=== PATIENT | male | born 1950 | race Two or more races ===

== ENCOUNTER 2019-09-18 22:00 | Inpatient (IN) | payer MEDICAID, OTHER ==
[~2019-09-18] VITALS: Ht 170.2 cm; Wt 117.8 kg
[2019-09-18 22:45] LABS: Basophils # (auto) 0 10 ^3/uL (0-0.2); Eosinophils # (auto) 0.2 10 ^3/uL (0-0.8); Eosinophils % (auto) 1.1 % (0.0-7.0); Lymphocytes # (auto) 0.6 10 ^3/uL (0.4-5.4); Mean Corpuscular Hgb Conc. 32.6 g/dL (32.0-36.0); Monocytes # (auto) 0.3 10 ^3/uL (0-1.3); Red Cell Distribution Width 14.3 % (11.8-14.3)
[2019-09-18] MEDS ORDERED: ACETAMINOPHEN 325 MG TAB PO ONE (22:45)
[2019-09-18 22:46] LABS: Basophils % (auto) 0.1 % (0.0-2.0); Hematocrit 43.1 % (41.0-53.0); Lymphocytes % (auto) 3.3 % (10.0-50.0); Mean Corpuscular Hemoglobin 26.8 pg (28.0-32.0); Mean Corpuscular Volume 82.3 fL (80.0-100.0); Monocytes % (auto) 1.6 % (0.0-12.0); Neutrophils # (auto) 16.5 10 ^3/uL (1.6-8.6); Neutrophils % (auto) 93.9 % (37.0-80.0); Platelet Count (auto) 195 10^3/uL (140-450); Red Blood Cells 5.23 10^6/uL (4.5-5.90); White Blood Cell 17.6 10^3/uL (4.4-10.8)
[2019-09-18 23:02] LABS: Albumin 2.8 g/dL (3.4-5.0); Anion Gap 13 (5-15); BUN/Creatinine Ratio 19.8; Blood Urea Nitrogen 55 mg/dL (7-18); Calcium 8.2 mg/dL (8.5-10.1); Carbon Dioxide 17 mmol/L (21-32); Chloride 105 mmol/L (98-107); GFR African American 29 mL/min; GFR Non-African American 24 mL/min; Glucose 151 mg/dL (74-106); Magnesium 2.1 mg/dL (1.6-2.6); Potassium 5.3 mmol/L (3.5-5.1); Sodium 135 mmol/L (136-145)
[2019-09-18 23:07] LABS: Alanine Aminotransferase 30 U/L (16-61); Alkaline Phosphatase 177 U/L (45-117); Aspartate Aminotransferase 42 U/L (15-37); Bilirubin, Total 1.1 mg/dL (0.2-1.0); INR 1.04 (0.9-1.15); Partial Thromboplastin Time 26.5 sec (23.64-32.05); Total Protein 7.1 g/dL (6.4-8.2)
[2019-09-18 23:13] LABS: Urine Bacteria MANY /hpf (None Seen); Urine Blood 2+ /uL (Negative); Urine Mucus FEW (None Seen); Urine Specific Gravity 1.013 (1.001-1.035); Urine WBC 6196 /hpf (0 - 3); Urine WBC Clumps PRESENT /hpf (None Seen)
[2019-09-18] MEDS ORDERED: SUCCINYLCHOLINE CHLORIDE 20 MG/ML 10ML VIAL IV ONE ×2 (23:14→23:15)
[2019-09-18] MEDS ORDERED: ETOMIDATE (2MG/ML) 20ML VIAL IV ONE ×2 (23:14→23:15)
[2019-09-18] MEDS ORDERED: SODIUM CHLORIDE 0.9% 2,000 ML IV ONE (23:15)
[2019-09-18] MEDS ORDERED: NOREPINEPHRINE 8 MG/250ML KIT 250 ML IV ONE (23:21)
[2019-09-18] MEDS: MIDAZOLAM DRIP 50 mg/50mL 50 ML IV SCH (23:28)
[2019-09-18] MEDS ORDERED: MIDAZOLAM HCL 5 MG/ML-1ML VIAL ONE (23:39)
[2019-09-18] MEDS: NOREPINEPHRINE 8 MG/250ML KIT 250 ML IV SCH (23:45)
[2019-09-18] MEDS ORDERED: MIDAZOLAM HCL 5 MG/ML-1ML VIAL IV ONE (23:45)
[2019-09-18 23:46] LABS: Lactic Acid w/Reflex 4.7 mmol/L (0.4-2.0)
[2019-09-19] VITALS (70 sets, daily range): BP systolic 91–129; BP diastolic 48–75
[2019-09-19] MEDS ORDERED: cefTRIAXone 1GM/50ML D5W 50 ML IV ONE (00:15)
[2019-09-19] MEDS ORDERED: AZITHROMYCIN 500MG/ 250ML 250 ML IV ONE (00:15)
[2019-09-19] MEDS ORDERED: SODIUM CHLORIDE 0.9% 3,000 ML IV ONE (00:15)
[2019-09-19] MEDS ORDERED: SODIUM CHLORIDE 0.9% 1,000 ML IV ONE (02:15)
[2019-09-19] MEDS ORDERED: SODIUM CHLORIDE 0.9% 1,000 ML IV SCH (02:45)
[2019-09-19 03:28] LABS: CRP High Sensitivity 9.32 mg/dL (< 0.3)
[2019-09-19] MEDS ORDERED: NITROGLYCERIN 0.4 MG SL TAB SL PRN (03:45)
[2019-09-19] MEDS ORDERED: MORPHINE SULF INJ 2 MG/ML SYRINGE 1ML IV PRN (03:45)
[2019-09-19 05:25] LABS: BUN/Creatinine Ratio 23.7; Calcium 7.2 mg/dL (8.5-10.1)
[2019-09-19] MEDS ORDERED: ALBUTEROL SULF 2.5 MG/0.5ML(0.5%) NEB SOLN NEB SCH (06:00)
[2019-09-19] MEDS ORDERED: IPRATROPIUM BROM 0.5 MG/2.5ML INH SOL NEB SCH (06:00)
[2019-09-19] MEDS: PIPERACILLIN-TAZOB 2.25GM 50 ML IV SCH ×4 (06:25→23:37)
[2019-09-19] MEDS: IPRATROPIUM BROM 0.5 MG/2.5ML INH SOL NEB SCH ×3 (07:00→22:21)
[2019-09-19] MEDS: ALBUTEROL SULF 2.5 MG/0.5ML(0.5%) NEB SOLN NEB SCH ×3 (07:00→22:21)
--- NOTE | 2019-09-19 08:45 | NUR ---
Admit to ICU from ER on vent CAROL ISBELLadmitted to ICU via gurhemal on lap machine tender, intubated and being bagged by Respiratory Therapist. Patient transfered to bed, connected to mechanical ventilator by therapist, BVM at bedside. Patient connected to ICU monitoring, weighed by bedscale, oriented to Miguel allred RN, unit, ventilator and sedation. NOTE: ON ISOLATION FOR COVID 19 -TESTED IN ER RESULTS NOT BACK YET. ATTEMPTED TO CALL NUMBER ON FACESHEET AND IS WRONG NUMBER FOR NOK.
[2019-09-19] MEDS ORDERED: METF-370 PO (09:44)
[2019-09-19] MEDS ORDERED: LISI-706 PO (09:44)
[2019-09-19] MEDS ORDERED: ASCORBIC ACID 1,000 MG TAB PO SCH (10:00)
[2019-09-19] MEDS ORDERED: CHOLECALCIFEROL (VITD3) 1,000IU=25mCg TAB PO SCH (10:00)
[2019-09-19] MEDS ORDERED: ZINC SULFATE 220mg CAP or TAB PO SCH (10:00)
[2019-09-19] MEDS: SODIUM CHLORIDE 0.9% 1,000 ML IV SCH (11:00)
--- NOTE | 2019-09-19 11:03 | NUR ---
DR TORRES AT BEDSIDE, EXAMINED PATIENT AND ASSISTED IN TURNING, NEW ORDER TO TURN IVF DOWN TO 60 ML/HR. DR ALSTON URINE OUTPUT. DR ALSTON URINE CULTURE SENT. DR ALSTON PATIENT HOME MEDS.
[2019-09-19] MEDS ORDERED: DEXTROSE (50%) 50ML SYRG IV PRN (11:15)
--- NOTE | 2019-09-19 11:45 | NUR ---
WOUND CARE NOTE: IN TO SEE PATIENT AT THIS TIME FOR SKIN INTEGRITY MONITORING. PATIENT RECENTLY ADMITTED TO [facility] WITH DIAGNOSIS OF SEPTIC SHOCK, ACUTE RESPIRATORY FAILURE. CURRENT ROD SCORE IS 10. PATIENT IS INTUBATED, SEDATED, APPEARS TO BE IN NO PAIN, USING SHUKLA/DIAZ PAIN SCALE. PATIENT TURNED TO LEFT SIDE, HE IS NOTED TO HAVE MILD HYPERPIGMENTED SKIN TO INTRAGLUTEAL AREA, BUT NO WOUNDS, NO AREAS THAT ARE NON BLANCHABLE TO ANY BONY PROMINENCE. PATIENT REPOSITIONED ONTO LEFT SIDE, REDISTRIBUTING PRESSURE POINTS USING PILLOWS/WEDGES. RECOMMEND: FREQUENT TURN SCHEDULE Q 2 HOURS, PRN CONDITION PERMITS, WITH PRESSURE REDISTRIBUTION USING PILLOWS/WEDGES, BID/PRN APPLICATION MOISTURE BARRIER CREAM, OPTIFOAM GENTLE SACRAL DRESSING PREVENTATIVE, DIETARY CONSULT FOR LOW ROD, SKIN/WOUND CARE PLAN, CONTINUED MONITORING BY WOUND CARE TEAM.
--- NOTE | 2019-09-19 13:17 | NUR ---
SPOKE WITH DTR ADMISSION COMPLETED, NUMBER PLACED IN CHART
[2019-09-19] MEDS: ACCU-CHEK COMFORT CURVE STRIP VI SCH ×3 (13:20→23:38)
[2019-09-19] MEDS: InsuLIN REG 1unit/0.01ml Soln (100units/ml) SC SCH ×3 (13:20→23:38)
--- NOTE | 2019-09-19 13:25 | NUR ---
DR HAMILTON AT BEDSIDE, EXAMINED PATIENT AND GAVE ORDER FOR BMP AT 1600
--- NOTE | 2019-09-19 16:14 | NUR ---
CHANGE HOUSE ATTENDANT AT BEDSIDE
[2019-09-19] MEDS: LINEZOLID 600MG/300ML 300 ML IV SCH (16:15)
[2019-09-19] MEDS: MIDAZOLAM DRIP 50 mg/50mL 50 ML IV SCH ×2 (16:17→19:54)
[2019-09-19 16:42] LABS: BUN/Creatinine Ratio 25.4; Potassium 4.2 mmol/L (3.5-5.1)
--- NOTE | 2019-09-19 18:05 | NUR ---
Respiratory note: RECEIVED PT ON VENT V14 VENT CONNECTED TO RED OUTLET AND O2 SOURCE. ALARMS ARE SET AND AUDIBLE AMBU BAG AND MASK AT BEDSIDE. BS ARE FINE COURSE T/O, SXD SCANT BLOODY BYRNES. RT NAME AND PAGER ASSIGNMENT WRITTEN ON PTS ROOM BOARD.WILL CONTINUE TO MONITOR Q2H AND NEEDED.
--- NOTE | 2019-09-19 18:30 | NUR ---
DR MULLEN AT BEDSIDE, EXAMINED PATIENT. NEW ORDER TO DC VERSED AND PUT ON FENT/VERSED. Addendum: 09/19/19 at 1920 by Miguel Buck RN STATED HE WILL PLACE CONSULT FOR PULMONOLOGY
--- NOTE | 2019-09-19 19:30 | NUR ---
OPENING SHIFT RECEIVED REPORT FROM DAY SHIFT RN. ASSUMED CARE OF PATIENT. PATIENT INTUBATED AND SEDATED WITH NO SIGNS OR SYMPTOMS OF SOB, PAIN OR DISTRESS. 02 SAT - 97%, PATIENT TOLERATING CURRENT VENT SETTINGS. POSITIVE COUGH AND GAG. RIGHT SUBCLAVIAN TLC AND LEFT WRIST IV - CLEAN/DRY/INTACT. GONZALEZ HUNG TO GRAVITY. SEDATION: VERSED - 15MG/HR VASOPRESSOR: LEVOPHED - 17MCG/MIN REPOSITIONED FOR COMFORT. BED IN LOWEST POSITION, SIDE RAILS UP X2. WILL CONTINUE TO MONITOR.
[2019-09-19] MEDS: fentaNYL Drip 2500mCg/250mlNS 250 ML IV SCH (19:56)
--- NOTE | 2019-09-19 20:18 | NUR ---
Respiratory note: AT BEDSIDE FOR ROUTINE VENT CHECK NO CHANGES MADE. WILL CONTINUE TO MONITOR.
--- NOTE | 2019-09-19 20:21 | NUR ---
SPOKE WITH DAUGHTER (KARLA) - BIRTHDAY AND LAST NAME VERIFIED. PASSWORD CREATED - ADRIANE. UPDATED DAUGHTER ON PATIENT STATUS.
[2019-09-19] MEDS ORDERED: AZITHROMYCIN 500MG/D5WorNS 250ml IV SCH (22:00)
--- NOTE | 2019-09-19 22:21 | NUR ---
Respiratory note: AT BEDSIDE FOR ROUTINE VENT CHECK NO CHANGES MADE. MED NEB TX GIVEN INLINE VIA AEROGEN. NO ADVERSE REACTION NOTED, PTS CURRENT TEMP IS 98.2F. WILL CONTINUE TO MONITOR
[2019-09-19] MEDS: NOREPINEPHRINE 8 MG/250ML KIT 250 ML IV SCH (23:00)
[2019-09-20] VITALS (100 sets, daily range): BP systolic 89–144; BP diastolic 54–85
--- NOTE | 2019-09-20 01:48 | NUR ---
MORNING CARE PERFORMED MORNING CARE WITH CHG WIPES AND WASH CLOTHS TO THE FACE. PARTIAL LINEN CHANGE AND GOWN CHANGED. REPOSITIONED FOR COMFORT. SKIN REASSESSED AT THIS TIME. ORAL AND GONZALEZ CARE PERFORMED. BED IN LOWEST POSITION. SIDE RAILS UP X2. WILL CONTINUE TO MONITOR.
[2019-09-20] MEDS: SODIUM CHLORIDE 0.9% 1,000 ML IV SCH ×2 (03:40→20:22)
[2019-09-20] MEDS: LINEZOLID 600MG/300ML 300 ML IV SCH ×2 (03:53→16:56)
[2019-09-20 04:17] LABS: Hematocrit 40.2 % (41.0-53.0); Hemoglobin 13.1 g/dL (13.5-17.5); Mean Corpuscular Hgb Conc. 32.5 g/dL (32.0-36.0); Mean Corpuscular Volume 83.1 fL (80.0-100.0); Platelet Count (auto) 215 10^3/uL (140-450); Red Blood Cells 4.84 10^6/uL (4.5-5.90); Red Cell Distribution Width 14.5 % (11.8-14.3); White Blood Cell 16.3 10^3/uL (4.4-10.8)
[2019-09-20 04:36] LABS: Albumin 2.4 g/dL (3.4-5.0); Calcium 7.9 mg/dL (8.5-10.1); Potassium 4.2 mmol/L (3.5-5.1)
[2019-09-20 04:40] LABS: BUN/Creatinine Ratio 21.6; Bilirubin, Total 0.7 mg/dL (0.2-1.0); Total Protein 6.3 g/dL (6.4-8.2)
[2019-09-20 04:55] LABS: Basophils % (manual) 0 (0.0-2.0); Blast Cells 0; Myelocytes % 0; Promyelocytes % 0
[2019-09-20 05:48] LABS: Band Neutrophils % (manual) 2; Eosinophils % (manual) 3 (0-7); Lymphocytes % (manual) 12 (10.0-50.0); Metamyelocytes % 1; Monocytes % (manual) 9 (0-12); Reactive Lymphocytes 1
[2019-09-20] MEDS: PIPERACILLIN-TAZOB 2.25GM 50 ML IV SCH (05:55)
[2019-09-20] MEDS: InsuLIN REG 1unit/0.01ml Soln (100units/ml) SC SCH ×4 (05:56→23:58)
[2019-09-20] MEDS: ACCU-CHEK COMFORT CURVE STRIP VI SCH ×4 (05:56→23:58)
[2019-09-20] MEDS: NOREPINEPHRINE 8 MG/250ML KIT 250 ML IV SCH (07:09)
--- NOTE | 2019-09-20 07:11 | NUR ---
END OF SHIFT REPORT GIVEN TO DAY SHIFT RN. CARE ENDORSED.
--- NOTE | 2019-09-20 09:00 | NUR ---
UPDATED DAUGHTERS X 2 ON PLAN OF CARE
--- NOTE | 2019-09-20 12:30 | NUR ---
DR MULLEN GAVE OK FOR CPAP TRIAL
[2019-09-20] MEDS ORDERED: ENOXAPARIN SOD 40 MG/0.4 ML SYRINGE SC ONE (12:45)
[2019-09-20] MEDS ORDERED: FAMOTIDINE (10MG/ML) 2ML VL IV ONE (13:00)
--- NOTE | 2019-09-20 13:45 | NUR ---
DR MULLEN PAGED REGARDING ABG RESULTS ON CPAP TRIAL
[2019-09-20] MEDS: PIPERACILLIN-TAZOB 3.375GM 100 ML IV SCH ×3 (13:53→23:58)
[2019-09-20] MEDS: ALBUTEROL SULF 2.5 MG/0.5ML(0.5%) NEB SOLN NEB SCH ×2 (14:16→22:24)
[2019-09-20] MEDS: IPRATROPIUM BROM 0.5 MG/2.5ML INH SOL NEB SCH ×2 (14:16→22:24)
--- NOTE | 2019-09-20 14:16 | NUR ---
Nutrition Assessment Notes Please refer to link for full assessment notes. Est Energy needs: 0697-6110 kcals (23-25 kcal/kgBW) d/t acute respiratory failure Est Protein needs: 52-83 gms/day (0.5-0.8 gm/kgBW) d/t acute respiratory failure Will continue to monitor and reassess prn. Addendum: 09/20/19 at [address] Amended: Links added.
--- NOTE | 2019-09-20 14:45 | NUR ---
PAGED DR MULLEN FOR SECOND TIME REGARDING ABG RESULTS ON CPAP TRIAL. PATIENT TOLERATING WELL.
--- NOTE | 2019-09-20 15:31 | NUR ---
EXTUBATED AT [address] MULLEN GAVE ORDER, TOLERATED WELL SPO2 97%
[2019-09-20] MEDS: PROPOFOL 100 ML IV SCH ×2 (16:56→19:31)
--- NOTE | 2019-09-20 18:31 | NUR ---
KEVIN HURST WOOD GOUGER FOR TYLENOL/PAIN MEDS. 101.7 RECTAL TEMP RN WILL PLACE ICE PACKS AND C/O PAIN IN LEFT LEG CRAMP
[2019-09-20] MEDS ORDERED: ACETAMINOPHEN 325 MG TAB PO PRN (18:45)
--- NOTE | 2019-09-20 19:20 | NUR ---
REPORT GIVEN TO FISH AGENT RN
--- NOTE | 2019-09-20 19:30 | NUR ---
OPENING SHIFT RECEIVED REPORT FROM DAY SHIFT RN. ASSUMED CARE OF PATIENT. PATIENT IN BED WITH NO SIGNS OR SYMPTOMS OF SOB OR DISTRESS. CURRENTLY ON SIMPLE MASK AT 12L 02, 02 SAT - 98%. PATIENT COMPLAINING OF LEFT LEG PAIN - 08/07. RIGHT SUBCLAVIAN TLC AND LEFT WRIST IV - CLEAN/DRY/INTACT. GONZALEZ HUNG TO GRAVITY. VASOPRESSORS: LEVOPHED - 10MCG/MIN REPOSITIONED FOR COMFORT. BED IN LOWEST POSITION, SIDE RAILS UP X2, CALL LIGHT WITHIN REACH. WILL CONTINUE TO MONITOR. Addendum: 09/20/19 at 2100 by KM HARVEY RN RN * PATIENT ON COOL AIR MIST MASK 40% 02, TOLERATING WELL.
[2019-09-20] MEDS: fentaNYL Drip 2500mCg/250mlNS 250 ML IV SCH (19:31)
[2019-09-20] MEDS ORDERED: ACETAMINOPHEN 650 MG RECT SUPP PR ONE (20:24)
[2019-09-20] MEDS ORDERED: ACETAMINOPHEN 650 MG RECT SUPP PR PRN (20:30)
--- NOTE | 2019-09-20 20:43 | NUR ---
ELEVATED TEMPERATURE - 102.4 DEGREES FAHRENHEIT PER RECTAL TEMPERATURE COVERED WITH TYLENOL SUPPOSITORY. COOLING MEASURES IN PLACE. WILL CONTINUE TO MONITOR.
[2019-09-20] MEDS: MIDAZOLAM DRIP 50 mg/50mL 50 ML IV SCH (23:18)
[2019-09-21] VITALS (75 sets, daily range): BP systolic 76–133; BP diastolic 39–87
--- NOTE | 2019-09-21 02:35 | NUR ---
PAIN PT C/O PAIN 12/07 TO L. KNEE. KNEE OBSERVED TO BE WARM/SWOLLEN. OFFERED PT ICE GEENA. PT REFUSED. MEDICATED PT WITH MORPHINE SIVP PER ORDER (SEE EMAR)
[2019-09-21] MEDS: MORPHINE SULF INJ 2 MG/ML SYRINGE 1ML IV PRN ×2 (02:40→20:42)
[2019-09-21] MEDS: LINEZOLID 600MG/300ML 300 ML IV SCH (03:30)
[2019-09-21] MEDS: InsuLIN REG 1unit/0.01ml Soln (100units/ml) SC SCH ×3 (05:07→18:00)
[2019-09-21] MEDS: ACCU-CHEK COMFORT CURVE STRIP VI SCH ×3 (05:08→18:15)
[2019-09-21 05:11] LABS: Hematocrit 37.8 % (41.0-53.0); Hemoglobin 12.7 g/dL (13.5-17.5); Mean Corpuscular Hemoglobin 27.5 pg (28.0-32.0); Mean Corpuscular Hgb Conc. 33.6 g/dL (32.0-36.0); Mean Corpuscular Volume 81.9 fL (80.0-100.0); Platelet Count (auto) 203 10^3/uL (140-450); Red Blood Cells 4.62 10^6/uL (4.5-5.90); Red Cell Distribution Width 14.3 % (11.8-14.3); White Blood Cell 11.9 10^3/uL (4.4-10.8)
[2019-09-21 05:21] LABS: Basophils % (manual) 0 (0.0-2.0); Blast Cells 0; Metamyelocytes % 0; Myelocytes % 0; Promyelocytes % 0; Reactive Lymphocytes 0
--- NOTE | 2019-09-21 05:45 | NUR ---
MORNING CARE PATIENT PERFORMED MORNING CARE ON SELF WITH WASH CLOTHS TO THE FACE. PARTIAL LINEN CHANGE. SKIN REASSESSED AT THIS TIME. REPOSITIONED FOR COMFORT. BED IN LOWEST POSITION, SIDE RAILS UP X2, CALL LIGHT WITHIN REACH. WILL CONTINUE TO MONITOR.
[2019-09-21 05:48] LABS: BUN/Creatinine Ratio 13.8; Calcium 8.2 mg/dL (8.5-10.1); Potassium 4.6 mmol/L (3.5-5.1)
[2019-09-21] MEDS: NOREPINEPHRINE 8 MG/250ML KIT 250 ML IV SCH (05:50)
[2019-09-21] MEDS: PIPERACILLIN-TAZOB 3.375GM 100 ML IV SCH ×2 (05:50→12:45)
--- NOTE | 2019-09-21 06:20 | NUR ---
SWALLOW TEST TESTED PATIENT'S ABILITY TO SWALLOW WITH ICE CHIPS. PATIENT TOLERATED WELL, NO SIGNS OR SYMPTOMS OF COUGHING OR CHOCKING. WILL CONTINUE TO MONITOR.
[2019-09-21 06:25] LABS: Band Neutrophils % (manual) 2; Eosinophils % (manual) 4 (0-7); Lymphocytes % (manual) 20 (10.0-50.0); Monocytes % (manual) 8 (0-12)
[2019-09-21] MEDS ORDERED: NALBUPHINE HCL 10 MG/1ml INJECTION IV ONE (06:45)
--- NOTE | 2019-09-21 06:45 | NUR ---
HOSPITALIST SPOKE WITH HOSPITALIST, MADE AWARE THAT PATIENT IS COMPLAINING OF PAIN THE LEFT KNEE. RECEIVED ORDERS FOR NUBAIN 10MG IV ONCE. NOTED AND CARRIED OUT, WILL CONTINUE TO MONITOR.
[2019-09-21] MEDS: ALBUTEROL SULF 2.5 MG/0.5ML(0.5%) NEB SOLN NEB SCH ×3 (07:00→22:30)
[2019-09-21] MEDS: IPRATROPIUM BROM 0.5 MG/2.5ML INH SOL NEB SCH ×3 (07:00→22:30)
--- NOTE | 2019-09-21 07:34 | NUR ---
SPOKE WITH NADEEN (DAUGHTER) PASSWORD VERIFIED, UPDATED DAUGHTER ON PATIENT STATUS.
--- NOTE | 2019-09-21 07:38 | NUR ---
END OF SHIFT REPORT GIVEN TO DAY SHIFT RN. CARE ENDORSED.
--- NOTE | 2019-09-21 07:38 | NUR ---
REPORT RECEIVED FROM REGENERATOR OPERATOR NURSE. PATIENT IN BED RESTLESS AND COMPLAINING OF PAIN IN LEFT LEG. RESPIRATIONS EVEN AND UNLABORED. WILL CALL MD FOR PAIN MEDICATIONS. CALL LIGHT IN REACH, BED IN LOW POSITION. WILL CONTINUE TO MONITOR.
[2019-09-21] MEDS ORDERED: ACETAMINOPHEN 325 MG TAB PO PRN (08:15)
--- NOTE | 2019-09-21 08:45 | NUR ---
SWALLOW EVALUATION ADMINISTER WATER, APPLE SAUCE AND JELLO TO PATIENT WITH NO NOTED DIFFICULTY SWALLOWING. ADVANCED DIET PER PROTOCOL.
--- NOTE | 2019-09-21 09:38 | NUR ---
SPOKE TO DR MAJOR ABOUT PATIENTS COMPLAINT OF PAIN TO LEFT LEG. PER MD ORDER VILMA Q6HR PRN. ALL ORDERS NOTED IN CHART.
[2019-09-21] MEDS ORDERED: HYDROcodone-ACET 5/325MG TAB PO PRN (09:45)
[2019-09-21] MEDS: FAMOTIDINE (10MG/ML) 2ML VL IV SCH (10:33)
[2019-09-21] MEDS: HYDROcodone-ACET 5/325MG TAB PO PRN ×2 (10:33→16:22)
[2019-09-21] MEDS: ENOXAPARIN SOD 40 MG/0.4 ML SYRINGE SC SCH (10:33)
--- NOTE | 2019-09-21 12:35 | NUR ---
DR MAJOR AT BEDSIDE TO ASSESS PATIENT AND DISCUSS PLAN OF CARE. ALL ORDERS NOTED IN CHART.
[2019-09-21] MEDS ORDERED: KETOROLAC TROMETH 30 MG/ML 1ML VIAL IV ONE (12:45)
--- NOTE | 2019-09-21 14:05 | NUR ---
DR HAMILTON AT BEDSIDE TO ASSESS PATIENT AND DISCUS PLAN OF CARE. Addendum: 09/21/19 at 1527 by Hiwot Granados RN PER MD WILL SIGN OFF PATIENTS CASE AT THIS TIME.
--- NOTE | 2019-09-21 14:36 | NUR ---
PHYSICAL THERAPIST AT BEDSIDE TO EVALUATE PATIENT. PERFORMED RANGE OF MOTION AND SAT PATIENT AT EDGE OF BED. PATIENT CURRENTLY ON PRESSORS.
--- NOTE | 2019-09-21 15:31 | NUR ---
assessment Patient is a 69 year old male who is in ICU on a vent. Per patients mir Kwan prior to admission patient lived home alone and was independent. Patient has a wheelchair for home use. Per Aniya patient was in severe pain and 911 was called. I informed Aniya that patients post discharge needs to be determined prior to discharge. nAiya verbalized understanding. Addendum: 09/21/19 at 1533 by Kerri MATHIS Amended: Links added.
[2019-09-21] MEDS ORDERED: levoFLOXacin 750MG 150 ML IV ONE (16:00)
[2019-09-22] VITALS (11 sets, daily range): BP systolic 100–128; BP diastolic 40–82
[2019-09-22] MEDS: ACCU-CHEK COMFORT CURVE STRIP VI SCH ×4 (00:54→17:56)
[2019-09-22] MEDS: ACETAMINOPHEN 325 MG TAB PO PRN (00:56)
[2019-09-22] MEDS: HYDROcodone-ACET 5/325MG TAB PO PRN ×3 (01:16→16:06)
--- NOTE | 2019-09-22 02:58 | NUR ---
AT 1999, PT IS AWAKE IN NO SOB, ON SR WITHOUT ECTOPY. IV SITE IS PATENT
--- NOTE | 2019-09-22 03:02 | NUR ---
[id number] C/O OF PAIN IN THE LEGS AND SHOULDER SO MSO4 1 MG IVP GIVEN
--- NOTE | 2019-09-22 03:04 | NUR ---
AT 0000. SLEEPING
--- NOTE | 2019-09-22 03:05 | NUR ---
O200. RESTLESS THIS TIME
--- NOTE | 2019-09-22 03:06 | NUR ---
AT 0216 , NORCOI TAB WAS GIVEN FOR LEG PAIN
--- NOTE | 2019-09-22 04:43 | NUR ---
BET 0230 AND AT THIS TIME PT FINALLY FELL ASLEEP
[2019-09-22 04:50] LABS: Basophils # (auto) 0 10 ^3/uL (0-0.2); Eosinophils # (auto) 0.3 10 ^3/uL (0-0.8)
[2019-09-22 04:53] LABS: Basophils % (auto) 0.2 % (0.0-2.0); Eosinophils % (auto) 2.1 % (0.0-7.0); Hematocrit 35.8 % (41.0-53.0); Hemoglobin 11.6 g/dL (13.5-17.5); Lymphocytes # (auto) 1.4 10 ^3/uL (0.4-5.4); Lymphocytes % (auto) 11.6 % (10.0-50.0); Mean Corpuscular Hgb Conc. 32.5 g/dL (32.0-36.0); Mean Corpuscular Volume 83.3 fL (80.0-100.0); Monocytes # (auto) 0.9 10 ^3/uL (0-1.3); Monocytes % (auto) 7.5 % (0.0-12.0); Neutrophils # (auto) 9.6 10 ^3/uL (1.6-8.6); Neutrophils % (auto) 78.6 % (37.0-80.0); Platelet Count (auto) 215 10^3/uL (140-450); Red Cell Distribution Width 14.2 % (11.8-14.3); White Blood Cell 12.3 10^3/uL (4.4-10.8)
[2019-09-22 05:03] LABS: BUN/Creatinine Ratio 13.5; Potassium 4.5 mmol/L (3.5-5.1)
[2019-09-22] MEDS: InsuLIN REG 1unit/0.01ml Soln (100units/ml) SC SCH ×4 (06:00→17:56)
[2019-09-22] MEDS: ALBUTEROL SULF 2.5 MG/0.5ML(0.5%) NEB SOLN NEB SCH ×3 (06:29→22:45)
[2019-09-22] MEDS: IPRATROPIUM BROM 0.5 MG/2.5ML INH SOL NEB SCH ×3 (06:29→22:45)
--- NOTE | 2019-09-22 07:45 | NUR ---
INITIAL ASSESSMENT Report received from Keely RN, care assumed. Patient is awake, alert, and oriented. Patient able to follow commands. No distress noted at this time. Patient able to move all extremities equally. Pulses palpable bilaterally. Sinus rhythm 80-90's on bedside monitor. Patient on 2 L nasal cannula, denies shortness of breath. Bowel sounds present. Andrade catheter patent, secure, and hung below bladder. Skin intact. Bed locked in lowest position, call light within reach. Will continue to monitor.
--- NOTE | 2019-09-22 08:25 | NUR ---
PAIN Patient c/o pain 8/10 in bilateral legs. PRN Farrell given, Will reassess pain.
--- NOTE | 2019-09-22 08:36 | NUR ---
DOWNGRADE Lizzie headlight adjuster spoke with regarding downgrade orders. RADHA orders received.
--- NOTE | 2019-09-22 09:25 | NUR ---
PAGED ordered for patient to be tele status.
--- NOTE | 2019-09-22 09:27 | NUR ---
PHYSICAL THERAPIST Shawn PT at bedside. Patient positioned on side of bed. Patient then ambulated to bedside commode for bowel movement. Patient then ambulate two feet then sat in chair to eat breakfast. Vital signs stable, call light within reach.
[2019-09-22] MEDS ORDERED: levoFLOXacin 500MG 100 ML IV SCH (10:00)
[2019-09-22] MEDS: FAMOTIDINE (10MG/ML) 2ML VL IV SCH (10:07)
[2019-09-22] MEDS: levoFLOXacin 750MG 150 ML IV SCH (10:07)
--- NOTE | 2019-09-22 11:15 | NUR ---
RECIEVED REPORT FROM CAMBERING MACHINE OPERATOR.
--- NOTE | 2019-09-22 11:40 | NUR ---
ICU PT TRANSFER TO TELE Patient placed on tele #[id number]. Patient transferred to [facility] via bed, portable oxygen, and all personal belongings. Bed locked in lowest position, call light and personal belongings within reach.
[2019-09-22] MEDS: ENOXAPARIN SOD 40 MG/0.4 ML SYRINGE SC SCH (11:45)
--- NOTE | 2019-09-22 11:45 | NUR ---
RECEIVED AND ASSUMED CARE OF PT FULLY AWAKE AND RESPONSIVE. MALAY SPEAKING PRIMARILY. IS ABLE TO MAKE HIS NEEDS KNOWN IN BROKEN IRISH. RESPIRATIONS EVEN UNLABORED, DENIES DISCOMFORT. V/S WNL.
[2019-09-22] MEDS ORDERED: COLCHICINE 0.6 MG CAP PO ONE (13:15)
--- NOTE | 2019-09-22 15:00 | NUR ---
ASSUMED CARE ASSUMED CARE OF PATIENT AFTER RECEIVING REPORT. PATIENT ORIENTED TO THIS RN AND UPDATED ON POC. WILL CONTINUE TO MONITOR.
--- NOTE | 2019-09-22 15:20 | NUR ---
REPORT OFF TO LICO MCCABE
--- NOTE | 2019-09-22 15:24 | NUR ---
GONZALEZ DC'D 1600ML CLOUDY LIGHT HARPREET URINE WITH SEDIMENT DRAINED FROM GONZALEZ CATHETER. CATHETER REMOVED FOLLOWING DEFLATION OF BALLOON. PATIENT TOLERATED WELL.
--- NOTE | 2019-09-22 16:40 | NUR ---
URINALYSIS CLEAN CATCH SPECIMEN GIVEN BY PATIENT. SENT TO LAB.
[2019-09-22 17:33] LABS: Urine Bacteria NONE SEEN /hpf (None Seen); Urine Blood 3+ /uL (Negative); Urine Specific Gravity 1.017 (1.001-1.035); Urine WBC 2663 /hpf (0 - 3)
[2019-09-22] MEDS: TAMSULOSIN HYDROCHLORIDE 0.4 MG CAP PO SCH (17:56)
--- NOTE | 2019-09-22 19:20 | NUR ---
Opening Shift Note Assumed care of patient, awake and alert. No S/S of distress/SOB or pain. Instructed on POC and to call for assist PRN, will continue to monitor for changes Q1hr and PRN. PATIENT RESTING IN BED, BED IN LOWEST POSITION, SIDE RALES UP X2, CALL LIGHT AT HIS SIDE WITHIN REACH.
[2019-09-23] MEDS: HYDROcodone-ACET 5/325MG TAB PO PRN (00:37)
--- NOTE | 2019-09-23 00:39 | NUR ---
PATIENT COMPLAINING OF PAIN PATIENT STATES HE HAS BACK PAIN 11/07, NORCO 5/325 GIVEN WILL REASSESS WITHIN ONE HOUR.
[2019-09-23 05:06] VITALS: BP 114/67
[2019-09-23] MEDS: InsuLIN REG 1unit/0.01ml Soln (100units/ml) SC SCH ×4 (06:00→17:38)
[2019-09-23] MEDS: ACCU-CHEK COMFORT CURVE STRIP VI SCH ×4 (06:04→17:38)
[2019-09-23] MEDS: IPRATROPIUM BROM 0.5 MG/2.5ML INH SOL NEB SCH ×3 (06:44→22:10)
[2019-09-23] MEDS: ALBUTEROL SULF 2.5 MG/0.5ML(0.5%) NEB SOLN NEB SCH ×3 (06:44→22:10)
[2019-09-23 07:00] LABS: Hematocrit 38.1 % (41.0-53.0); Hemoglobin 12.6 g/dL (13.5-17.5); Mean Corpuscular Hemoglobin 27.1 pg (28.0-32.0); Platelet Count (auto) 311 10^3/uL (140-450); Red Blood Cells 4.65 10^6/uL (4.5-5.90); White Blood Cell 12.7 10^3/uL (4.4-10.8)
[2019-09-23 07:12] LABS: Basophils % (manual) 0 (0.0-2.0); Blast Cells 0; Promyelocytes % 0; Reactive Lymphocytes 0
--- NOTE | 2019-09-23 07:20 | NUR ---
Opening Shift note Assumed care of patient from NOC RN. Patient is AOx4, no signs and symptoms of distress, sob, or pain noted. Bed is in lowest locked position, side rails up x2, and call light is within reach. Updated patient on plan of care, patient verbalized understanding. I will continue to monitor q1hr and PRN.
[2019-09-23 07:30] LABS: Albumin 2.5 g/dL (3.4-5.0); Calcium 8.7 mg/dL (8.5-10.1); Potassium 4.5 mmol/L (3.5-5.1)
[2019-09-23 07:33] LABS: Bilirubin, Total 0.9 mg/dL (0.2-1.0); Total Protein 7.1 g/dL (6.4-8.2)
[2019-09-23 08:27] VITALS: BP 120/73
[2019-09-23 08:34] LABS: Band Neutrophils % (manual) 2; Lymphocytes % (manual) 14 (10.0-50.0)
[2019-09-23 08:35] LABS: Eosinophils % (manual) 5 (0-7); Metamyelocytes % 2; Monocytes % (manual) 9 (0-12); Myelocytes % 2
[2019-09-23] MEDS: levoFLOXacin 750MG 150 ML IV SCH (10:32)
[2019-09-23] MEDS: ENOXAPARIN SOD 40 MG/0.4 ML SYRINGE SC SCH (10:33)
[2019-09-23] MEDS: COLCHICINE 0.6 MG CAP PO SCH (10:33)
[2019-09-23] MEDS: FAMOTIDINE 20 MG TAB PO SCH (10:33)
[2019-09-23 12:59] VITALS: BP 98/61
[2019-09-23 17:24] VITALS: BP 135/75
[2019-09-23] MEDS: TAMSULOSIN HYDROCHLORIDE 0.4 MG CAP PO SCH (17:39)
--- NOTE | 2019-09-23 19:40 | NUR ---
end of shift note endorsed care of patient to NOC ELIOT Neumann. No s/s of distress noted at this time.
[2019-09-23] MEDS: ACETAMINOPHEN 325 MG TAB PO PRN (21:19)
--- NOTE | 2019-09-23 21:20 | NUR ---
PATIENT COMPLAINING OF MILD PAIN PATIENT REPORTS PAIN 3/10 IN HIS FOOT, TYLENOL 650MG GIVEN WILL REASSESS WITHIN ONE HOUR
[2019-09-23 22:00] VITALS: BP 132/84
[2019-09-24 05:00] VITALS: BP 134/79
[2019-09-24 05:48] LABS: Eosinophils # (auto) 0.4 10 ^3/uL (0-0.8); Lymphocytes # (auto) 1.4 10 ^3/uL (0.4-5.4); White Blood Cell 10.7 10^3/uL (4.4-10.8)
[2019-09-24 05:51] LABS: Basophils # (auto) 0.1 10 ^3/uL (0-0.2); Basophils % (auto) 0.6 % (0.0-2.0); Eosinophils % (auto) 3.6 % (0.0-7.0); Hematocrit 40.1 % (41.0-53.0); Hemoglobin 13.4 g/dL (13.5-17.5); Lymphocytes % (auto) 12.8 % (10.0-50.0); Mean Corpuscular Hemoglobin 27.3 pg (28.0-32.0); Mean Corpuscular Hgb Conc. 33.4 g/dL (32.0-36.0); Mean Corpuscular Volume 81.7 fL (80.0-100.0); Monocytes # (auto) 0.8 10 ^3/uL (0-1.3); Monocytes % (auto) 7.7 % (0.0-12.0); Neutrophils % (auto) 75.3 % (37.0-80.0); Nucleated Red Blood Cells % 0.1 %; Platelet Count (auto) 327 10^3/uL (140-450); Red Blood Cells 4.91 10^6/uL (4.5-5.90); Red Cell Distribution Width 13.7 % (11.8-14.3)
[2019-09-24] MEDS: ACCU-CHEK COMFORT CURVE STRIP VI SCH ×5 (06:00→23:58)
[2019-09-24] MEDS: InsuLIN REG 1unit/0.01ml Soln (100units/ml) SC SCH ×5 (06:00→23:58)
[2019-09-24 06:05] LABS: BUN/Creatinine Ratio 20.4; Calcium 8.8 mg/dL (8.5-10.1); Potassium 4.4 mmol/L (3.5-5.1)
[2019-09-24] MEDS: ALBUTEROL SULF 2.5 MG/0.5ML(0.5%) NEB SOLN NEB SCH ×3 (06:13→21:14)
[2019-09-24] MEDS: IPRATROPIUM BROM 0.5 MG/2.5ML INH SOL NEB SCH ×3 (06:13→21:14)
--- NOTE | 2019-09-24 07:35 | NUR ---
Opening shift note care of patient assumed from NOC ELIOT Neumann. Patient is AOx4 no s/s of distress noted. Updated patient on plan of care and they verbalized understanding. Bed is in lowest locked position and call light is within reach. I will continue to monitor Q1hr and PRN.
[2019-09-24 09:04] VITALS: BP 139/78
[2019-09-24] MEDS: ENOXAPARIN SOD 40 MG/0.4 ML SYRINGE SC SCH (10:05)
[2019-09-24] MEDS: levoFLOXacin 750MG 150 ML IV SCH (10:05)
[2019-09-24] MEDS: FAMOTIDINE 20 MG TAB PO SCH (10:05)
[2019-09-24] MEDS: COLCHICINE 0.6 MG CAP PO SCH (10:05)
[2019-09-24 11:18] VITALS: BP 136/77
[2019-09-24 12:52] VITALS: BP 121/79
--- NOTE | 2019-09-24 15:00 | NUR ---
patient complaint of pain patient stated feeling pain in the left knee. patient stated he is comfortable and is not requesting pain medication at this time. I will continue to monitor Q1hr and PRN.
[2019-09-24 17:07] VITALS: BP 131/77
[2019-09-24] MEDS: TAMSULOSIN HYDROCHLORIDE 0.4 MG CAP PO SCH (17:45)
--- NOTE | 2019-09-24 17:48 | NUR ---
PATIENT COMPLAINT OF PAIN Patient states having L knee pain 6/10 pain and requesting pain medication. I will give ordered PRN medication for that pain level.
[2019-09-24] MEDS: HYDROcodone-ACET 5/325MG TAB PO PRN (18:11)
--- NOTE | 2019-09-24 19:05 | NUR ---
End of shift note care of patient endorsed to NOC ELIOT Velasco. No s/s of distress noted at this time.
--- NOTE | 2019-09-24 19:35 | NUR ---
Opening Shift Note Assumed care of patient, AOx4. Patient is Grenadian speaking. Fall and safety precautions in place. No S/S of distress/SOB or pain. Call light within reach and able to use. Instructed on POC and to call for assist PRN, patient verbalized understanding and in agreement. Will continue to monitor for changes Q1hr and PRN.
[2019-09-24 22:00] VITALS: BP 108/61
[2019-09-25 05:00] VITALS: BP 112/63
[2019-09-25] MEDS: InsuLIN REG 1unit/0.01ml Soln (100units/ml) SC SCH ×4 (05:48→23:41)
[2019-09-25] MEDS: ACCU-CHEK COMFORT CURVE STRIP VI SCH ×4 (05:48→23:41)
[2019-09-25 06:07] LABS: Basophils # (auto) 0.1 10 ^3/uL (0-0.2); Eosinophils # (auto) 0.4 10 ^3/uL (0-0.8); Hematocrit 40.6 % (41.0-53.0); Hemoglobin 13.2 g/dL (13.5-17.5); Lymphocytes # (auto) 1.7 10 ^3/uL (0.4-5.4); Monocytes # (auto) 0.9 10 ^3/uL (0-1.3); Nucleated Red Blood Cells % 0.1 %
[2019-09-25 06:09] LABS: Basophils % (auto) 0.6 % (0.0-2.0); Lymphocytes % (auto) 13.6 % (10.0-50.0); Mean Corpuscular Hemoglobin 26.9 pg (28.0-32.0); Mean Corpuscular Hgb Conc. 32.7 g/dL (32.0-36.0); Mean Corpuscular Volume 82.3 fL (80.0-100.0); Neutrophils # (auto) 9.6 10 ^3/uL (1.6-8.6); Neutrophils % (auto) 75.8 % (37.0-80.0); Platelet Count (auto) 387 10^3/uL (140-450); Red Blood Cells 4.93 10^6/uL (4.5-5.90); Red Cell Distribution Width 13.7 % (11.8-14.3); White Blood Cell 12.6 10^3/uL (4.4-10.8)
[2019-09-25 06:11] LABS: BUN/Creatinine Ratio 23.9; Potassium 4.7 mmol/L (3.5-5.1)
[2019-09-25] MEDS: IPRATROPIUM BROM 0.5 MG/2.5ML INH SOL NEB SCH ×3 (06:51→22:34)
[2019-09-25] MEDS: ALBUTEROL SULF 2.5 MG/0.5ML(0.5%) NEB SOLN NEB SCH ×3 (06:51→22:34)
[2019-09-25 09:06] VITALS: BP 112/72
[2019-09-25] MEDS ORDERED: AZITHROMYCIN 250 MG TAB PO SCH (10:00)
[2019-09-25] MEDS: FAMOTIDINE 20 MG TAB PO SCH (10:17)
[2019-09-25] MEDS: COLCHICINE 0.6 MG CAP PO SCH (10:17)
[2019-09-25] MEDS: ENOXAPARIN SOD 40 MG/0.4 ML SYRINGE SC SCH (10:18)
[2019-09-25] MEDS ORDERED: levoFLOXacin 250 MG TAB PO ONE (11:00)
--- NOTE | 2019-09-25 11:00 | NUR ---
DR TORRES SAW PATIENT AND REPORT HE WILL PUT IN ORDERS FOR ORTHO CONSULT FOR PT KNEE PAIN, REPORTS TO TAMMY PT DOWN ON , AND REMOVE CENTRAL LINE AND PLACE PERIPHERAL IV. RECORDS MANAGEMENT SPECIALIST GARTH TRANSLATED CONVERSATION BETWEEN AND PATIENT. PT VERBALIZED UNDERSTANDING.
--- NOTE | 2019-09-25 12:22 | NUR ---
ASSESSED PT OXYGEN LEVEL ON SATURATION 93%. PT REPORTS NO SOB OR DISTRESS. PT REPORTS HE DOES NOT USE 02 AT HOME.
[2019-09-25 12:30] VITALS: BP 118/68
--- NOTE | 2019-09-25 15:04 | NUR ---
ATTEMPTED IV TWICE USING STERILE TECHNIQUE ON LEFT FORE ARM. UNABLE TO OBTAIN ACCESS. PRESSURE DRESSINGS APPLIED. PT TOLERATED PROCEDURE WELL. ASKED ECHO RESOURCE TO ASSIST. ECHO REPORTS SHE WILL ATTEMPT IV. WILL DC CENTRAL LINE ONCE NEW ACCESS IS OBTAINED.
[2019-09-25 17:02] VITALS: BP 132/91
--- NOTE | 2019-09-25 17:48 | NUR ---
NEW IV PLACED, 22G LFA USING STERILE TECHNIQUE BY ECHO MCCABE. PT CENTRAL LINE DC'D, PRESSURE APPLIED FOR 10 MINUTES TO SITE WITH 4X4 GAUZE THEN TAPED IN PLACE. NO BLOOD NOTED AT SITE. SUTURES REMOVED. PT TOLERATED PROCEDURE WELL, WILL CONTINUE TO MONITOR.
[2019-09-25] MEDS: TAMSULOSIN HYDROCHLORIDE 0.4 MG CAP PO SCH (18:09)
--- NOTE | 2019-09-25 19:30 | NUR ---
Opening Shift Note Assumed care of patient, AOx4. Fall and safety precautions in place. No S/S of distress/SOB or pain. Call light within reach and able to use. Instructed on POC and to call for assist PRN, patient verbalized understanding and in agreement. Will continue to monitor for changes Q1hr and PRN.
[2019-09-25 21:46] VITALS: BP 124/74
[2019-09-26 05:43] VITALS: BP 114/71
[2019-09-26] MEDS: ACCU-CHEK COMFORT CURVE STRIP VI SCH ×3 (05:54→17:01)
[2019-09-26] MEDS: InsuLIN REG 1unit/0.01ml Soln (100units/ml) SC SCH ×3 (05:56→17:00)
[2019-09-26] MEDS: IPRATROPIUM BROM 0.5 MG/2.5ML INH SOL NEB SCH ×2 (06:45→14:00)
[2019-09-26] MEDS: ALBUTEROL SULF 2.5 MG/0.5ML(0.5%) NEB SOLN NEB SCH ×2 (06:45→14:00)
[2019-09-26 09:00] VITALS: BP 118/75
[2019-09-26] MEDS: COLCHICINE 0.6 MG CAP PO SCH (09:44)
[2019-09-26] MEDS: FAMOTIDINE 20 MG TAB PO SCH (09:45)
[2019-09-26] MEDS ORDERED: levoFLOXacin 250 MG TAB PO SCH (10:00)
--- NOTE | 2019-09-26 15:37 | NUR ---
Received call from ELIOT Francois to informed me patient needs transportation home but is unable to communicate with patient since his first language is Montenegrin. Placed call to patient daughter Aniya Ph: ) advising her patient is discharged. Per Aniya family will transport patient home. Informed ELIOT Francois. Notify PARTH Frausto.
--- NOTE | 2019-09-26 16:33 | NUR ---
Nutrition Followup Notes Pt wt is 117.8 kg Pt is on a CCHO 60g oral diet, appetite is good aeb 100% x5 PO intake per RN doc. Pt with no distress or complaints when rounded this morning. Pt doing well. Will continue to monitor PO status, skin status, pertinent labs and weight trends. Will f/u in 3 to 5 days. Est Energy needs: 2217-4093 kcals (23-25 kcal/kgBW) d/t acute respiratory failure Est Protein needs: 52-83 gms/day (0.5-0.8 gm/kgBW) d/t acute respiratory failure Will continue to monitor and reassess prn. LABS: BUN 34 H, CR 1.42 H, GFR 53 L, ALB 2.5 L GI: Last date of BM unknown per RN doc. BS: 20 low risk, please refer to wound assessment report for full details. PES: Problem 1) Increased nutrient needs r/t pt with no PO intake aeb pt sedated, intubated, NPO 2) Obesity r/t energy intake in excess of energy needs aeb 161% IBW and BMI of 36.0 kg/m2 3) Altered nutrition related lab values r/t current/chronic medical condition aeb elev RFTs, low GFR, hyoerglyc, hypoprotein, mod hypoalb Comments Will continue to monitor PO status, skin status, pertinent labs and weight trends. Will f/u in 2 to 3 days. 1) Continue to closely monitor pt NPO status (RESOLVED) 2) If pt remains NPO for the next 48 hours, consider EN/PN nutrition support. If EN support initiated, consider Glucerna 1.2 @ 75 ml/hr goal rate. (RESOLVED) 3) Gradually advance pt to oral CCHO 60g diet when medically feasible and as tolerated (RESOLVED) 4) Continue current plan of care
[2019-09-26 17:03] VITALS: BP 132/78
[2019-09-26] MEDS: TAMSULOSIN HYDROCHLORIDE 0.4 MG CAP PO SCH (17:42)
--- NOTE | 2019-09-26 18:31 | NUR ---
Discharge instructions given as ordered. Encourage to follow up with PMD (Follow up with Dr. Lacey Nieto in 1-2 weeks Address : [phone] Address : [address] [place] [address], [id number]) as instructed. All questions and concerns addressed. Patient verbalized understanding. Medication reconciliation form completed and copy given to patient. Home medications held in Pharmacy returned to patient. IV removed with catheter intact, pressure dressing applied. Telemetry unit returned to ICU. Patient taken to vehicle via wheelchair with all personal belongings, accompanied by staff and family member. No distress noted at time of departure.
== END 2019-09-26 18:30 | disposition home or self-care (01) | DRG 720 ==
LOC: EDBD 22:00 → ER 22:00 → OVERFLOW 22:01 → ICU WEST 09-19 08:43 → TELE-WESTW 09-22 11:38
PROVIDERS: ADMIT Nurse Practitioner; ATTEND Internal Medicine
PROC: 5A1945Z Respiratory Ventilation, 24-96 Consecutive Hours (ICD-10-PCS; principal; 2019-09-18)
PROC: 0BH17EZ Insertion of Endotracheal Airway into Trachea, Via Natural or Artificial Opening (ICD-10-PCS; 2019-09-18)
PROC: 02HV33Z Insertion of Infusion Device into Superior Vena Cava, Percutaneous Approach (ICD-10-PCS; 2019-09-18)
DX: A41.51 Sepsis due to Escherichia coli [E. coli] (principal); N17.0 Acute kidney failure with tubular necrosis; J96.01 Acute respiratory failure with hypoxia; R65.21 Severe sepsis with septic shock; I50.42 Chronic combined systolic (congestive) and diastolic (congestive) heart failure; J15.4 Pneumonia due to other streptococci; E11.22 Type 2 diabetes mellitus with diabetic chronic kidney disease; N18.9 Chronic kidney disease, unspecified; N39.0 Urinary tract infection, site not specified; J02.0 Streptococcal pharyngitis; E87.1 Hypo-osmolality and hyponatremia; E87.5 Hyperkalemia; E66.9 Obesity, unspecified; M10.9 Gout, unspecified; Z03.818 Encounter for observation for suspected exposure to other biological agents ruled out; Z79.899 Other long term (current) drug therapy; Z79.84 Long term (current) use of oral hypoglycemic drugs; Z79.51 Long term (current) use of inhaled steroids; Z68.41 Body mass index [BMI] 40.0-44.9, adult
CPT/HCPCS: 31500; 36415; 36556; 36600; 71045; 73564; 76775; 80048; 80053; 80320; 81001; 82728; 82805; 82962; 83605; 83615; 83735; 83880; 84443; 84484; 84550; 85007; 85025; 85027; 85379; 85610; 85730; 86141; 87040; 87070; 87077; 87081; 87086; 87088; 87186; 87205; 87804; 87880; 93306; 93970; 94002; 94003; 94640; 97116; 97530; 99152; G0378; J0330; J0696; J1815; J1885; J1956; J2250; J2543; J3490

== ENCOUNTER 2020-03-24 09:42 | Inpatient (IN) | payer MEDICAID ==
[~2020-03-24] VITALS: Ht 165.1 cm; Wt 101.9 kg
[~2020-03-24 09:42] MED LIST: LISI-706 PO; METF-370 PO
[2020-03-24 10:56] LABS: Basophils # (auto) 0 10 ^3/uL (0-0.2); Basophils % (auto) 0.4 % (0.0-2.0); Eosinophils # (auto) 0.1 10 ^3/uL (0-0.8); Eosinophils % (auto) 0.7 % (0.0-7.0); Hematocrit 42.7 % (41.0-53.0); Hemoglobin 14.5 g/dL (13.5-17.5); Lymphocytes # (auto) 1.1 10 ^3/uL (0.4-5.4); Lymphocytes % (auto) 14.8 % (10.0-50.0); Mean Corpuscular Volume 85.2 fL (80.0-100.0); Monocytes # (auto) 0.6 10 ^3/uL (0-1.3); Monocytes % (auto) 8.1 % (0.0-12.0); Neutrophils # (auto) 5.5 10 ^3/uL (1.6-8.6); Platelet Count (auto) 255 10^3/uL (140-450); Red Blood Cells 5.01 10^6/uL (4.5-5.90); Red Cell Distribution Width 14.2 % (11.8-14.3); White Blood Cell 7.3 10^3/uL (4.4-10.8)
[2020-03-24 11:14] LABS: Albumin 4.5 g/dL (3.4-5.0); Calcium 9.6 mg/dL (8.5-10.1)
[2020-03-24 11:21] LABS: BUN/Creatinine Ratio 13.3; Bilirubin, Total 0.6 mg/dL (0.2-1.0); Total Protein 7.7 g/dL (6.4-8.2)
[2020-03-24 11:27] LABS: INR 1.07 (0.9-1.15); Partial Thromboplastin Time 27.7 sec (23.0-31.2)
[2020-03-24 11:48] LABS: Urine Bacteria FEW /hpf (None Seen); Urine Blood 1+ /uL (Negative); Urine Hyaline Cast FEW /lpf (0 - 2); Urine Specific Gravity 1.008 (1.001-1.035); Urine WBC 76 /hpf (0 - 3)
[2020-03-24] MEDS ORDERED: cefTRIAXone 1GM/50ML D5W 50 ML IV ONE (12:45)
[2020-03-24] MEDS ORDERED: SODIUM CHLORIDE 0.9% 1,000 ML IV ONE (12:45)
[2020-03-24] MEDS ORDERED: LABETALOL HCL 5 MG/ML 4ML SYRINGE IV PRN (14:30)
[2020-03-24] MEDS ORDERED: MORPHINE SULF INJ 2 MG/ML SYRINGE 1ML IV PRN ×2 (14:30)
[2020-03-24] MEDS ORDERED: NITROGLYCERIN 0.4 MG SL TAB SL PRN (14:30)
[2020-03-24] MEDS ORDERED: ACETAMINOPHEN 500 MG TAB PO PRN (14:30)
[2020-03-24] MEDS ORDERED: ONDANSETRON HCL 4 MG/2 ML VIAL IV PRN (14:30)
[2020-03-24] MEDS ORDERED: MAGNESIUM SULFATE 1GM/100ML 100 ML IV ONE (15:15)
[2020-03-24 15:19] LABS: Uric Acid 6.3 mg/dL (3.5-7.2)
--- NOTE | 2020-03-24 17:08 | NUR ---
Telemetry admit from CAROL ISBELL admitted to Telemetry unit after SBAR received. Patient oriented to Ely De La Cruz, primary RN, unit, room, bed, and unit policies regarding patient care and visiting hours. Patient now on continuous telemetry monitoring, tele box # 90, and telemetry reading on arrival to unit is sinus rhythm at 86. Patient weighed by bedscale and encouraged to call if they need something. All questions and concerns addressed, patient verbalized understanding. Patient is A & O x4, swedish speaking, no s/s of distress at this time. Janet TENORIO translated for admission assistance.
[2020-03-24] MEDS ORDERED: ALLO100T PO (17:35)
[2020-03-24] MEDS ORDERED: MULT-447 OR (17:35)
[2020-03-24] MEDS ORDERED: TAMS0.4C36 PO (17:35)
[2020-03-24] MEDS ORDERED: ASPI-498 OR (17:35)
[2020-03-24] MEDS ORDERED: FENO145T27 PO (17:35)
[2020-03-24 18:03] VITALS: BP 137/78
--- NOTE | 2020-03-24 19:10 | NUR ---
Opening Shift Note Assumed care of patient, awake and alert. No S/S of distress/SOB or pain. Patient eating dinner. Instructed on POC and to call for assist PRN, will continue to monitor for changes Q1hr and PRN.
[2020-03-24 20:00] VITALS: BP 123/74
[2020-03-24 21:00] VITALS: BP 123/74
[2020-03-24] MEDS: HYDROcodone-ACET 5/325MG TAB PO PRN (21:12)
[2020-03-24] MEDS: GABAPENTIN 100 MG CAP PO SCH (21:12)
[2020-03-24] MEDS ORDERED: TEMAZEPAM 15 MG CAP PO PRN (23:15)
[2020-03-25 05:00] VITALS: BP 93/60
[2020-03-25 06:42] LABS: Basophils # (auto) 0 10 ^3/uL (0-0.2); Basophils % (auto) 0.4 % (0.0-2.0); Eosinophils # (auto) 0.3 10 ^3/uL (0-0.8); Eosinophils % (auto) 3.9 % (0.0-7.0); Hematocrit 39.4 % (41.0-53.0); Hemoglobin 13.5 g/dL (13.5-17.5); Lymphocytes # (auto) 1.5 10 ^3/uL (0.4-5.4); Lymphocytes % (auto) 22.9 % (10.0-50.0); Mean Corpuscular Hgb Conc. 34.1 g/dL (32.0-36.0); Mean Corpuscular Volume 84.9 fL (80.0-100.0); Monocytes # (auto) 0.7 10 ^3/uL (0-1.3); Monocytes % (auto) 11.2 % (0.0-12.0); Neutrophils % (auto) 61.6 % (37.0-80.0); Platelet Count (auto) 208 10^3/uL (140-450); Red Blood Cells 4.65 10^6/uL (4.5-5.90); Red Cell Distribution Width 13.8 % (11.8-14.3); White Blood Cell 6.5 10^3/uL (4.4-10.8)
[2020-03-25 07:06] LABS: Calcium 9.1 mg/dL (8.5-10.1); Potassium 4.3 mmol/L (3.5-5.1)
[2020-03-25 07:08] LABS: BUN/Creatinine Ratio 14.6
--- NOTE | 2020-03-25 07:15 | NUR ---
Opening Shift Note: Assumed care of patient, awake and alert. No S/S of distress/SOB or pain. Bed in lowest locked position, side rails up x 2, call light within reach. Patient instructed on POC and to call for assist PRN, will continue to monitor for changes Q1hr and PRN.
--- NOTE | 2020-03-25 07:43 | NUR ---
PATIENT AMBULATED TO BATHROOM. NO DISTRESS NOTED.
[2020-03-25] MEDS: GABAPENTIN 100 MG CAP PO SCH ×2 (09:12→21:50)
[2020-03-25] MEDS: FAMOTIDINE 20 MG TAB PO SCH (09:12)
[2020-03-25] MEDS: cefTRIAXone 1GM/50ML D5W 50 ML IV SCH (09:12)
[2020-03-25 09:23] VITALS: BP 96/56
[2020-03-25 13:00] VITALS: BP 105/68
[2020-03-25 17:27] VITALS: BP 132/64
--- NOTE | 2020-03-25 18:44 | NUR ---
CLOSING NOTE: PATIENT RESTING IN BED. NO S/S OF DISTRESS. CARE ENDORSED.
--- NOTE | 2020-03-25 19:18 | NUR ---
Opening Shift Note Assumed care of patient, awake and alert. No S/S of distress/SOB or pain. Instructed on POC and to call for assist PRN, will continue to monitor for changes Q1hr and PRN.
[2020-03-25 20:00] VITALS: BP 127/74
[2020-03-25 20:55] VITALS: BP 127/74
[2020-03-25] MEDS: HYDROcodone-ACET 5/325MG TAB PO PRN (21:50)
[2020-03-26 05:23] VITALS: BP 118/74
[2020-03-26 09:00] VITALS: BP 97/64
[2020-03-26] MEDS: FAMOTIDINE 20 MG TAB PO SCH (09:00)
[2020-03-26] MEDS: cefTRIAXone 1GM/50ML D5W 50 ML IV SCH (09:00)
[2020-03-26] MEDS: GABAPENTIN 100 MG CAP PO SCH ×2 (09:00→21:15)
[2020-03-26 13:00] VITALS: BP 120/84
[2020-03-26 16:48] VITALS: BP_SYST 106; BP_SYST 82; BP_DIAS 49; BP_DIAS 53
--- NOTE | 2020-03-26 18:46 | NUR ---
CLOSING NOTE: PATIENT RESTING IN BED. NO S/S OF DISTRESS
--- NOTE | 2020-03-26 19:15 | NUR ---
Opening Shift Note Assumed care of patient, awake and alert. No S/S of distress/SOB or pain. Andrade hanging below bed, draining to gravity. Instructed on POC and to call for assist PRN, will continue to monitor for changes Q1hr and PRN.
[2020-03-26 20:00] VITALS: BP 102/61
[2020-03-26] MEDS: HYDROcodone-ACET 5/325MG TAB PO PRN (21:16)
[2020-03-26 22:00] VITALS: BP 102/61
[2020-03-27 05:00] VITALS: BP 110/74
--- NOTE | 2020-03-27 07:42 | NUR ---
Opening Shift Note Assumed care of patient from noc shift rn, awake and alert. No S/S of distress/SOB, denies pain at this time. Lupe noted below bed, draining clear to gravity. Instructed on POC and to call for assist PRN. Bed in low and locked position. Will continue to monitor for changes Q1hr and PRN.
[2020-03-27 08:00] VITALS: BP 113/73
[2020-03-27] MEDS: cefTRIAXone 1GM/50ML D5W 50 ML IV SCH (08:49)
[2020-03-27] MEDS: GABAPENTIN 100 MG CAP PO SCH (08:50)
[2020-03-27] MEDS: FAMOTIDINE 20 MG TAB PO SCH (08:50)
[2020-03-27 09:00] VITALS: BP 111/71
[2020-03-27 10:02] LABS: BUN/Creatinine Ratio 16.6; Calcium 9.2 mg/dL (8.5-10.1); Potassium 3.9 mmol/L (3.5-5.1)
--- NOTE | 2020-03-27 11:20 | NUR ---
Andrade catheter changed to leg bag per MD's order. 900ml urine emptied before change.
[2020-03-27] MEDS ORDERED: POTASSIUM CHL 20 Meq TABLET PO ONE (12:30)
[2020-03-27 13:00] VITALS: BP 97/67
[2020-03-27] MEDS ORDERED: LEVO500T21 PO (14:23)
--- NOTE | 2020-03-27 15:16 | NUR ---
Nutrition Assessment Notes Please refer to link for full assessment notes. Est Energy needs: 5647-4507 kcals (14-18 kcal/kgBW) Est Protein needs: 102-112 gms/day (1.0-1.1 gm/kgBW) Will continue to monitor and reassess prn. Addendum: 03/27/20 at [address] Amended: Links added.
--- NOTE | 2020-03-27 16:46 | NUR ---
Assessment Patient is a 70-year-old male who is alert and oriented. Patient primary language is Ecuadorean. Prior to admission patient lived home alone and functioned independently. Patient can care for his own ADL's. Per patient he has a cane for home use. Per patient he will return to his prior living arrangements post discharge and family will transport him home. Patient states he feels safe returning home. Advised patient there is a social service consult for trivedi care. Informed patient clinical information will be faxed to [facility]. Informed patient he has the right to participate in all discharge planning. Patient verbalized understanding and agreed to discharge plan. Per Carmenza with [facility] patient has been accepted and service to start within 24-48hrs upon d/c day. Addendum: 03/27/20 at 1654 by OFE GEORGE Amended: Links added.
[2020-03-27 17:21] VITALS: BP 118/81
--- NOTE | 2020-03-27 18:25 | NUR ---
SPOKE TO PATIENT'S DAUGHTER, INÉS, SHE IS DRIVING FROM [employer] AND ON HER WAY TO PICK HIM UP.
--- NOTE | 2020-03-27 19:21 | NUR ---
Opening note Assumed care of patient, patient is alert x4. no sob or distress noted. Patient is finnish speaking. Went in with day shift RN to translate to patient. Patient is aware of follow up appointment, and to be refereed to doctor Arrno the urologist. And insturcted on trivedi care. Patient verbalized understanding. Bed is locked in lowest position, side rails up x2. Patient states his ride will be here in 30min to one hour. Will continue to monitor q1hr and PRN.
--- NOTE | 2020-03-27 20:14 | NUR ---
Discharge note Patient family came to continuous pickling line pickler patient, IV removed, tele sent back to ICU. Patient wheeled downstairs by Primary RN. All belongings with patient, Patient verbalized understanding on all discharge instructions. V/S within normal limits.
== END 2020-03-27 20:00 | disposition home health service (06) | DRG 463 ==
LOC: ER 09:42 → TELE 09:43 → OBSVTOIN 09:43 → TELE-WESTW 17:30
PROVIDERS: ADMIT Nurse Practitioner Acute Care; ATTEND Internal Medicine Nephrology
DX: N30.00 Acute cystitis without hematuria (principal); N40.1 Benign prostatic hyperplasia with lower urinary tract symptoms; R33.8 Other retention of urine; E66.9 Obesity, unspecified; E11.42 Type 2 diabetes mellitus with diabetic polyneuropathy; N18.30 Chronic kidney disease, stage 3 unspecified; E78.5 Hyperlipidemia, unspecified; I12.9 Hypertensive chronic kidney disease with stage 1 through stage 4 chronic kidney disease, or unspecified chronic kidney disease; E11.22 Type 2 diabetes mellitus with diabetic chronic kidney disease; I77.810 Thoracic aortic ectasia; J98.11 Atelectasis; K40.90 Unilateral inguinal hernia, without obstruction or gangrene, not specified as recurrent; N32.89 Other specified disorders of bladder; Z79.84 Long term (current) use of oral hypoglycemic drugs; Z82.49 Family history of ischemic heart disease and other diseases of the circulatory system; Z83.3 Family history of diabetes mellitus; Z87.440 Personal history of urinary (tract) infections; N13.8 Other obstructive and reflux uropathy; M10.9 Gout, unspecified; Z68.37 Body mass index [BMI] 37.0-37.9, adult; R00.8 Other abnormalities of heart beat; N17.0 Acute kidney failure with tubular necrosis
CPT/HCPCS: 36415; 51702; 71045; 74176; 80048; 80053; 80061; 81001; 83036; 83735; 83880; 84154; 84443; 84550; 85025; 85610; 85730; 87086; 93005; 93925; 96365; G0378; J0696

== ENCOUNTER 2020-06-16 22:48 | Emergency (ER) | payer MEDICAID ==
[~2020-06-16] VITALS: Ht 172.7 cm; Wt 99.8 kg
[~2020-06-16 22:48] MED LIST changes: +ALLO100T PO; +ASPI-498 OR; +LEVO500T21 PO; -LISI-706 PO; -METF-370 PO; +MULT-447 OR; +TAMS0.4C36 PO
[2020-06-17 00:40] VITALS: BP 143/91
[2020-06-17 02:37] LABS: Urine Bacteria FEW /hpf (None Seen); Urine Blood 3+ /uL (Negative); Urine Mucus FEW (None Seen); Urine Specific Gravity 1.014 (1.001-1.035); Urine WBC 111 /hpf (0 - 3); Urine WBC Clumps PRESENT /hpf (None Seen)
== END 2020-06-17 01:10 | disposition home or self-care (01) ==
LOC: ER 22:48
DX: T83.011A Breakdown (mechanical) of indwelling urethral catheter, initial encounter (principal); T83.091A Other mechanical complication of indwelling urethral catheter, initial encounter; T83.9XXA Unspecified complication of genitourinary prosthetic device, implant and graft, initial encounter; E11.9 Type 2 diabetes mellitus without complications; I10 Essential (primary) hypertension; E78.5 Hyperlipidemia, unspecified; Z79.82 Long term (current) use of aspirin; Z79.899 Other long term (current) drug therapy; X58.XXXA Exposure to other specified factors, initial encounter; Y93.89 Activity, other specified; Y92.89 Other specified places as the place of occurrence of the external cause; Y99.8 Other external cause status
CPT/HCPCS: 81001

== ENCOUNTER 2020-09-29 15:48 | Inpatient (IN) | payer MEDICAID ==
[~2020-09-29] VITALS: Ht 165.1 cm; Wt 101.0 kg
[~2020-09-29 15:48] MED LIST changes: -LEVO500T21 PO; +LEVO500T31 PO
[2020-09-29 16:50] LABS: Basophils # (auto) 0.1 10 ^3/uL (0-0.2); Basophils % (auto) 0.6 % (0.0-2.0); Eosinophils # (auto) 0.3 10 ^3/uL (0-0.8); Eosinophils % (auto) 3.5 % (0.0-7.0); Hematocrit 44.3 % (41.0-53.0); Hemoglobin 15.2 g/dL (13.5-17.5); Lymphocytes # (auto) 2.3 10 ^3/uL (0.4-5.4); Lymphocytes % (auto) 26.4 % (10.0-50.0); Mean Corpuscular Hemoglobin 28.2 pg (28.0-32.0); Mean Corpuscular Hgb Conc. 34.3 g/dL (32.0-36.0); Mean Corpuscular Volume 82.3 fL (80.0-100.0); Monocytes # (auto) 0.7 10 ^3/uL (0-1.3); Monocytes % (auto) 8.2 % (0.0-12.0); Neutrophils # (auto) 5.3 10 ^3/uL (1.6-8.6); Neutrophils % (auto) 61.3 % (37.0-80.0); Nucleated Red Blood Cells % 0.1 %; Red Blood Cells 5.39 10^6/uL (4.5-5.90); Red Cell Distribution Width 13.9 % (11.8-14.3); White Blood Cell 8.7 10^3/uL (4.4-10.8)
[2020-09-29 17:01] LABS: Albumin 4.2 g/dL (3.4-5.0); Anion Gap 11 (5-15); Blood Urea Nitrogen 19 mg/dL (7-18); Calcium 9.5 mg/dL (8.5-10.1); Carbon Dioxide 23 mmol/L (21-32); Chloride 106 mmol/L (98-107); Glucose 78 mg/dL (74-106); Magnesium 2.2 mg/dL (1.6-2.6); Potassium 3.8 mmol/L (3.5-5.1); Sodium 140 mmol/L (136-145)
[2020-09-29 17:06] LABS: INR 1.03 (0.9-1.15); Partial Thromboplastin Time 28.7 sec (23.0-31.2)
[2020-09-29 17:07] LABS: Alanine Aminotransferase 18 U/L (16-61); Alkaline Phosphatase 64 U/L (45-117); Aspartate Aminotransferase 15 U/L (15-37); BUN/Creatinine Ratio 16.2; Bilirubin, Total 0.6 mg/dL (0.2-1.0); GFR African American 80 mL/min; GFR Non-African American 66 mL/min; Total Protein 7.8 g/dL (6.4-8.2)
[2020-09-29] MEDS ORDERED: ONDANSETRON HCL 4 MG/2 ML VIAL IV PRN (20:30)
[2020-09-29] MEDS ORDERED: NITROGLYCERIN 0.4 MG SL TAB SL PRN (20:30)
[2020-09-29] MEDS ORDERED: hydrALAZINE HCL 20 MG/ML VL IV PRN (20:30)
[2020-09-29] MEDS ORDERED: MORPHINE SULFATE INJECTION 2 MG/ML SYRG IV PRN ×2 (20:30)
[2020-09-29] MEDS ORDERED: ACETAMINOPHEN 500 MG TAB PO PRN (20:30)
[2020-09-29 20:42] LABS: Urine Bacteria NONE SEEN /hpf (None Seen); Urine Blood Negative /uL (Negative); Urine Specific Gravity 1.008 (1.001-1.035); Urine WBC 11 /hpf (0 - 3)
[2020-09-29] MEDS: METOPROLOL TARTRATE 25 MG TAB PO SCH (22:32)
[2020-09-29] MEDS: ATORVASTATIN 20 MG TAB PO SCH (22:32)
[2020-09-30] VITALS (7 sets, daily range): BP systolic 112–155; BP diastolic 59–90
[2020-09-30] MEDS ORDERED: CHOL1CAP58 PO (03:18)
[2020-09-30] MEDS ORDERED: GEMF-19 PO (03:18)
[2020-09-30] MEDS ORDERED: INFLUENZA QUAD 2020-2021 0.5 ML SYRG IM ONE (04:30)
[2020-09-30 06:11] LABS: Basophils # (auto) 0 10 ^3/uL (0-0.2); Basophils % (auto) 0.5 % (0.0-2.0); Eosinophils # (auto) 0.4 10 ^3/uL (0-0.8); Hematocrit 41.4 % (41.0-53.0); Hemoglobin 14.5 g/dL (13.5-17.5); Lymphocytes % (auto) 27.1 % (10.0-50.0); Mean Corpuscular Hemoglobin 28.6 pg (28.0-32.0); Mean Corpuscular Volume 81.7 fL (80.0-100.0); Monocytes # (auto) 0.7 10 ^3/uL (0-1.3); Monocytes % (auto) 9.8 % (0.0-12.0); Neutrophils # (auto) 4.2 10 ^3/uL (1.6-8.6); Neutrophils % (auto) 57.6 % (37.0-80.0); Nucleated Red Blood Cells % 0.3 %; Red Blood Cells 5.06 10^6/uL (4.5-5.90); Red Cell Distribution Width 13.5 % (11.8-14.3); White Blood Cell 7.2 10^3/uL (4.4-10.8)
[2020-09-30 06:25] LABS: Potassium 4.1 mmol/L (3.5-5.1)
[2020-09-30 06:29] LABS: BUN/Creatinine Ratio 14.7; Calcium 9.1 mg/dL (8.5-10.1); Uric Acid 8.8 mg/dL (3.5-7.2)
[2020-09-30] MEDS: ASPirin-EC 81 mg tab PO SCH (09:55)
[2020-09-30] MEDS: LISINOPRIL 10 MG TAB PO SCH (09:56)
[2020-09-30] MEDS: FAMOTIDINE 20 MG TAB PO SCH (09:57)
[2020-09-30] MEDS: METOPROLOL TARTRATE 25 MG TAB PO SCH ×2 (09:57→22:00)
[2020-09-30] MEDS ORDERED: cefTRIAXone 1GM/50ML D5W 50 ML IV ONE (12:15)
[2020-09-30] MEDS ORDERED: FINASTERIDE 5 MG TAB PO ONE (12:15)
[2020-09-30] MEDS: SODIUM CHLORIDE 0.9% 1,000 ML IV SCH (12:52)
[2020-09-30] MEDS: TAMSULOSIN HYDROCHLORIDE 0.4 MG CAP PO SCH (18:02)
[2020-09-30] MEDS: HYDROcodone-ACET 5/325MG TAB PO PRN (20:10)
[2020-09-30] MEDS: ATORVASTATIN 20 MG TAB PO SCH (22:10)
[2020-10-01] MEDS: SODIUM CHLORIDE 0.9% 1,000 ML IV SCH (04:04)
[2020-10-01 05:00] VITALS: BP 96/65
[2020-10-01 09:00] VITALS: BP 116/69
[2020-10-01] MEDS: FAMOTIDINE 20 MG TAB PO SCH (09:19)
[2020-10-01] MEDS: METOPROLOL TARTRATE 25 MG TAB PO SCH ×2 (09:20→21:20)
[2020-10-01] MEDS: ALLOPURINOL 100 MG TAB PO SCH (09:21)
[2020-10-01] MEDS: LISINOPRIL 10 MG TAB PO SCH (09:22)
[2020-10-01] MEDS: ASPirin-EC 81 mg tab PO SCH (09:23)
[2020-10-01] MEDS: FINASTERIDE 5 MG TAB PO SCH (09:24)
[2020-10-01] MEDS: cefTRIAXone 1GM/50ML D5W 50 ML IV SCH (09:25)
[2020-10-01] MEDS ORDERED: GABAPENTIN 100 MG CAP PO ONE (12:15)
[2020-10-01] MEDS ORDERED: DULoxetine HCL 30 MG CAP PO ONE (12:15)
[2020-10-01] MEDS: HYDROcodone-ACET 5/325MG TAB PO PRN ×2 (12:38→15:57)
[2020-10-01 13:00] VITALS: BP 112/76
[2020-10-01] MEDS: GABAPENTIN 100 MG CAP PO SCH ×2 (15:57→21:19)
[2020-10-01 17:00] VITALS: BP 150/92
[2020-10-01] MEDS: TAMSULOSIN HYDROCHLORIDE 0.4 MG CAP PO SCH (18:20)
[2020-10-01] MEDS: ATORVASTATIN 20 MG TAB PO SCH (21:19)
[2020-10-01 21:40] VITALS: BP 122/70
[2020-10-02 04:24] VITALS: BP 91/55
[2020-10-02] MEDS: GABAPENTIN 100 MG CAP PO SCH ×2 (06:44→14:17)
[2020-10-02 07:54] VITALS: BP 94/47
[2020-10-02] MEDS: cefTRIAXone 1GM/50ML D5W 50 ML IV SCH (09:30)
[2020-10-02] MEDS: ASPirin-EC 81 mg tab PO SCH (09:30)
[2020-10-02] MEDS: METOPROLOL TARTRATE 25 MG TAB PO SCH (09:31)
[2020-10-02] MEDS: FAMOTIDINE 20 MG TAB PO SCH (09:32)
[2020-10-02] MEDS: FINASTERIDE 5 MG TAB PO SCH (09:33)
[2020-10-02 09:34] VITALS: BP 98/52
[2020-10-02] MEDS: LISINOPRIL 10 MG TAB PO SCH (09:34)
[2020-10-02] MEDS: ALLOPURINOL 100 MG TAB PO SCH (09:34)
[2020-10-02] MEDS ORDERED: DULoxetine HCL 30 MG CAP PO SCH (10:00)
[2020-10-02 12:09] VITALS: BP 108/53
[2020-10-02 13:26] VITALS: BP 97/53
[2020-10-02 16:37] VITALS: BP 104/52
[2020-10-02] MEDS: TAMSULOSIN HYDROCHLORIDE 0.4 MG CAP PO SCH (17:46)
[2020-10-05] MEDS ORDERED: PNEUMOCOCCAL VACC POLYS 25 MCG/0.5 ML VIAL IM ONE (04:30)
== END 2020-10-02 18:00 | disposition home health service (06) | DRG 720 ==
LOC: ER 15:51 → TELE 20:16 → TELE-WESTW 23:38
PROVIDERS: ADMIT Nurse Practitioner Acute Care; ATTEND Internal Medicine
DX: A41.9 Sepsis, unspecified organism (principal); E11.42 Type 2 diabetes mellitus with diabetic polyneuropathy; N13.8 Other obstructive and reflux uropathy; R07.89 Other chest pain; I10 Essential (primary) hypertension; E66.9 Obesity, unspecified; M10.9 Gout, unspecified; N40.0 Benign prostatic hyperplasia without lower urinary tract symptoms; E78.5 Hyperlipidemia, unspecified; N39.0 Urinary tract infection, site not specified; N32.3 Diverticulum of bladder; Z20.822 Contact with and (suspected) exposure to COVID-19; Z68.36 Body mass index [BMI] 36.0-36.9, adult; R33.8 Other retention of urine; Z79.82 Long term (current) use of aspirin; Z79.84 Long term (current) use of oral hypoglycemic drugs; Z79.899 Other long term (current) drug therapy; N40.1 Benign prostatic hyperplasia with lower urinary tract symptoms; M48.061 Spinal stenosis, lumbar region without neurogenic claudication; K40.90 Unilateral inguinal hernia, without obstruction or gangrene, not specified as recurrent; M47.9 Spondylosis, unspecified; Z82.49 Family history of ischemic heart disease and other diseases of the circulatory system; Z83.3 Family history of diabetes mellitus; M19.90 Unspecified osteoarthritis, unspecified site
CPT/HCPCS: 36415; 71045; 72131; 74177; 80048; 80053; 81001; 83036; 83735; 83880; 84154; 84443; 84484; 84550; 85025; 85610; 85652; 85730; 86141; 87086; 87426; 93005; 93970; 96361; 96365; 97163; G0378; J0696

== ENCOUNTER 2021-01-20 12:57 | Inpatient (IN) | payer MEDICAID ==
[~2021-01-20] VITALS: Ht 165.1 cm; Wt 101.3 kg
[~2021-01-20 12:57] MED LIST changes: +CHOL1CAP58 PO; +GEMF-19 PO
[2021-01-20 14:05] LABS: Basophils # (auto) 0 10 ^3/uL (0-0.2); Basophils % (auto) 0.3 % (0.0-2.0); Eosinophils # (auto) 0.1 10 ^3/uL (0-0.8); Eosinophils % (auto) 0.4 % (0.0-7.0); Hematocrit 44.4 % (41.0-53.0); Hemoglobin 15.3 g/dL (13.5-17.5); Lymphocytes # (auto) 1.5 10 ^3/uL (0.4-5.4); Lymphocytes % (auto) 12.4 % (10.0-50.0); Mean Corpuscular Hemoglobin 28.5 pg (28.0-32.0); Mean Corpuscular Hgb Conc. 34.5 g/dL (32.0-36.0); Mean Corpuscular Volume 82.4 fL (80.0-100.0); Monocytes # (auto) 1.4 10 ^3/uL (0-1.3); Monocytes % (auto) 11.9 % (0.0-12.0); Neutrophils # (auto) 9.1 10 ^3/uL (1.6-8.6); Nucleated Red Blood Cells % 0.1 %; Red Blood Cells 5.39 10^6/uL (4.5-5.90); Red Cell Distribution Width 14.1 % (11.8-14.3); White Blood Cell 12.2 10^3/uL (4.4-10.8)
[2021-01-20 14:21] LABS: Potassium 3.6 mmol/L (3.5-5.1)
[2021-01-20 14:28] LABS: Albumin 3.9 g/dL (3.4-5.0); BUN/Creatinine Ratio 14.9; Bilirubin, Total 0.6 mg/dL (0.2-1.0); Calcium 9.2 mg/dL (8.5-10.1); Total Protein 8.2 g/dL (6.4-8.2)
[2021-01-20 23:36] LABS: Urine Bacteria FEW /hpf (None Seen); Urine Blood Negative /uL (Negative); Urine Mucus FEW (None Seen); Urine Specific Gravity 1.031 (1.001-1.035); Urine WBC 39 /hpf (0 - 3)
[2021-01-21] MEDS ORDERED: NITROGLYCERIN 0.4 MG SL TAB SL PRN (12:00)
[2021-01-21] MEDS ORDERED: DEXTROSE (50%) 50ML SYRG IV PRN (12:00)
[2021-01-21] MEDS ORDERED: MORPHINE SULFATE INJECTION 2 MG/2 ML SYRG IV PRN (12:00)
[2021-01-21] MEDS ORDERED: ONDANSETRON HCL 4 MG/2 ML VIAL IV PRN (12:00)
[2021-01-21] MEDS: cefTRIAXone 1GM/50ML D5W 50 ML IV SCH (12:53)
[2021-01-21] MEDS: MORPHINE SULFATE INJECTION 2 MG/2 ML SYRG IV PRN (12:57)
[2021-01-21 18:40] VITALS: BP 131/95
[2021-01-21] MEDS: ACCU-CHEK COMFORT CURVE STRIP VI SCH ×2 (19:00→21:52)
[2021-01-21] MEDS: InsuLIN REG 1unit/0.01ml Soln (100units/ml) SC SCH ×2 (19:00→22:00)
[2021-01-21] MEDS: TAMSULOSIN HYDROCHLORIDE 0.4 MG CAP PO SCH (20:50)
[2021-01-21] MEDS: GEMFIBROZIL 600 MG TAB PO SCH (21:52)
[2021-01-21 22:00] VITALS: BP 150/85
[2021-01-22] MEDS ORDERED: FINA5TAB4 PO ×2 (00:40)
[2021-01-22] MEDS ORDERED: DULO20CA PO (00:40)
[2021-01-22] MEDS ORDERED: CEPH-322 PO (00:40)
[2021-01-22] MEDS ORDERED: GABA100C9 PO (00:40)
[2021-01-22 05:00] VITALS: BP 140/83
[2021-01-22] MEDS: ACCU-CHEK COMFORT CURVE STRIP VI SCH ×4 (06:21→21:20)
[2021-01-22] MEDS: InsuLIN REG 1unit/0.01ml Soln (100units/ml) SC SCH ×4 (06:34→21:22)
[2021-01-22 09:00] VITALS: BP 127/85
[2021-01-22] MEDS: cefTRIAXone 1GM/50ML D5W 50 ML IV SCH (09:55)
[2021-01-22] MEDS: GEMFIBROZIL 600 MG TAB PO SCH ×2 (09:56→21:02)
[2021-01-22] MEDS: ALLOPURINOL 100 MG TAB PO SCH (09:56)
[2021-01-22] MEDS: ASPirin-EC 81 mg tab PO SCH (09:56)
[2021-01-22 12:35] VITALS: BP 122/71
[2021-01-22 15:29] LABS: Cholesterol 124 mg/dL (< 200)
[2021-01-22 15:32] LABS: HDL Cholesterol 41 mg/dL (40-59); LDL Cholesterol 73 mg/dL (< 100); Triglycerides 96 mg/dL (< 150)
[2021-01-22 17:00] VITALS: BP 143/84
[2021-01-22] MEDS: TAMSULOSIN HYDROCHLORIDE 0.4 MG CAP PO SCH (18:04)
[2021-01-22] MEDS: MORPHINE SULFATE INJECTION 2 MG/2 ML SYRG IV PRN (19:44)
[2021-01-22] MEDS: GABAPENTIN 100 MG CAP PO SCH (21:01)
[2021-01-22 22:00] VITALS: BP 153/93
[2021-01-23 05:00] VITALS: BP 117/70
[2021-01-23 06:50] LABS: Calcium 9.1 mg/dL (8.5-10.1); Potassium 4.2 mmol/L (3.5-5.1)
[2021-01-23] MEDS: InsuLIN REG 1unit/0.01ml Soln (100units/ml) SC SCH ×2 (07:00→11:30)
[2021-01-23] MEDS: ACCU-CHEK COMFORT CURVE STRIP VI SCH ×2 (07:36→11:35)
[2021-01-23 09:00] VITALS: BP 111/75
[2021-01-23] MEDS: ALLOPURINOL 100 MG TAB PO SCH (09:49)
[2021-01-23] MEDS: GABAPENTIN 100 MG CAP PO SCH (09:49)
[2021-01-23] MEDS: cefTRIAXone 1GM/50ML D5W 50 ML IV SCH (09:49)
[2021-01-23] MEDS: ASPirin-EC 81 mg tab PO SCH (09:49)
[2021-01-23] MEDS: GEMFIBROZIL 600 MG TAB PO SCH (09:49)
[2021-01-23] MEDS ORDERED: GABA100C9 PO (10:09)
[2021-01-23] MEDS ORDERED: NITR-52 PO (10:09)
[2021-01-23 13:00] VITALS: BP 45/86
== END 2021-01-23 16:00 | disposition home health service (06) | DRG 463 ==
LOC: ER 12:57 → OVERFLOW 01-21 11:57 → WEST WING 01-21 18:35
PROVIDERS: ADMIT Hospitalist; ATTEND Hospitalist
DX: N39.0 Urinary tract infection, site not specified (principal); E11.9 Type 2 diabetes mellitus without complications; R60.0 Localized edema; I10 Essential (primary) hypertension; E78.5 Hyperlipidemia, unspecified; N40.0 Benign prostatic hyperplasia without lower urinary tract symptoms; Z20.822 Contact with and (suspected) exposure to COVID-19; M10.9 Gout, unspecified; Z82.49 Family history of ischemic heart disease and other diseases of the circulatory system; Z83.3 Family history of diabetes mellitus
CPT/HCPCS: 36415; 80048; 80053; 80061; 81001; 82962; 83036; 83880; 84550; 85025; 87040; 87086; 87426; 93005; 93306; 93970; 96365; 96375; G0378; J0696; J1815; J2405

== ENCOUNTER 2021-05-10 19:10 | Inpatient (IN) | payer MEDICAID ==
[~2021-05-10] VITALS: Ht 165.1 cm; Wt 93.5 kg
[~2021-05-10 19:10] MED LIST changes: +DULO20CA PO; +FINA5TAB4 PO; +GABA100C9 PO; -LEVO500T31 PO; +NITR-52 PO
[2021-05-10 23:15] LABS: Basophils # (auto) 0 10 ^3/uL (0-0.2); Basophils % (auto) 0.1 % (0.0-2.0); Eosinophils # (auto) 0.2 10 ^3/uL (0-0.8); Eosinophils % (auto) 1.1 % (0.0-7.0); Hematocrit 39.7 % (41.0-53.0); Hemoglobin 13.3 g/dL (13.5-17.5); Lymphocytes # (auto) 1.2 10 ^3/uL (0.4-5.4); Lymphocytes % (auto) 8.2 % (10.0-50.0); Mean Corpuscular Hemoglobin 27.6 pg (28.0-32.0); Mean Corpuscular Hgb Conc. 33.6 g/dL (32.0-36.0); Mean Corpuscular Volume 82.2 fL (80.0-100.0); Monocytes # (auto) 1.4 10 ^3/uL (0-1.3); Monocytes % (auto) 9.4 % (0.0-12.0); Neutrophils # (auto) 11.7 10 ^3/uL (1.6-8.6); Neutrophils % (auto) 81.2 % (37.0-80.0); Nucleated Red Blood Cells % 0.1 %; Red Blood Cells 4.84 10^6/uL (4.5-5.90); Red Cell Distribution Width 14.6 % (11.8-14.3); White Blood Cell 14.5 10^3/uL (4.4-10.8)
[2021-05-10 23:32] LABS: Albumin 3.4 g/dL (3.4-5.0); BUN/Creatinine Ratio 37.4; Calcium 9.3 mg/dL (8.5-10.1); Potassium 5.1 mmol/L (3.5-5.1)
[2021-05-10 23:35] LABS: Bilirubin, Total 0.5 mg/dL (0.2-1.0)
[2021-05-11] MEDS ORDERED: SODIUM CHLORIDE 0.9% 1,000 ML IV ONE (00:15)
[2021-05-11 02:29] LABS: Urine Bacteria MANY /hpf (None Seen); Urine Blood Negative /uL (Negative); Urine Hyaline Cast MANY /lpf (0 - 2); Urine Specific Gravity 1.016 (1.001-1.035); Urine WBC 26 /hpf (0 - 3)
[2021-05-11] MEDS ORDERED: MORPHINE SULFATE INJECTION 2 MG/ML SYRG IV PRN (03:15)
[2021-05-11] MEDS ORDERED: ONDANSETRON HCL 4 MG/2 ML VIAL IV PRN (03:15)
[2021-05-11] MEDS ORDERED: NITROGLYCERIN 0.4 MG SL TAB SL PRN (03:15)
[2021-05-11] MEDS ORDERED: cefTRIAXone 1GM/50ML D5W 50 ML IV SCH (03:15)
[2021-05-11] MEDS ORDERED: DEXTROSE (50%) 50ML SYRG IV PRN (03:15)
[2021-05-11] MEDS: SODIUM CHLORIDE 0.9% 1,000 ML IV SCH ×2 (03:54→05:56)
[2021-05-11] MEDS: InsuLIN REG 1unit/0.01ml Soln (100units/ml) SC SCH ×4 (05:56→20:45)
[2021-05-11] MEDS ORDERED: INFLUENZA QUAD 2021-2022 0.5 ML SYRG IM ONE (06:15)
[2021-05-11] MEDS ORDERED: PNEUMOCOCCAL VACC POLYS 25 MCG/0.5 ML VIAL IM ONE (06:15)
[2021-05-11] MEDS ORDERED: LISI-285 PO (06:20)
[2021-05-11 06:29] VITALS: BP 120/68
[2021-05-11] MEDS: ACCU-CHEK COMFORT CURVE STRIP VI SCH ×4 (07:00→20:45)
[2021-05-11] MEDS ORDERED: SODIUM BICARB 50ML SYR 75 ML in SOD CHL 0.45% 1,000 ML IV SCH (11:15)
[2021-05-11] MEDS ORDERED: FUROSEMIDE 20 MG/2 ML VIAL IV ONE (11:45)
[2021-05-11 11:48] LABS: BUN/Creatinine Ratio 44.3; Calcium 8.6 mg/dL (8.5-10.1); Potassium 4.3 mmol/L (3.5-5.1)
[2021-05-11 20:24] LABS: BUN/Creatinine Ratio 47.3; Calcium 8.4 mg/dL (8.5-10.1); Potassium 4.5 mmol/L (3.5-5.1)
[2021-05-11] MEDS: ACETAMINOPHEN 325 MG TAB PO PRN (21:18)
[2021-05-11] MEDS: cefTRIAXone 1GM/50ML D5W 50 ML IV SCH (21:18)
[2021-05-11 22:00] VITALS: BP 107/66
[2021-05-12 05:00] VITALS: BP 93/50
[2021-05-12 06:02] LABS: Potassium 4.1 mmol/L (3.5-5.1)
[2021-05-12 06:05] LABS: BUN/Creatinine Ratio 52.2; Phosphorus 2.9 mg/dL (2.5-4.90)
[2021-05-12] MEDS: InsuLIN REG 1unit/0.01ml Soln (100units/ml) SC SCH ×4 (06:38→21:22)
[2021-05-12] MEDS: ACCU-CHEK COMFORT CURVE STRIP VI SCH ×4 (06:38→21:19)
[2021-05-12 09:00] VITALS: BP 123/70
[2021-05-12] MEDS: ACETAMINOPHEN 325 MG TAB PO PRN ×3 (09:03→16:02)
[2021-05-12 13:00] VITALS: BP 107/69
[2021-05-12] MEDS: DOCUSATE SOD 100 MG CAP PO PRN (16:02)
[2021-05-12 16:50] VITALS: BP 106/70
[2021-05-12] MEDS: TAMSULOSIN HYDROCHLORIDE 0.4 MG CAP PO SCH (18:12)
[2021-05-12] MEDS: cefTRIAXone 1GM/50ML D5W 50 ML IV SCH (21:23)
[2021-05-12 22:00] VITALS: BP 90/60
[2021-05-13] VITALS (7 sets, daily range): BP systolic 86–119; BP diastolic 57–75
[2021-05-13] MEDS: ACETAMINOPHEN 325 MG TAB PO PRN ×2 (02:36→20:21)
[2021-05-13] MEDS: InsuLIN REG 1unit/0.01ml Soln (100units/ml) SC SCH ×4 (05:29→21:11)
[2021-05-13] MEDS: ACCU-CHEK COMFORT CURVE STRIP VI SCH ×4 (05:29→21:06)
[2021-05-13] MEDS: DOCUSATE SOD 100 MG CAP PO PRN (09:13)
[2021-05-13 12:31] LABS: Hematocrit 38.7 % (41.0-53.0); Hemoglobin 12.8 g/dL (13.5-17.5); Mean Corpuscular Hemoglobin 27.3 pg (28.0-32.0); Mean Corpuscular Volume 82.7 fL (80.0-100.0); Red Blood Cells 4.68 10^6/uL (4.5-5.90); Red Cell Distribution Width 14.6 % (11.8-14.3); White Blood Cell 11.1 10^3/uL (4.4-10.8)
[2021-05-13 12:54] LABS: BUN/Creatinine Ratio 43.7; Calcium 9.5 mg/dL (8.5-10.1); Potassium 4.4 mmol/L (3.5-5.1)
[2021-05-13 13:00] LABS: Basophils % (manual) 0 (0.0-2.0); Blast Cells 0; Metamyelocytes % 0; Myelocytes % 0; Promyelocytes % 0; Reactive Lymphocytes 0
[2021-05-13 14:36] LABS: Band Neutrophils % (manual) 2; Eosinophils % (manual) 3 (0-7); Lymphocytes % (manual) 15 (10.0-50.0); Monocytes % (manual) 8 (0-12)
[2021-05-13] MEDS ORDERED: HYDROcodone-ACET 5/325MG TAB ONE (15:42)
[2021-05-13] MEDS: TAMSULOSIN HYDROCHLORIDE 0.4 MG CAP PO SCH (18:06)
[2021-05-13] MEDS: cefTRIAXone 1GM/50ML D5W 50 ML IV SCH (20:21)
[2021-05-14 05:00] VITALS: BP 92/60
[2021-05-14] MEDS: InsuLIN REG 1unit/0.01ml Soln (100units/ml) SC SCH ×4 (06:02→22:34)
[2021-05-14] MEDS: ACCU-CHEK COMFORT CURVE STRIP VI SCH ×4 (06:02→22:24)
[2021-05-14 09:03] VITALS: BP 109/67
[2021-05-14 13:00] VITALS: BP 115/69
[2021-05-14 17:02] VITALS: BP 106/79
[2021-05-14] MEDS: TAMSULOSIN HYDROCHLORIDE 0.4 MG CAP PO SCH (17:52)
[2021-05-14 20:15] VITALS: BP 111/71
[2021-05-14] MEDS: cefTRIAXone 1GM/50ML D5W 50 ML IV SCH (21:24)
[2021-05-14 22:00] VITALS: BP 111/71
[2021-05-15] MEDS: ACETAMINOPHEN 325 MG TAB PO PRN ×2 (04:23→17:24)
[2021-05-15 05:00] VITALS: BP 97/65
[2021-05-15] MEDS: ACCU-CHEK COMFORT CURVE STRIP VI SCH ×4 (06:32→22:12)
[2021-05-15] MEDS: InsuLIN REG 1unit/0.01ml Soln (100units/ml) SC SCH ×4 (06:33→22:50)
[2021-05-15 08:05] VITALS: BP 120/88
[2021-05-15 09:00] VITALS: BP 106/69
[2021-05-15 12:50] VITALS: BP 122/72
[2021-05-15] MEDS ORDERED: INFLUENZA QUAD 2021-2022 0.5 ML SYRG IM ONE (16:40)
[2021-05-15 17:00] VITALS: BP 112/71
[2021-05-15] MEDS ORDERED: PNEUMOCOCCAL VACC POLYS 25 MCG/0.5 ML VIAL IM ONE (17:00)
[2021-05-15] MEDS: TAMSULOSIN HYDROCHLORIDE 0.4 MG CAP PO SCH (17:23)
[2021-05-15 22:00] VITALS: BP 111/70
[2021-05-15] MEDS: cefTRIAXone 1GM/50ML D5W 50 ML IV SCH (22:10)
[2021-05-16 05:00] VITALS: BP 107/56
[2021-05-16] MEDS: ACCU-CHEK COMFORT CURVE STRIP VI SCH ×4 (06:46→22:00)
[2021-05-16] MEDS: InsuLIN REG 1unit/0.01ml Soln (100units/ml) SC SCH ×4 (06:47→22:00)
[2021-05-16 08:00] VITALS: BP 117/71
[2021-05-16 09:00] VITALS: BP 117/71
[2021-05-16 13:00] VITALS: BP 103/65
[2021-05-16 16:49] VITALS: BP 111/60
[2021-05-16] MEDS: TAMSULOSIN HYDROCHLORIDE 0.4 MG CAP PO SCH (18:24)
[2021-05-16] MEDS: ACETAMINOPHEN 325 MG TAB PO PRN (18:26)
[2021-05-16 22:00] VITALS: BP 108/67
[2021-05-16] MEDS: cefTRIAXone 1GM/50ML D5W 50 ML IV SCH (22:12)
[2021-05-17] MEDS: ACETAMINOPHEN 325 MG TAB PO PRN (01:14)
[2021-05-17 05:00] VITALS: BP 110/67
[2021-05-17] MEDS: ACCU-CHEK COMFORT CURVE STRIP VI SCH (06:32)
[2021-05-17] MEDS: InsuLIN REG 1unit/0.01ml Soln (100units/ml) SC SCH (06:32)
[2021-05-17 09:22] VITALS: BP 114/72
== END 2021-05-17 08:41 | DRG 469 ==
LOC: ER 19:12 → TELE 05-11 03:02 → ER 05-11 04:50 → TELE-CENTR 05-11 05:10
PROVIDERS: ADMIT Hospitalist; ATTEND Hospitalist
PROC: 3E02340 Introduction of Influenza Vaccine into Muscle, Percutaneous Approach (ICD-10-PCS; principal; 2021-05-11)
PROC: 3E0234Z Introduction of Serum, Toxoid and Vaccine into Muscle, Percutaneous Approach (ICD-10-PCS; 2021-05-11)
DX: N17.9 Acute kidney failure, unspecified (principal); E87.2 Acidosis; M62.82 Rhabdomyolysis; N13.8 Other obstructive and reflux uropathy; N39.0 Urinary tract infection, site not specified; N40.1 Benign prostatic hyperplasia with lower urinary tract symptoms; E87.5 Hyperkalemia; N18.32 Chronic kidney disease, stage 3b; I12.9 Hypertensive chronic kidney disease with stage 1 through stage 4 chronic kidney disease, or unspecified chronic kidney disease; F32.9 Major depressive disorder, single episode, unspecified; Z20.822 Contact with and (suspected) exposure to COVID-19; G89.29 Other chronic pain; Z23 Encounter for immunization; M10.9 Gout, unspecified; M19.90 Unspecified osteoarthritis, unspecified site; M54.50 Low back pain, unspecified; R07.89 Other chest pain; G62.9 Polyneuropathy, unspecified; E78.5 Hyperlipidemia, unspecified; Z79.899 Other long term (current) drug therapy; Z82.49 Family history of ischemic heart disease and other diseases of the circulatory system; Z83.3 Family history of diabetes mellitus
CPT/HCPCS: 36415; 70450; 71045; 74176; 76775; 80048; 80053; 81001; 82550; 82962; 83036; 83605; 83880; 84100; 84484; 84550; 85007; 85025; 85027; 85379; 87040; 87086; 87426; 90686; 93005; 96365; 97116; 97163; 97530; G0378; J0696; J1815

== ENCOUNTER 2022-11-16 21:22 | Emergency (ER) | payer MEDICARE, MEDICAID ==
[~2022-11-16] VITALS: Ht 165.1 cm; Wt 87.3 kg
[~2022-11-16 21:22] MED LIST changes: -CHOL1CAP58 PO; +GABA-1308 PO; -GABA100C9 PO; -GEMF-19 PO; +GEMF-66 PO; +LISI-285 PO; -MULT-447 OR
[2022-11-16 23:45] LABS: Basophils # (auto) 0 10 ^3/uL (0-0.2); Basophils % (auto) 0.2 % (0.0-2.0); Eosinophils # (auto) 0.3 10 ^3/uL (0-0.8); Eosinophils % (auto) 1.6 % (0.0-7.0); Hematocrit 44.3 % (41.0-53.0); Hemoglobin 15.1 g/dL (13.5-17.5); Lymphocytes # (auto) 1.6 10 ^3/uL (0.4-5.4); Lymphocytes % (auto) 10.6 % (10.0-50.0); Mean Corpuscular Hemoglobin 28.6 pg (28.0-32.0); Mean Corpuscular Volume 84.2 fL (80.0-100.0); Monocytes # (auto) 0.8 10 ^3/uL (0-1.3); Monocytes % (auto) 5.3 % (0.0-12.0); Neutrophils # (auto) 12.7 10 ^3/uL (1.6-8.6); Neutrophils % (auto) 82.3 % (37.0-80.0); Nucleated Red Blood Cells % 0.4 %; Red Blood Cells 5.26 10^6/uL (4.5-5.90); Red Cell Distribution Width 15.8 % (11.8-14.3); White Blood Cell 15.5 10^3/uL (4.4-10.8)
[2022-11-17 00:04] LABS: Albumin 4.1 g/dL (3.4-5.0); Calcium 9.2 mg/dL (8.5-10.1); Potassium 4.2 mmol/L (3.5-5.1)
[2022-11-17 00:06] LABS: BUN/Creatinine Ratio 18.5 (10.0-20.0)
[2022-11-17 00:08] LABS: Bilirubin, Total 0.6 mg/dL (0.2-1.0); Total Protein 7.6 g/dL (6.4-8.2)
[2022-11-17] MEDS ORDERED: cefTRIAXone SOD 1,000 MG VL IM ONE (05:45)
[2022-11-17 07:05] LABS: Urine Bacteria FEW /hpf (None Seen); Urine Blood 3+ /uL (Negative); Urine Mucus FEW (None Seen); Urine Specific Gravity 1.012 (1.001-1.035); Urine WBC 265 /hpf (0 - 3); Urine WBC Clumps PRESENT /hpf (None Seen)
[2022-11-17 07:25] VITALS: BP 101/62
[2022-11-17] MEDS ORDERED: BACDST PO (07:30)
== END 2022-11-17 07:43 | disposition home or self-care (01) ==
LOC: ER 21:22
DX: N39.0 Urinary tract infection, site not specified (principal); T83.098A Other mechanical complication of other urinary catheter, initial encounter; E11.9 Type 2 diabetes mellitus without complications; M10.9 Gout, unspecified; E78.5 Hyperlipidemia, unspecified; Z87.440 Personal history of urinary (tract) infections
CPT/HCPCS: 36415; 51702; 74176; 80053; 81001; 84443; 85025; 96372; 99285; J0696

== ENCOUNTER 2023-05-28 11:02 | Emergency (ER) | payer MEDICARE, MEDICAID ==
[~2023-05-28] VITALS: Ht 165.1 cm; Wt 88.3 kg
[~2023-05-28 11:02] MED LIST changes: +BACDST PO
[2023-05-28 13:53] VITALS: BP 158/93; PULSE 70; RESP 18; TEMP 98.5; O2SAT 97
[2023-05-28] MEDS ORDERED: CIPR-173 PO (14:05)
== END 2023-05-28 14:09 | disposition home or self-care (01) ==
LOC: ER 11:02
DX: T83.091A Other mechanical complication of indwelling urethral catheter, initial encounter (principal); N39.0 Urinary tract infection, site not specified; E11.9 Type 2 diabetes mellitus without complications; E78.5 Hyperlipidemia, unspecified; I10 Essential (primary) hypertension
CPT/HCPCS: 51702

== ENCOUNTER 2023-07-30 18:39 | Inpatient (IN) | payer MEDICARE, MEDICAID ==
[~2023-07-30] VITALS: Ht 165.1 cm; Wt 90.5 kg
[~2023-07-30 18:39] MED LIST changes: +CIPR-173 PO
[2023-07-30] MEDS: KETOROLAC TROMETH 60MG/2ML VIAL IM ONE (20:46)
[2023-07-30 20:59] LABS: Urine Amorphous Crystal FEW /hpf (None Seen); Urine Bacteria MANY /hpf (None Seen); Urine Blood 2+ /uL (Negative); Urine Clarity HAZY (Clear); Urine Color Colorless (Yellow); Urine Mucus FEW (None Seen); Urine Protein, UAD Negative (Negative); Urine Specific Gravity 1.013 (1.001-1.035); Urine Urobilinogen Normal (Negative); Urine WBC 148 /hpf (0 - 3); Urine pH 6.5 (5.0-8.0)
[2023-07-30 23:22] LABS: Basophils # (auto) 0 10 ^3/uL (0-0.2); Basophils % (auto) 0.5 % (0.0-2.0); Eosinophils # (auto) 0.3 10 ^3/uL (0-0.8); Hematocrit 40.9 % (41.0-53.0); Hemoglobin 13.7 g/dL (13.5-17.5); Lymphocytes # (auto) 1.9 10 ^3/uL (0.4-5.4); Lymphocytes % (auto) 27.8 % (10.0-50.0); Mean Corpuscular Hemoglobin 28.9 pg (28.0-32.0); Mean Corpuscular Hgb Conc. 33.5 g/dL (32.0-36.0); Mean Corpuscular Volume 86.2 fL (80.0-100.0); Monocytes # (auto) 0.8 10 ^3/uL (0-1.3); Monocytes % (auto) 11.8 % (0.0-12.0); Neutrophils # (auto) 3.8 10 ^3/uL (1.6-8.6); Neutrophils % (auto) 54.9 % (37.0-80.0); Nucleated Red Blood Cells % 0.1 %; Red Blood Cells 4.74 10^6/uL (4.5-5.90); Red Cell Distribution Width 14.4 % (11.8-14.3); White Blood Cell 6.9 10^3/uL (4.4-10.8)
[2023-07-30 23:38] LABS: Albumin 4.1 g/dL (3.2-4.8); Alkaline Phosphatase 52 U/L (46-116); Anion Gap 8 (5-15); Aspartate Aminotransferase 9 U/L (13-40); BUN/Creatinine Ratio 16.8 (10.0-20.0); Bilirubin, Total 0.5 mg/dL (0.2-1.0); Blood Urea Nitrogen 21 mg/dL (9-23); Calcium 9.3 mg/dL (8.5-10.1); Carbon Dioxide 24 mmol/L (20-30); Chloride 110 mmol/L (98-107); Glucose 84 mg/dL (74-106); Potassium 4.3 mmol/L (3.5-5.1); Sodium 142 mmol/L (136-145); Total Protein 6.7 g/dL (5.7-8.2)
[2023-07-30 23:50] LABS: Alanine Aminotransferase 9 U/L (7-40)
[2023-07-31] VITALS (7 sets, daily range): BP systolic 105–147; BP diastolic 74–83; PULSE 55–75; RESP 14–20; TEMP 97.9–98.1; O2SAT 17–96
[2023-07-31] MEDS ORDERED: DEXTROSE (50%) 50ML SYRG IV PRN (01:00)
[2023-07-31] MEDS ORDERED: ONDANSETRON HCL 4 MG/2 ML VIAL IV PRN (01:00)
[2023-07-31] MEDS ORDERED: ACETAMINOPHEN 325 MG TAB PO PRN (01:00)
[2023-07-31] MEDS ORDERED: DOCUSATE SOD 100 MG CAP PO PRN (01:00)
[2023-07-31] MEDS ORDERED: MORPHINE SULFATE INJ 2 MG/ml SYRG IV PRN (01:30)
[2023-07-31] MEDS ORDERED: NITROGLYCERIN 0.4 MG SL TAB SL PRN (01:30)
[2023-07-31] MEDS: levoFLOXacin 500MG 100 ML IV ONE (02:09)
[2023-07-31] MEDS: ACCU-CHEK COMFORT CURVE STRIP VI SCH (05:59)
[2023-07-31] MEDS: InsuLIN REG 1unit/0.01ml Soln (100units/ml) SC SCH (05:59)
[2023-07-31] MEDS: SODIUM CHLOR 0.9% PF (SALINE LOCK) 10ML VIAL/SYR IV SCH (06:00)
[2023-07-31 06:37] LABS: Basophils # (auto) 0 10 ^3/uL (0-0.2); Basophils % (auto) 0.6 % (0.0-2.0); Eosinophils # (auto) 0.3 10 ^3/uL (0-0.8); Eosinophils % (auto) 5.2 % (0.0-7.0); Hematocrit 41.5 % (41.0-53.0); Hemoglobin 13.9 g/dL (13.5-17.5); Lymphocytes # (auto) 1.7 10 ^3/uL (0.4-5.4); Lymphocytes % (auto) 32.2 % (10.0-50.0); Mean Corpuscular Hemoglobin 29.3 pg (28.0-32.0); Mean Corpuscular Hgb Conc. 33.4 g/dL (32.0-36.0); Mean Corpuscular Volume 87.8 fL (80.0-100.0); Monocytes # (auto) 0.7 10 ^3/uL (0-1.3); Neutrophils # (auto) 2.7 10 ^3/uL (1.6-8.6); Nucleated Red Blood Cells % 0.1 %; Red Blood Cells 4.73 10^6/uL (4.5-5.90); Red Cell Distribution Width 14.6 % (11.8-14.3); White Blood Cell 5.4 10^3/uL (4.4-10.8)
[2023-07-31 06:44] LABS: Albumin 4.1 g/dL (3.2-4.8); Alkaline Phosphatase 49 U/L (46-116); Anion Gap 8 (5-15); Aspartate Aminotransferase 12 U/L (13-40); BUN/Creatinine Ratio 15.9 (10.0-20.0); Blood Urea Nitrogen 21 mg/dL (9-23); Calcium 8.9 mg/dL (8.7-10.4); Carbon Dioxide 23 mmol/L (20-30); Chloride 110 mmol/L (98-107); Glucose 79 mg/dL (74-106); Potassium 4.4 mmol/L (3.5-5.1); Sodium 141 mmol/L (136-145)
[2023-07-31 06:45] LABS: Bilirubin, Total 0.7 mg/dL (0.2-1.0); Total Protein 6.6 g/dL (5.7-8.2)
[2023-07-31 07:26] LABS: Alanine Aminotransferase < 9 U/L (7-40)
[2023-07-31] MEDS: ASPirin 81 mg TAB PO SCH (09:27)
[2023-07-31] MEDS: TAMSULOSIN HYDROCHLORIDE 0.4 MG CAP PO SCH (17:27)
[2023-07-31] MEDS: levoFLOXacin 500MG 100 ML IV SCH (21:45)
[2023-08-01 04:43] VITALS: BP 113/75; PULSE 69; RESP 16; TEMP 97.4; O2SAT 100
[2023-08-01 06:18] LABS: Basophils # (auto) 0 10 ^3/uL (0-0.2); Basophils % (auto) 0.6 % (0.0-2.0); Eosinophils # (auto) 0.2 10 ^3/uL (0-0.8); Eosinophils % (auto) 5.1 % (0.0-7.0); Hematocrit 38.6 % (41.0-53.0); Hemoglobin 13.3 g/dL (13.5-17.5); Lymphocytes # (auto) 1.8 10 ^3/uL (0.4-5.4); Lymphocytes % (auto) 38.1 % (10.0-50.0); Mean Corpuscular Hemoglobin 29.4 pg (28.0-32.0); Mean Corpuscular Hgb Conc. 34.4 g/dL (32.0-36.0); Mean Corpuscular Volume 85.4 fL (80.0-100.0); Monocytes # (auto) 0.5 10 ^3/uL (0-1.3); Monocytes % (auto) 11.1 % (0.0-12.0); Neutrophils # (auto) 2.2 10 ^3/uL (1.6-8.6); Neutrophils % (auto) 45.1 % (37.0-80.0); Red Blood Cells 4.52 10^6/uL (4.5-5.90); White Blood Cell 4.8 10^3/uL (4.4-10.8)
[2023-08-01 06:27] LABS: Albumin 3.9 g/dL (3.2-4.8); Alkaline Phosphatase 46 U/L (46-116); Anion Gap 7 (5-15); Aspartate Aminotransferase 12 U/L (13-40); BUN/Creatinine Ratio 18.4 (10.0-20.0); Bilirubin, Total 0.5 mg/dL (0.2-1.0); Blood Urea Nitrogen 25 mg/dL (9-23); Calcium 9.6 mg/dL (8.7-10.4); Carbon Dioxide 24 mmol/L (20-30); Chloride 109 mmol/L (98-107); Glucose 82 mg/dL (74-106); Potassium 4.2 mmol/L (3.5-5.1); Sodium 140 mmol/L (136-145); Total Protein 6.3 g/dL (5.7-8.2)
[2023-08-01 06:37] LABS: Alanine Aminotransferase < 9 U/L (7-40)
[2023-08-01 08:00] VITALS: BP 114/66; PULSE 68; RESP 21; TEMP 97.4; O2SAT 91
[2023-08-01] MEDS: HYDROcodone-ACET 5/325MG TAB PO PRN (11:39)
[2023-08-01 12:00] VITALS: BP 110/77; PULSE 67; RESP 18; TEMP 97.8; O2SAT 93
[2023-08-01 16:00] VITALS: BP 108/67; PULSE 58; RESP 17; TEMP 97.5; O2SAT 94
[2023-08-01 22:00] VITALS: BP 109/75; PULSE 83; RESP 18; TEMP 97.8; O2SAT 95
[2023-08-02 05:00] VITALS: BP 108/84; PULSE 64; RESP 15; TEMP 97.6; O2SAT 97
[2023-08-02 10:33] VITALS: BP 113/69; PULSE 75; RESP 18; TEMP 98.2; O2SAT 94
[2023-08-02 10:36] VITALS: BP 113/69; PULSE 75; RESP 18; TEMP 98.2; O2SAT 94
[2023-08-02] MEDS: cefTRIAXone 1GM/50ML D5W 50 ML IV ONE (11:55)
[2023-08-02] MEDS: levoFLOXacin 500MG 100 ML IV ONE (15:00)
[2023-08-02 16:52] VITALS: BP 102/58; PULSE 54; RESP 18; TEMP 98.5; O2SAT 94
[2023-08-02 22:00] VITALS: BP 112/64; PULSE 89; RESP 18; TEMP 98.1; O2SAT 95
[2023-08-02] MEDS: GABAPENTIN 100 MG CAP PO SCH (22:04)
[2023-08-03 01:06] LABS: Prostate Specific Antigen 4.4 ng/mL (0.0-4.0)
[2023-08-03 05:00] VITALS: BP 97/55; PULSE 72; RESP 18; TEMP 98; O2SAT 95
[2023-08-03 07:01] LABS: Anion Gap 6 (5-15); Carbon Dioxide 24 mmol/L (20-30); Chloride 109 mmol/L (98-107); Sodium 139 mmol/L (136-145)
[2023-08-03 07:02] LABS: Calcium 9.2 mg/dL (8.5-10.1)
[2023-08-03 07:07] LABS: BUN/Creatinine Ratio 15.8 (10.0-20.0); Blood Urea Nitrogen 21 mg/dL (9-23); Glucose 85 mg/dL (74-106)
[2023-08-03 08:52] VITALS: BP 99/56; PULSE 65; RESP 20; TEMP 98.2; O2SAT 93
[2023-08-03] MEDS ORDERED: cefTRIAXone 1GM/50ML D5W 50 ML IV SCH (09:00)
[2023-08-03] MEDS: ALLOPURINOL 100 MG TAB PO SCH (10:00)
[2023-08-03] MEDS: DULoxetine HCL 30 MG CAP PO SCH (10:09)
[2023-08-03] MEDS ORDERED: LEVO500T91 PO (12:33)
[2023-08-03 12:52] VITALS: BP 116/65; PULSE 63; RESP 20; TEMP 97.9; O2SAT 95
[2023-08-03] MEDS ORDERED: levoFLOXacin 500MG 100 ML IV SCH (15:00)
[2023-08-04 08:06] LABS: PSA Free 0.63 ng/mL; Prostate Specific Antigen 3.3 ng/mL (0.0-4.0)
== END 2023-08-03 17:00 | disposition home or self-care (01) | DRG 466 ==
LOC: ER 18:39 → OVERFLOW 07-31 01:26 → WEST WING 07-31 01:42
PROVIDERS: ADMIT Nurse Practitioner Family; ATTEND Internal Medicine
DX: T83.511A Infection and inflammatory reaction due to indwelling urethral catheter, initial encounter (principal); N30.01 Acute cystitis with hematuria; E11.22 Type 2 diabetes mellitus with diabetic chronic kidney disease; E11.42 Type 2 diabetes mellitus with diabetic polyneuropathy; B96.89 Other specified bacterial agents as the cause of diseases classified elsewhere; E66.9 Obesity, unspecified; T83.091A Other mechanical complication of indwelling urethral catheter, initial encounter; K40.90 Unilateral inguinal hernia, without obstruction or gangrene, not specified as recurrent; M10.9 Gout, unspecified; Z68.33 Body mass index [BMI] 33.0-33.9, adult; N18.30 Chronic kidney disease, stage 3 unspecified; N43.3 Hydrocele, unspecified; I12.9 Hypertensive chronic kidney disease with stage 1 through stage 4 chronic kidney disease, or unspecified chronic kidney disease; E78.5 Hyperlipidemia, unspecified; N40.0 Benign prostatic hyperplasia without lower urinary tract symptoms; N31.9 Neuromuscular dysfunction of bladder, unspecified; Y84.6 Urinary catheterization as the cause of abnormal reaction of the patient, or of later complication, without mention of misadventure at the time of the procedure; Z82.49 Family history of ischemic heart disease and other diseases of the circulatory system
CPT/HCPCS: 36415; 74176; 80048; 80053; 81001; 82962; 83605; 84154; 85025; 87086; 87088; 87186; G0378; J1885; J1956

== ENCOUNTER → 2023-11-24 | Outpatient (CLI) | payer MEDICARE, MEDICAID ==
[~2023-11-24] MED LIST changes: -ASPI-498 OR; -BACDST PO; -CIPR-173 PO; +LEVO500T91 PO; -NITR-52 PO
[2023-11-24 12:48] LABS: Basophils # (auto) 0 10 ^3/uL (0-0.2); Basophils % (auto) 0.5 % (0.0-2.0); Eosinophils # (auto) 0.3 10 ^3/uL (0-0.8); Eosinophils % (auto) 4.4 % (0.0-7.0); Hematocrit 44.3 % (41.0-53.0); Hemoglobin 15.2 g/dL (13.5-17.5); Lymphocytes # (auto) 1.6 10 ^3/uL (0.4-5.4); Lymphocytes % (auto) 24.6 % (10.0-50.0); Mean Corpuscular Hgb Conc. 34.3 g/dL (32.0-36.0); Mean Corpuscular Volume 84.5 fL (80.0-100.0); Monocytes # (auto) 0.5 10 ^3/uL (0-1.3); Monocytes % (auto) 7.7 % (0.0-12.0); Neutrophils # (auto) 4.1 10 ^3/uL (1.6-8.6); Neutrophils % (auto) 62.8 % (37.0-80.0); Nucleated Red Blood Cells % 0.4 %; Red Blood Cells 5.24 10^6/uL (4.5-5.90); Red Cell Distribution Width 14.3 % (11.8-14.3); White Blood Cell 6.5 10^3/uL (4.4-10.8)
[2023-11-24 13:04] LABS: Creatinine, Urine 41.04 mg/dL (30.0-125.0); Prostate Specific Antigen 3.63 ng/mL (0.0-4.0)
[2023-11-24 13:06] LABS: Alanine Aminotransferase 13 U/L (7-40); Albumin 4.4 g/dL (3.2-4.8); Alkaline Phosphatase 53 U/L (46-116); Anion Gap 8 (5-15); Aspartate Aminotransferase 10 U/L (13-40); BUN/Creatinine Ratio 13.2 (10.0-20.0); Blood Urea Nitrogen 16 mg/dL (9-23); Calcium 9.6 mg/dL (8.5-10.1); Carbon Dioxide 23 mmol/L (20-30); Chloride 106 mmol/L (98-107); Cholesterol 158 mg/dL (< 200); Glucose 92 mg/dL (74-106); HDL Cholesterol 36 mg/dL (40-59); LDL Cholesterol 116 mg/dL (< 100); Sodium 137 mmol/L (136-145); Triglycerides 119 mg/dL (< 150)
[2023-11-24 13:07] LABS: Bilirubin, Total 0.6 mg/dL (0.2-1.0); Free T4 (Free Thyroxine) 1.06 ng/dL (0.89-1.76); Total Protein 6.9 g/dL (5.7-8.2)
== END | disposition home or self-care (01) ==
LOC: LAB 11:54
PROVIDERS: ATTEND Nurse Practitioner Family
DX: I12.9 Hypertensive chronic kidney disease with stage 1 through stage 4 chronic kidney disease, or unspecified chronic kidney disease (principal); E11.22 Type 2 diabetes mellitus with diabetic chronic kidney disease; N18.9 Chronic kidney disease, unspecified; N40.1 Benign prostatic hyperplasia with lower urinary tract symptoms
CPT/HCPCS: 36415; 80053; 80061; 82043; 82570; 83036; 84153; 84439; 84443; 85025

== ENCOUNTER 2024-11-25 08:06 | Inpatient (IN) | payer MEDICARE, MEDICAID ==
[~2024-11-25] VITALS: Ht 172.7 cm; Wt 77.5 kg
[2024-11-25] VITALS (37 sets, daily range): BP systolic 84–133; BP diastolic 47–87; PULSE 52–94; RESP 10–21; TEMP 97.1–97.7; O2SAT 89–100
[~2024-11-25 08:06] MED LIST changes: +ACET-1881 PO; +ALBU0.084 NEB; +ASCO500T11 PO; +HYDR-4902 PO; +HYDR12.59 PO; +INSREG3 SC; +LACT1CAP14 PO; +LEVO750T40 PO; -LISI-285 PO; +LISI20TA56 PO; +MOMLQ PO; +NALO4SPR3; +NITR0.4S29 SL; -TAMS0.4C36 PO; +TAMS0.4C39 PO; +VITA400T4 PO
--- NOTE | 2024-11-25 08:26 | ED.PDOC ---
History of Present Illness HPI Comments 74-year-old male with PMHx HTN, CVA brought in by EMS presents with a chief complaint of generalized weakness and SOB. Per EMS, patient is coming from [facility] and staff called EMS because apparently patient was sating at 70% on room air. However, EMS reports that patient has been sating at 95% on room air the entire time they've been on scene. Patient has no stated complaints, no pain at this time, or SOB. Patient has dysphagia from a previous stroke. Chief Complaint: General Weakness Time Seen by MD: 08:08 Primary Care Provider: unknown Reviewed Notes: Medications, Allergies Allergies: Coded Allergies: NO KNOWN ALLERGIES (Unverified , 01/20/21) Home Meds Active Scripts Levofloxacin Hemihydrate (LEVAQUIN 500 MG) 500 Mg Tab, 500 MG PO DAILY for 7 Days, #7 TAB Prov:BRANDIN TORRES MD 08/03/23 Gabapentin (Gabapentin) 100 Mg Cap, 100 MG PO TID, #90 CAP Prov:ANIYA SANTILLAN MD 01/23/21 Reported Medications Insulin Regular (Human) (Humulin R) 100 Unit/Ml Inj, 2 UNIT SC ACHS for ELEVATED BLOOD SUGAR, INJ 08/02/24 Magnesium Hydroxide (MILK OF MAGNESIA ORAL SUSPENSION) 30 Ml Ss, 30 ML PO DAILY for BOWEL MANAGEMENT, ML 08/02/24 Naloxone HCl (Naloxone Hydrochloride) 4 Mg/0.1 Ml Spr, 4 MG NA for OPIOD OVERDOSE, SPRAY 08/02/24 Nitroglycerin (NTROSTAT SUBLINGUAL) 0.4 Mg Sl, 0.4 MG SL Q5MIN PRN for CHEST PAIN, TAB *MAY REPEAT EVERY 5 MINUTES X 3 TOTAL IF NO RELIEF, INITIATE ANALGESIC THERAPY. NOTIFY PHYSICIAN *Do not crush. 08/02/24 Lactobacillus (Probiotic Acidophilus) 1 Cap Cap, 1 CAP PO BID, CAP 08/02/24 Alpha Tocopheryl Acid Succinat (VITAMIN E) 400 Unit Tab, 400 UNIT PO DAILY, TAB 08/02/24 Ascorbic Acid (VITAMIN C TABLET) 500 Mg Tb, 1 TAB PO BID, #60 TAB 08/02/24 Hydrocodone-Acetaminophen (Hydrocodone Bitartrate/AC 5-325 mg) 1 Tab Tab, 1 TAB PO Q6HR for PAIN 4-10, TAB 08/02/24 Lisinopril (Lisinopril) 20 Mg Tab, 20 MG PO DAILY for 30 Days, MG 08/02/24 Albuterol Sulfate (Albuterol Sulfate) 0.083 % Neb, 1 VIAL NEB Q6H, #50 VIAL 08/02/24 Acetaminophen (Acetaminophen) 325 Mg Tab, 650 MG PO Q6HPRN for MILD PAIN for 30 Days, MG 0 Refills 08/02/24 Hydrochlorothiazide (Hydrochlorothiazide) 12.5 Mg Cap, 12.5 MG PO Q6HPRN PRN for SBP>150 for 30 Days, MG 08/02/24 Levofloxacin Hemihydrate (LEVOFLOXACIN) 750 Mg Tab, 1 TAB PO DAILY for 32 Days, #32 TAB 08/02/24 Gemfibrozil (Gemfibrozil) 600 Mg Tab, 600 MG PO AC for 30 Days 08/02/24 Gabapentin (Gabapentin) 100 Mg Cap, 1 CAP PO DAILY, #90 CAP 2 Refills 08/02/24 Duloxetine Hcl (Cymbalta) 20 Mg Cap, 1 CAP PO DAILY, #30 CAP 2 Refills 08/02/24 Finasteride (Finasteride) 5 Mg Tab, 5 MG PO DAILY@BREAKFAST 01/22/21 Allopurinol (Allopurinol) 100 Mg Tab, 100 MG PO DAILY for 30 Days, MG 03/24/20 Tamsulosin Hcl (Tamsulosin Hcl) 0.4 Mg Cap, 0.4 MG PO QPM for 30 Days, MG 03/24/20 Information Source: Patient, Emergency Med Personnel Mode of Arrival: EMS Severity: Moderate Timing: Hours Duration: Since onset Prehospital treatment: Senior C Developer, Oxygen Past Medical History PAST MEDICAL HISTORY: DM, Gout, High Lipids, HTN, UTI'S Surgical History: Denies all surgeries Family History Family History: Reviewed,noncontributory to illness, Family hx of DM, Family hx of HTN Social History Smoker: Non-Smoker Alcohol: Denies ETOH Use Drugs: Denies Drug Use Lives In: Home Constitutional: reports: weakness; denies: chills, diaphoresis, fatigue, fever, malaise, sweats, others EENTM: denies: blurred vision, double vision, ear bleeding, ear discharge, ear drainage, ear pain, ear ringing, eye pain, eye redness, hearing loss, mouth pain, mouth swelling, nasal discharge, nose bleeding, nose congestion, nose pain, photophobia, tearing, throat pain, throat swelling, voice changes, others Respiratory: denies: cough, hemoptysis, orthopnea, SOB at rest, shortness of breath, SOB with excertion, stridor, wheezing, others Cardiovascular: denies: chest pain, dizzy spells, diaphoresis, Dyspnea on exertion, edema, irregular heart beat, left arm pain, lightheadedness, palpitations, PND, syncope, others Gastrointestinal: denies: abdomen distended, abdominal pain, blood streaked bowels, constipated, diarrhea, dysphagia, difficulty swallowing, hematemesis, melena, nausea, poor appetite, poor fluid intake, rectal bleeding, rectal pain, vomiting, others Genitourinary: denies: burning, dysuria, flank pain, frequency, hematuria, incontinence, penile discharge, penile sore, pain, testicle pain, testicle swelling, urgency, others Neurological: denies: dizziness, fainting, headache, left sided numbness, left sided weakness, numbness, paresthesia, pre-existing deficit, right sided numbness, right sided weakness, seizure, speech problems, tingling, tremors, weakness, others Musculoskeletal: denies: back pain, gout, joint pain, joint swelling, muscle pain, muscle stiffness, neck pain, others Integumetry: denies: bruises, change in color, change in hair/nails, dryness, laceration, lesions, lumps, rash, wounds, others Allergic/Immunocompromised: denies: Difficulty Healing, Frequent Infections, Hives, Itching, others Hematologic/Lymphatic: denies: anemia, blood clots, easy bleeding, easy bruising, swollen glands, others Endocrine: denies: excessive hunger, excessive sweating, excessive thirst, excessive urination, flushing, intolerance to cold, intolerance to heat, unexplained weight gain, unexplained weight loss, others Psychiatric: denies: anxiety, bipolar disorder, depression, hopeless, panic disorder, schizophrenia, sleepless, suicidal, others All Other Systems: Reviewed and Negative Physical Exam General Appearance: Moderate Distress, Normal HEENT: Normal ENT Inspection, Pharynx Normal, TMs Normal Neck: Full Range of Motion, Non-Tender, Normal, Normal Inspection Respiratory: Chest Non-Tender, Lungs Clear, No Accessory Muscle Use, No Respiratory Distress, Normal Breath Sounds Cardiovascular: No Edema, No JVD, No Murmur, No Gallop, Normal Peripheral Pulses, Regular Rate/Rhythm Breast Exam: Deferred Gastrointestinal: No Organomegaly, Non Tender, No Pulsatile Mass, Normal Bowel Sounds, Soft Genitalia: Deferred Pelvic: Deferred Rectal: Deferred Extremities: No calf tenderness, Normal capillary refill, Normal inspection, Normal range of motion, Non-tender, No pedal edema Musculoskeletal : Apperance: Normal Neurologic: Alert, dividing machine operator II-XII nml as Tested, No Motor Deficits, Normal Affect, Normal Mood, No Sensory Deficits Cerebellar Function: NOT DONE Reflexes: NOT DONE Skin: Dry, Normal Color, Warm Peripheral Pulses: 3+ Radial (R), 3+ Radial (L) Lymphatic: No Adenopathy Was a procedure done? Was a procedure done?: No EKG EKG : Pulse Rate (adult): 93 [place]: Normal Cardiac Rhythm: NSR Block: RBBB Hypertrophy: None ST: Normal Differential Dx Considerations may include: Anemia Electrolyte imbalance X-Ray, Labs, Meds, VS Vital Signs Date Time Temp Pulse Resp B/P (MAP) Pulse Ox O2 Delivery O2 Flow Rate FiO2 11/25/24 10:47 75/45 11/25/24 08:40 94 17 98 Simple Mask* 6 50 11/25/24 08:30 97.6 94 17 91/62 (72) 98 97.6 11/25/24 08:28 93 11/25/24 08:24 98.9 88 18 134/82 (99) 95 98.9 Lab Test 11/25/24 09:10 11/25/24 08:47 Range/Units Urine Color Yellow Yellow Urine Clarity Cloudy H Clear Urine pH 5.5 5.0-9.0 Urine Specific [place] 1.015 1.001-1.035 Urine Protein 2+ H Negative Urine Ketones Negative Negative Urine Blood 3+ H Negative /uL Urine Nitrite Negative Negative Urine Bilirubin Negative Negative Urine Urobilinogen Normal Negative mg/dL Urine Leukocyte Esterase 3+ Negative /uL Urine RBC 482 0 - 3 /hpf Urine WBC Clumps Present None Seen /hpf Urine Microscopic WBC 2939 H 0-3 /HPF Urine Squamous Epithelial Cells None seen <5 /hpf Urine Bacteria Many H None Seen /hpf Urine Mucus Few None Seen Urine Glucose Normal Normal mg/dL White Blood Count 17.6 H 4.4-10.8 10^3/uL Red Blood Count 4.74 4.5-5.90 10^6/uL Hemoglobin 11.4 L 13.5-17.5 g/dL Hematocrit 35.4 L 41.0-53.0 % Mean Corpuscular Volume 74.6 L 80.0-100.0 fL Mean Corpuscular Hemoglobin 24.1 L 28.0-32.0 pg Mean Corpuscular Hemoglobin Concent 32.4 32.0-36.0 g/dL Red Cell Distribution Width 17.2 H 11.8-14.3 % Platelet Count 345 140-450 10^3/uL Mean Platelet Volume 7.3 6.9-10.8 fL Neutrophils (%) (Auto) 79.9 37.0-80.0 % Lymphocytes (%) (Auto) 10.2 10.0-50.0 % Monocytes (%) (Auto) 9.5 0.0-12.0 % Eosinophils (%) (Auto) 0.1 0.0-7.0 % Basophils (%) (Auto) 0.3 0.0-2.0 % Neutrophils # (Auto) 14.0 H 1.6-8.6 10 ^3/uL Lymphocytes # (Auto) 1.8 0.4-5.4 10 ^3/uL Monocytes # (Auto) 1.7 H 0-1.3 10 ^3/uL Eosinophils # (Auto) 0 0-0.8 10 ^3/uL Basophils # (Auto) 0.1 0-0.2 10 ^3/uL Nucleated Red Blood Cells 0.0 % Sodium Level 142 136-145 mmol/L Potassium Level 3.6 3.5-5.1 mmol/L Chloride Level 105 98-107 mmol/L Carbon Dioxide Level 25 20-31 mmol/L Anion Gap 12 5-15 Blood Urea Nitrogen 29 H 9-23 mg/dL Creatinine 1.24 0.700-1.30 mg/dL Glomerular Filtration Rate Calc 62 >90 mL/min BUN/Creatinine Ratio 23.4 H 10.0-20.0 Serum Glucose 132 H 74-106 mg/dL Calcium Level 9.8 8.7-10.4 mg/dL Troponin I High Sensitivity 11 </=54 ng/L Current Medications Medications (Trade) Dose Ordered Sig/Shlomo Route Start Time Stop Time Status Last Admin Sodium Chloride 1,000 ml @ 1,000 mls/hr Q1H ONCE IV 11/25/24 09:30 11/25/24 10:29 DC 11/25/24 09:46 Acetaminophen/ Hydrocodone Bitart ([place] 5/325MG Tab) 1 tab ONCE ONCE PO 11/25/24 09:30 11/25/24 09:31 DC 11/25/24 09:47 Norepinephrine Bitartrate 250 ml @ 3.75 mls/hr Q24H IV 11/25/24 10:45 11/25/24 10:47 He is alert. Patient came in because of shortness a breath in his jail. [employer] did not have history. Was on oxygen prior to coming to the ER. His saturation was low in the field. Cardiac marker within normal limits. Blood pressure low. Was given fluids. Continues to be low. Started on Levophed. Possible sepsis. Blood cultures. Lactic acid. Was given Rocephin. Was given azithromycin. EKG reviewed does not show any acute changes. Explained to the patient. Continue to monitor. PATIENT: CAROL ISBELLACCT: [id number] UNIT: [id number] : 1950 LOC: ER ROOM / BED: / AGE / SEX: 74 / M ADM STATUS: REG ER SERVICE 9 ORDERING PHYSICIAN: PATRICIA NG MD PROCEDURE(s): CXRP - CHEST PORTABLE REASON: sob ORDER NUMBER(s): [id number], ACCESSION NUMBER(s): [id number] CHEST RADIOGRAPH Indication: sob Technique: Single frontal view of the chest was obtained COMPARISON: XY CHEST PORTABLE on DOS: 08/14/24, XY CHEST XRAY 1 VIEW on DOS: 08/12/24, XY CHEST XRAY 1 VIEW on DOS: 08/11/24, XY CHEST XRAY 1 VIEW on DOS: 08/10/24, XY CHEST XRAY 1 VIEW on DOS: 08/09/24 FINDINGS: Lines and Tubes: None Lungs: Moderate right basilar pulmonary airspace disease and possible small pleural effusion. There is elevation of the right hemidiaphragm. The remaining lung zones are clear. No pneumothorax. Cardiomediastinal contours: Unremarkable Bones: Unremarkable IMPRESSION: 1. Right basilar pulmonary airspace disease and probable small bilateral pleural effusion. Elevated right hemidiaphragm. ATED BY: JOSE JOVEL MD DICTATED DATE/TIME: 11/25/2450 SIGNED BY: JOSE JOVEL MD SIGNED DATE/TIME: 11/25/2450 Time of 1ST Reevaluation: 08:38 Reevaluation 1ST: Unchanged Patient Education/Counseling: Diagnosis, Treatment, Need For Follow Up Family Education/Counseling: No Family Present SEPSIS Sepsis Screen Physician Orders Chest Portable (11/25/24 08:20) Urine Bacterial Culture (11/25/24 08:20) Norepinephrine 8 Mg/250ml Kit (Levophed) (11/25/24 10:45) Blood Culture (11/25/24 11:05) Lactic Acid W/ Reflex Order (11/25/24 11:05) Ceftriaxone 1gm/50ml D5w (Rocephin) (11/25/24 11:15) Azithromycin 500mg/ 250ml (Zithromax 50 (11/25/24 11:15) Sodium Chloride 0.9% (11/25/24 11:15) Sodium Chloride 0.9% (11/25/24 11:15) Vital Signs Date Time Temp Pulse Resp B/P (MAP) Pulse Ox O2 Delivery O2 Flow Rate FiO2 11/25/24 10:47 75/45 11/25/24 08:40 94 17 98 Simple Mask* 6 50 11/25/24 08:30 97.6 94 17 91/62 (72) 98 97.6 11/25/24 08:28 93 11/25/24 08:24 98.9 88 18 134/82 (99) 95 98.9 Laboratory Tests Test 11/25/24 08:47 White Blood Count 17.6 10^3/uL (4.4-10.8) H Medications Medications Dose Ordered Sig/Shlomo Route Start Time Stop Time Status Last Admin Dose Admin Acetaminophen/ Hydrocodone Bitart 1 tab ONCE ONCE PO 11/25/24 09:30 11/25/24 09:31 DC 11/25/24 09:47 Norepinephrine Bitartrate 250 ml @ 3.75 mls/hr Q24H IV 11/25/24 10:45 11/25/24 10:47 Sodium Chloride 1,000 ml @ 1,000 mls/hr Q1H ONCE IV 11/25/24 09:30 11/25/24 10:29 DC 11/25/24 09:46 Departure 1 Departure Time of Disposition: 11:07 Impression: Primary Impression: Sepsis, unspecified organism Qualified Codes: A41.9 - Sepsis, unspecified organism Additional Impressions: Pneumonitis Hypotension Qualified Codes: I95.9 - Hypotension, unspecified Disposition: 09 ADMITTED INPATIENT Admit to: Med Surg Condition: Guarded Critical Care Note Critical Care Time?: Yes (90 min-critical care time only) Critical care comment: Hypotension continue to monitor Stability Stability form required: No Heart Score Heart Score: Heart Score Response (Comments) Value History Slightly Suspicious 0 EKG Normal 0 Age >65 2 Risk Factors >3 or Hx ASHD 2 Troponin Normal limit 0 Total 4 I personally scribed for PATRICIA NG MD ([email or web address]) on 11/25/24 at 08:26. Electronically submitted by Chetan Vizcarra ([email or web address]). I personally scribed for PATRICIA NG MD ([email or web address]) on 11/25/24 at 08:28. Electronically submitted by Chetan Vizcarra ([email or web address]). I personally scribed for PATRICIA NG MD ([email or web address]) on 11/25/24 at 11:13. Electronically submitted by Chetan Vizcarra ([email or web address]). PATRICIA NG MD Nov 25, 2024 08:26
--- NOTE | 2024-11-25 08:52 | DVH ---
CHEST RADIOGRAPH Indication: sob Technique: Single frontal view of the chest was obtained COMPARISON: XY CHEST PORTABLE on DOS: 08/14/24, XY CHEST XRAY 1 VIEW on DOS: 08/12/24, XY CHEST XRAY 1 VIEW on DOS: 08/11/24, XY CHEST XRAY 1 VIEW on DOS: 08/10/24, XY CHEST XRAY 1 VIEW on DOS: 08/09/24 FINDINGS: Lines and Tubes: None Lungs: Moderate right basilar pulmonary airspace disease and possible small pleural effusion. There i s elevation of the right hemidiaphragm. The remaining lung zones are clear. No pneumothorax. Cardiomediastinal contours: Unremarkable Bones: Unremarkable IMPRESSION: 1. Right basilar pulmonary airspace disease and probable small bilateral pleural effusion. Elevated r ight hemidiaphragm.
[2024-11-25 09:05] LABS: Hemoglobin 11.4 g/dL (13.5-17.5); Mean Corpuscular Volume 74.6 fL (80.0-100.0); Nucleated Red Blood Cells % 0.0 %
[2024-11-25 09:07] LABS: Hematocrit 35.4 % (41.0-53.0); Mean Corpuscular Hemoglobin 24.1 pg (28.0-32.0)
[2024-11-25 09:11] LABS: Anion Gap 12 (5-15); Carbon Dioxide 25 mmol/L (20-31); Chloride 105 mmol/L (98-107); Potassium 3.6 mmol/L (3.5-5.1); Sodium 142 mmol/L (136-145)
[2024-11-25 09:12] LABS: Calcium 9.8 mg/dL (8.7-10.4)
[2024-11-25 09:17] LABS: BUN/Creatinine Ratio 23.4 (10.0-20.0); Blood Urea Nitrogen 29 mg/dL (9-23); Glucose 132 mg/dL (74-106)
[2024-11-25] MEDS: SODIUM CHLORIDE 0.9% 1,000 ML IV ONE ×3 (09:46→12:25)
[2024-11-25] MEDS: HYDROcodone-ACET 5/325MG TAB PO ONE (09:47)
[2024-11-25 09:52] LABS: Urine Protein, UAD 2+ (Negative); Urine WBC Clumps PRESENT /hpf (None Seen)
[2024-11-25] MEDS: NOREPINEPHRINE 8 MG/250ML KIT 250 ML IV ONE (10:47)
[2024-11-25] MEDS: NOREPINEPHRINE 8 MG/250ML KIT 250 ML IV SCH (10:47)
[2024-11-25] MEDS: cefTRIAXone 1GM/50ML D5W 50 ML IV ONE (11:49)
[2024-11-25] MEDS: AZITHROMYCIN 500MG/ 250ML 250 ML IV ONE (12:30)
--- NOTE | 2024-11-25 12:42 | DVHHP2 ---
History of Present Illness Reason for Visit: Weakness and shortness of the breath History of Present Illness 79-year-old male past medical history UTIs hyperlipidemia hypertension CVA bed- bound diabetes gout chronic back pain Andrade dependent chief complaint patient comes from a nursing home facility today for generalized weakness and shortness of the breath staff found patient to be hypoxic at 70% on room air he came from known sweats so they brought him in for evaluation when evaluating patient's labs and imaging normal saline was given patient was hypertensive 80s over 60s with his blood pressure so he was provided Levophed drip ceftriaxone was given hemoglobin was found to be 11.435.4 white count was 17.6 UA shows some blood and some white cells chest x-ray showed right pulmonary pneumonia and airspace disease. With these findings we will admit patient has since patient found to be with the acute sepsis he will need to be placed in ICU since he is hypertensive Levophed drip Past Medical History See HPI above Past Surgical History See HPI above Family History See HPI above Past Social History Patient's lives in nursing home facility no smoking or drinking or drug use Review of Systems Constitutional: No: Fever, Chills, Sweats, Weakness, Malaise, Other Eyes: No: Pain, Vision change, Conjunctivae inflammation, Eyelid inflammation, Other, Redness ENT: No: Ear pain, Ear discharge, Nose pain, Nose discharge, Nose congestion, Mouth pain, Mouth swelling, Throat pain, Throat swelling, Other Respiratory: Other (Coarse rales heard throat); No: Cough, Dry, Shortness of breath, SOB with excertion, Wheezing, Hemoptysis, Pleuritic Pain, Sputum, Wheezing Cardiovascular: No: Chest Pain, Palpitations, Orthopnea, Paroxysmal Noc. Dyspnea, Edema, Lt Headedness, Other Gastrointestinal: No: Nausea, Vomiting, Abdominal Pain, Diarrhea, Constipation, Melena, Hematochezia, Other Genitourinary: No Dysuria, No Frequency, No Incontinence, No Hematuria, No Retention, No Other Musculoskeletal: other (Back pain); No: neck pain, shoulder pain, arm pain, back pain, hand pain, leg pain, foot pain Skin: No: Rash, Lesions, Jaundice, Bruising, Other Neurological: Other (bed bound) Allergies: Coded Allergies: NO KNOWN ALLERGIES (Unverified , 01/20/21) Medications Current Medications Medications Dose Ordered Sig/Shlomo Route Start Time Stop Time Status Last Admin Dose Admin Norepinephrine Bitartrate 250 ml @ 3.75 mls/hr Q24H IV 11/25/24 10:45 11/25/24 10:47 3.75 MLS/HR Exam Vital Signs Vital Signs Date Time Temp Pulse Resp B/P (MAP) Pulse Ox O2 Delivery O2 Flow Rate FiO2 11/25/24 11:38 125/76 11/25/24 11:25 74 18 97 11/25/24 08:40 Simple Mask* 6 50 11/25/24 08:30 97.6 97.6 General Appearance: Alert, Oriented X3, Cooperative, mild distress HEENT: Atraumatic, PERRLA, EOMI, Mucous membr. moist/pink Respiratory: Other (Coarse rales throughout) Cardiovascular: Regular rate, Normal S1, Normal S2, No murmurs Abdominal: Normal bowel sounds, Soft, No tenderness, No hepatospenomegaly, No masses, Other (Andrade catheter in place) Extremities: No clubbing, No cyanosis, No edema, Normal pulses, No tenderness/swelling Skin: No rashes, No breakdown, No significant lesion Neuro: Normal speech, Sensation intact, Other (Bed-bound) Psych/Mental Status: Mental status NL, Mood NL Labs/Xrays Chest x-ray showed right pulmonary airspace disease and pneumonia I reviewed labs, imaging CT scan abdomen pelvis, EKG and all diagnostic studies on this patient from ED records and the medical chart Labs Test 11/25/24 11:22 11/25/24 09:10 11/25/24 08:47 Range/Units Lactic Acid Level 1.2 0.4-2.0 mmol/L Urine Color Yellow Yellow Urine Clarity Cloudy H Clear Urine pH 5.5 5.0-9.0 Urine Specific [place] 1.015 1.001-1.035 Urine Protein 2+ H Negative Urine Ketones Negative Negative Urine Blood 3+ H Negative /uL Urine Nitrite Negative Negative Urine Bilirubin Negative Negative Urine Urobilinogen Normal Negative mg/dL Urine Leukocyte Esterase 3+ Negative /uL Urine RBC 482 0 - 3 /hpf Urine WBC Clumps Present None Seen /hpf Urine Microscopic WBC 2939 H 0-3 /HPF Urine Squamous Epithelial Cells None seen <5 /hpf Urine Bacteria Many H None Seen /hpf Urine Mucus Few None Seen Urine Glucose Normal Normal mg/dL White Blood Count 17.6 H 4.4-10.8 10^3/uL Red Blood Count 4.74 4.5-5.90 10^6/uL Hemoglobin 11.4 L 13.5-17.5 g/dL Hematocrit 35.4 L 41.0-53.0 % Mean Corpuscular Volume 74.6 L 80.0-100.0 fL Mean Corpuscular Hemoglobin 24.1 L 28.0-32.0 pg Mean Corpuscular Hemoglobin Concent 32.4 32.0-36.0 g/dL Red Cell Distribution Width 17.2 H 11.8-14.3 % Platelet Count 345 140-450 10^3/uL Mean Platelet Volume 7.3 6.9-10.8 fL Neutrophils (%) (Auto) 79.9 37.0-80.0 % Lymphocytes (%) (Auto) 10.2 10.0-50.0 % Monocytes (%) (Auto) 9.5 0.0-12.0 % Eosinophils (%) (Auto) 0.1 0.0-7.0 % Basophils (%) (Auto) 0.3 0.0-2.0 % Neutrophils # (Auto) 14.0 H 1.6-8.6 10 ^3/uL Lymphocytes # (Auto) 1.8 0.4-5.4 10 ^3/uL Monocytes # (Auto) 1.7 H 0-1.3 10 ^3/uL Eosinophils # (Auto) 0 0-0.8 10 ^3/uL Basophils # (Auto) 0.1 0-0.2 10 ^3/uL Nucleated Red Blood Cells 0.0 % Sodium Level 142 136-145 mmol/L Potassium Level 3.6 3.5-5.1 mmol/L Chloride Level 105 98-107 mmol/L Carbon Dioxide Level 25 20-31 mmol/L Anion Gap 12 5-15 Blood Urea Nitrogen 29 H 9-23 mg/dL Creatinine 1.24 0.700-1.30 mg/dL Glomerular Filtration Rate Calc 62 >90 mL/min BUN/Creatinine Ratio 23.4 H 10.0-20.0 Serum Glucose 132 H 74-106 mg/dL Calcium Level 9.8 8.7-10.4 mg/dL Troponin I High Sensitivity 11 </=54 ng/L Assessment/Plan Assessment/Plan Acute septic shock likely from pna acute metabolic encephalopathy acute community-acquired bacterial pneumonia Acute hypoxic respiratory failure acute leukocytosis acute hypotension on levophed hld htn dm ISS gout hx CVA hx Admit to intensive care unit Breathing treatment as per respiratory Pain control management as needed IV antibiotic management patient found to have pneumonia ordered vanco and Zosyn Management of fluids and electrolytes will order COVID and influenza continue Andrade catheter, strict IO's will change Andrade catheter Consultation for cardiology/pulmonology, chest x-ray shows pna DVT prophylaxis heparin Repeat labs now and follow-up labs in a.m. Continue with current medical management cont levophed Treatment plan discussed with patient and RN. fen/ppx npo for now ivf scd heparin protonix plan admit to ICU Plan discussed with: Other (nursing and ed records) Date of Service: Nov 25, 2024 Billing Provider: CARLOS CANNON DNP Common Visit Codes: [id number] INP/OBS CARE (HIGH), [id number] CARE 30- 74 MIN (Total critical care time: Approximately 45 minutes This critical care time included obtaining a history; examining the patient; pulse oximetry; ordering and review of studies; arranging urgent treatment with development of a management plan; evaluation of patient's response to treatment; frequent reassessment; and, discussions with other providers.) CARLOS CANNON DNP Nov 25, 2024 12:42
[2024-11-25] MEDS ORDERED: NITROGLYCERIN 0.4 MG SL TAB SL PRN (12:45)
[2024-11-25] MEDS ORDERED: DOCUSATE SOD 100 MG CAP PO PRN (12:45)
[2024-11-25] MEDS ORDERED: VANCOMYCIN PER PHARMACY 0 MG IV SCH (12:45)
[2024-11-25] MEDS ORDERED: ONDANSETRON HCL 4 MG/2 ML VIAL IV PRN (12:45)
[2024-11-25] MEDS ORDERED: DEXTROSE (50%) 50ML SYRG IV PRN (12:45)
[2024-11-25] MEDS: SODIUM CHLORIDE 0.9% 1,000 ML IV SCH (12:59)
[2024-11-25] MEDS: MORPHINE SULFATE INJ 2 MG/ml SYRG IV PRN (13:47)
[2024-11-25] MEDS: ONDANSETRON HCL 4 MG/2 ML VIAL IV PRN (13:48)
[2024-11-25] MEDS: VANCOMYCIN 1GM/200ML PM 250 ML IV SCH (14:45)
[2024-11-25 14:57] LABS: COVID19 ANTIGEN SOFIA FIA NEGATIVE (NEGATIVE)
[2024-11-25] MEDS: PIPERACILLIN-TAZOB 3.375GM 100 ML IV ONE (15:28)
[2024-11-25] MEDS: PIPERACILLIN-TAZOB 3.375GM 100 ML IV SCH (17:32)
[2024-11-25] MEDS: InsuLIN REG 1unit/0.01ml Soln (100units/ml) SC SCH (17:37)
[2024-11-25] MEDS: ACCU-CHEK COMFORT CURVE STRIP VI SCH (17:37)
--- NOTE | 2024-11-25 18:27 | ECG ---
[facility] Test Date: 2024-11-25 Test Time: 08:20:51 Pat Name: CAROL ISBELL Department: ED Room: [address] [place] [address] A Gender: M Non Destructive Testing Inspector: JESUS : 1950 Requested By: PATRICIA NG Order Number: [id number] Reading MD: Saman Maier Measurements Intervals [place] Rate: 93 P: 32 SC: 161 QRS: -119 QRSD: 142 T: 4 QT: 420 QTc: 523 Interpretive Statements Sinus rhythm RBBB and LAFB Baseline wander in lead(s) I,III,aVR,aVL,aVF,V1,V3,V4,V5,V6 Electronically Signed On 11-25-2024 20:15:17 PDT by Saman Maier Please click the below link to view image of tracing.
[2024-11-26] VITALS (98 sets, daily range): BP systolic 87–146; BP diastolic 48–90; PULSE 53–80; RESP 10–25; TEMP 97.9–98.5; O2SAT 78–100
[2024-11-26] MEDS: PIPERACILLIN-TAZOB 3.375GM 100 ML IV SCH (01:26)
[2024-11-26] MEDS ORDERED: VANCOMYCIN 750MG KIT 100 ML IV SCH (06:00)
[2024-11-26 07:03] LABS: Anion Gap 10 (5-15)
[2024-11-26 07:08] LABS: BUN/Creatinine Ratio 22.1 (10.0-20.0); Hematocrit 30.6 % (41.0-53.0); Hemoglobin 10.1 g/dL (13.5-17.5); Nucleated Red Blood Cells % 0.0 %
[2024-11-26] MEDS: VANCOMYCIN 750mg/150ml 150 ML IV SCH (07:09)
[2024-11-26 07:11] LABS: Mean Corpuscular Hemoglobin 24.7 pg (28.0-32.0); Mean Corpuscular Volume 74.8 fL (80.0-100.0)
[2024-11-26 07:18] LABS: Alanine Aminotransferase 25 U/L (7-40); Albumin 3.5 g/dL (3.2-4.8); Alkaline Phosphatase 55 U/L (46-116); Bilirubin, Total 0.4 mg/dL (0.2-1.0); Blood Urea Nitrogen 21 mg/dL (9-23); Calcium 9.0 mg/dL (8.7-10.4); Carbon Dioxide 23 mmol/L (20-31); Chloride 110 mmol/L (98-107); Glucose 105 mg/dL (74-106); Potassium 3.3 mmol/L (3.5-5.1); Sodium 143 mmol/L (136-145); Total Protein 6.1 g/dL (5.7-8.2)
[2024-11-26] MEDS: ENOXAPARIN SOD 40 MG/0.4 ML SYRINGE SC SCH (08:08)
[2024-11-26] MEDS: HYDROcodone-ACET 5/325MG TAB PO ONE (08:08)
[2024-11-26] MEDS: POTASSIUM EFFERVESENT TAB 25 MEQ PO ONE (15:35)
[2024-11-26] MEDS: CALCIUM CARB 500 MG CHEW TAB PO PRN (16:50)
[2024-11-26] MEDS: HYDROcodone-ACET 5/325MG TAB PO PRN (20:19)
--- NOTE | 2024-11-26 23:01 | DVHINCON2 ---
Date of service: Nov 26, 2024 Referring Physician ISMAEL Bustos Reason for Consultation Acute hypoxic respiratory failure, pneumonitis and atelectasis. History of Present Illness A 74-year-old man with past medical history of hypertension, diabetes, CVA, UTIs, and chronic back pain, bed-bound, Andrade dependent, who presented to ED on 11/25/24 with chief complaint of generalized weakness and shortness of breath. Staff at his correction facility had found patient to be hypoxic at 70% on room air and he was brought in for evaluation. While in the ED patient was given normal saline; he was hypotensive at 80s over 60s and was started on Levophed drip and antibiotics. White count was 17.6. UA showed some blood and some white cells. Chest x-ray showed right sided pneumonia and airspace disease. Patient was diagnosed with acute sepsis and admitted to ICU for further care. Pulmonary consultation is requested for evaluation and man agement of acute hypoxic respiratory failure, pneumonitis and atelectasis. Review of Systems: 14-point review of systems negative unless otherwise noted above. Past Medical History: Hyperlipidemia, hypertension, diabetes, CVA, gout, UTIs, chronic back pain, bed- bound, Andrade dependent. Past Surgical History: None Medications: Reviewed. Allergies: No known drug allergies. Family History: Heart disease, CVA, hypertension. Social History: Nonsmoker. No alcohol or illicit drug use. Pt lives at a correction facility. Family History: Cardiovascular disease G8 MOTHER, , Age: 81 G8 MOTHER Cerebrovascular accident (CVA) G8 MOTHER, , Age: 81 G8 MOTHER Hypertension G8 MOTHER, , Age: 81 G8 MOTHER Allergies: Coded Allergies: NO KNOWN ALLERGIES (Unverified , 01/20/21) Home Meds Active Scripts Levofloxacin Hemihydrate (LEVAQUIN 500 MG) 500 Mg Tab, 500 MG PO DAILY for 7 Days, #7 TAB Prov:BRANDIN TORRES MD 08/03/23 Gabapentin (Gabapentin) 100 Mg Cap, 100 MG PO TID, #90 CAP Prov:ANIYA SANTILLAN MD 01/23/21 Reported Medications Insulin Regular (Human) (Humulin R) 100 Unit/Ml Inj, 2 UNIT SC ACHS for ELEVATED BLOOD SUGAR, INJ 08/02/24 Magnesium Hydroxide (MILK OF MAGNESIA ORAL SUSPENSION) 30 Ml Ss, 30 ML PO DAILY for BOWEL MANAGEMENT, ML 08/02/24 Naloxone HCl (Naloxone Hydrochloride) 4 Mg/0.1 Ml Spr, 4 MG NA for OPIOD OVERDOSE, SPRAY 08/02/24 Nitroglycerin (NTROSTAT SUBLINGUAL) 0.4 Mg Sl, 0.4 MG SL Q5MIN PRN for CHEST PAIN, TAB *MAY REPEAT EVERY 5 MINUTES X 3 TOTAL IF NO RELIEF, INITIATE ANALGESIC THERAPY. NOTIFY PHYSICIAN *Do not crush. 08/02/24 Lactobacillus (Probiotic Acidophilus) 1 Cap Cap, 1 CAP PO BID, CAP 08/02/24 Alpha Tocopheryl Acid Succinat (VITAMIN E) 400 Unit Tab, 400 UNIT PO DAILY, TAB 08/02/24 Ascorbic Acid (VITAMIN C TABLET) 500 Mg Tb, 1 TAB PO BID, #60 TAB 08/02/24 Hydrocodone-Acetaminophen (Hydrocodone Bitartrate/AC 5-325 mg) 1 Tab Tab, 1 TAB PO Q6HR for PAIN 4-10, TAB 08/02/24 Lisinopril (Lisinopril) 20 Mg Tab, 20 MG PO DAILY for 30 Days, MG 08/02/24 Albuterol Sulfate (Albuterol Sulfate) 0.083 % Neb, 1 VIAL NEB Q6H, #50 VIAL 08/02/24 Acetaminophen (Acetaminophen) 325 Mg Tab, 650 MG PO Q6HPRN for MILD PAIN for 30 Days, MG 0 Refills 08/02/24 Hydrochlorothiazide (Hydrochlorothiazide) 12.5 Mg Cap, 12.5 MG PO Q6HPRN PRN for SBP>150 for 30 Days, MG 08/02/24 Levofloxacin Hemihydrate (LEVOFLOXACIN) 750 Mg Tab, 1 TAB PO DAILY for 32 Days, #32 TAB 08/02/24 Gemfibrozil (Gemfibrozil) 600 Mg Tab, 600 MG PO AC for 30 Days 08/02/24 Gabapentin (Gabapentin) 100 Mg Cap, 1 CAP PO DAILY, #90 CAP 2 Refills 08/02/24 Duloxetine Hcl (Cymbalta) 20 Mg Cap, 1 CAP PO DAILY, #30 CAP 2 Refills 08/02/24 Finasteride (Finasteride) 5 Mg Tab, 5 MG PO DAILY@BREAKFAST 01/22/21 Allopurinol (Allopurinol) 100 Mg Tab, 100 MG PO DAILY for 30 Days, MG 03/24/20 Tamsulosin Hcl (Tamsulosin Hcl) 0.4 Mg Cap, 0.4 MG PO QPM for 30 Days, MG 10/20 Current Medications Current Medications Medications (Trade) Dose Ordered Sig/Shlomo Route PRN Reason Start Time Stop Time Status Last Admin Enoxaparin Sodium (Lovenox) 40 mg DAILY SC 11/26/24 10:00 11/26/24 08:08 Vancomycin HCl 100 ml @ 100 mls/hr Q12H IV 11/26/24 06:00 11/26/24 07:04 DC Piperacillin Sod/ Tazobactam Sod 100 ml @ 25 mls/hr Q8HR IV 11/26/24 01:30 11/26/24 16:50 Vancomycin HCl 150 ml @ 150 mls/hr Q12H IV 11/26/24 06:00 11/26/24 18:19 Acetaminophen/ Hydrocodone Bitart (Colo 5/325MG Tab) 1 tab Q6HPRN PRN PO MODERATE PAIN (4-6 PAIN SCALE) 11/26/24 15:00 11/26/24 20:19 Pantoprazole Sodium (Protonix Tablet) 40 mg DAILY@0600 PO 11/27/24 06:00 Calcium Carbonate (Tums) 500 mg QIDPRN PRN PO FOR STOMACH DISTRESS 11/26/24 15:00 11/26/24 16:50 Vital Signs Vital Signs Date Time Temp Pulse Resp B/P (MAP) Pulse Ox O2 Delivery O2 Flow Rate FiO2 11/26/24 21:15 68 20 109/67 (81) 98 11/26/24 20:01 98.4 98.4 11/26/24 20:00 Nasal Cannula* 06 23 Physical Exam Gen.: Patient lying in bed in no apparent distress. On supplemental oxygen. Head: Normocephalic, atraumatic. Eyes: EOMI/PERRLA. Ears: Normal hearing. Normal anatomy. Neck/trachea: Trachea midline, supple. Nose: Normal external anatomy. Mouth: Moist mucous membranes. Chest: Decreased air entry bilaterally. No wheezing or rhonchi. Cardiovascular: Positive S1, positive S2. Regular rate and rhythm. Abdomen: Positive bowel sounds in all 4 quadrants. Soft, non-tender, non- distended. : Deferred. Rectal: Deferred. Skin: Warm, dry. Intact. Extremities: 2+ radial pulses bilaterally. No lower extremity edema. Neuro: Awake, alert, oriented x3. No gross motor or sensory deficits. Cranial nerves II through XII intact. Gait not assessed. Labs/Diagnostic Data Labs Test 11/26/24 17:05 11/26/24 06:43 11/25/24 13:17 11/25/24 11:22 Range/Units POC Glucose 97 70-106 mg/dl White Blood Count 10.2 # 4.4-10.8 10^3/uL Red Blood Count 4.10 L 4.5-5.90 10^6/uL Hemoglobin 10.1 L 13.5-17.5 g/dL Hematocrit 30.6 #L 41.0-53.0 % Mean Corpuscular Volume 74.8 L 80.0-100.0 fL Mean Corpuscular Hemoglobin 24.7 L 28.0-32.0 pg Mean Corpuscular Hemoglobin Concent 33.0 32.0-36.0 g/dL Red Cell Distribution Width 16.8 H 11.8-14.3 % Platelet Count 271 140-450 10^3/uL Mean Platelet Volume 7.4 6.9-10.8 fL Neutrophils (%) (Auto) 78.9 37.0-80.0 % Lymphocytes (%) (Auto) 9.5 L 10.0-50.0 % Monocytes (%) (Auto) 9.2 0.0-12.0 % Eosinophils (%) (Auto) 2.1 0.0-7.0 % Basophils (%) (Auto) 0.3 0.0-2.0 % Neutrophils # (Auto) 8.1 1.6-8.6 10 ^3/uL Lymphocytes # (Auto) 1.0 0.4-5.4 10 ^3/uL Monocytes # (Auto) 0.9 0-1.3 10 ^3/uL Eosinophils # (Auto) 0.2 0-0.8 10 ^3/uL Basophils # (Auto) 0 0-0.2 10 ^3/uL Nucleated Red Blood Cells 0.0 % Sodium Level 143 136-145 mmol/L Potassium Level 3.3 L 3.5-5.1 mmol/L Chloride Level 110 H 98-107 mmol/L Carbon Dioxide Level 23 20-31 mmol/L Anion Gap 10 5-15 Blood Urea Nitrogen 21 9-23 mg/dL Creatinine 0.95 0.700-1.30 mg/dL Glomerular Filtration Rate Calc 85 >90 mL/min BUN/Creatinine Ratio 22.1 H 10.0-20.0 Serum Glucose 105 74-106 mg/dL Calcium Level 9.0 8.7-10.4 mg/dL Total Bilirubin 0.4 0.2-1.0 mg/dL Aspartate Amino Transferase (AST) 27 <34 U/L Alanine Aminotransferase (ALT) 25 7-40 U/L Alkaline Phosphatase 55 46-116 U/L Total Protein 6.1 5.7-8.2 g/dL Albumin 3.5 3.2-4.8 g/dL Influenza Type A Antigen Negative Negative Influenza Type B Antigen Negative Negative SARS-CoV-2 Antigen (Rapid) Negative NEGATIVE Lactic Acid Level 1.2 0.4-2.0 mmol/L Test 11/25/24 09:10 11/25/24 08:47 Range/Units Urine Color Yellow Yellow Urine Clarity Cloudy H Clear Urine pH 5.5 5.0-9.0 Urine Specific [place] 1.015 1.001-1.035 Urine Protein 2+ H Negative Urine Ketones Negative Negative Urine Blood 3+ H Negative /uL Urine Nitrite Negative Negative Urine Bilirubin Negative Negative Urine Urobilinogen Normal Negative mg/dL Urine Leukocyte Esterase 3+ Negative /uL Urine RBC 482 0 - 3 /hpf Urine WBC Clumps Present None Seen /hpf Urine Microscopic WBC 2939 H 0-3 /HPF Urine Squamous Epithelial Cells None seen <5 /hpf Urine Bacteria Many H None Seen /hpf Urine Mucus Few None Seen Urine Glucose Normal Normal mg/dL Troponin I High Sensitivity 11 </=54 ng/L Microbiology Date/Time Source Procedure Growth Status 11/25/24 15:00 Nose MRSA Screen - Final Complete 11/25/24 11:22 Blood Blood Culture - Preliminary NO GROWTH AFTER 24 HOURS OF INCUBATION. Resulted 11/25/24 09:10 Urine - Andrade Port Urine Culture - Preliminary Resulted Assessment Impression: Acute hypoxic respiratory failure Dependence on supplemental oxygen Septic shock Hypokalemia Urinary tract infection, chronic indwelling Andrade Pneumonitis Atelectasis Plan: Supplemental oxygen 2 LPM NC Titrate to keep O2 sats above 92%. Taper O2 as tolerated. Off Levophed, currently hemodynamically stable. Taken off this AM at 7 AM. Continue antibiotics Follow up cultures Incentive spirometry for atelectasis Head of bed elevation Aspiration precautions IV fluids with NS at 100 ml/hr Monitor renal function. Monitor electrolytes. Supplement as necessary. Supplement potassium Monitor ins and outs Pt has chronic indwelling Andrade DVT prophylaxis. Prognosis: Poor given patient's multiple co-morbidities. Rest of plan per hospitalist and other consultants. Thank you, ISMAEL Bustos, for allowing me to participate in this patient's care. Further recommendations will depend on the patient's clinical course. Please do not hesitate to contact me if you have any questions or concerns. This medical document was created using an electronic medical record system with [employer] dictation system. Although these documentations are being carefully reviewed, there may still be some phonetic and typographical changes. The errors are purely typographical, due to imperfection on the software program, and do not reflect any compromise in the patient's medical care. Plan discussed with: Patient, Other (ELIOT Kelyl/ISMAEL Bustos/) VAN AHUJA MD Nov 26, 2024 23:01
[2024-11-27] VITALS (55 sets, daily range): BP systolic 99–157; BP diastolic 64–97; PULSE 66–101; RESP 11–29; TEMP 97.6–98.8; O2SAT 94–100
[2024-11-27 04:04] LABS: Hematocrit 31.0 % (41.0-53.0); Hemoglobin 10.2 g/dL (13.5-17.5); Mean Corpuscular Hemoglobin 24.6 pg (28.0-32.0); Mean Corpuscular Volume 74.5 fL (80.0-100.0); Nucleated Red Blood Cells % 0.1 %
[2024-11-27 04:23] LABS: Alanine Aminotransferase 36 U/L (7-40); Albumin 3.5 g/dL (3.2-4.8); Alkaline Phosphatase 59 U/L (46-116); Anion Gap 10 (5-15); BUN/Creatinine Ratio 14.6 (10.0-20.0); Blood Urea Nitrogen 14 mg/dL (9-23); Carbon Dioxide 22 mmol/L (20-31); Glucose 87 mg/dL (74-106); Potassium 3.6 mmol/L (3.5-5.1); Sodium 143 mmol/L (136-145); Total Protein 6.2 g/dL (5.7-8.2)
[2024-11-27 04:38] LABS: Bilirubin, Total 0.2 mg/dL (0.2-1.0); Calcium 8.6 mg/dL (8.7-10.4); Chloride 111 mmol/L (98-107)
[2024-11-27] MEDS: PANTOPRAZOLE 40 MG TAB PO SCH (05:56)
[2024-11-27] MEDS: PIPERACILLIN-TAZOB 3.375GM 100 ML IV SCH (09:01)
[2024-11-27] MEDS: VANCOMYCIN 750mg/150ml 150 ML IV SCH (12:13)
[2024-11-27] MEDS: ALBUTEROL SULF 2.5 MG/0.5ML(0.5%) NEB SOLN NEB SCH (12:25)
[2024-11-27] MEDS: IPRATROPIUM BROM 0.5 MG/2.5ML INH SOL NEB SCH (12:25)
--- NOTE | 2024-11-27 12:56 | DVHPN2 ---
Subjective Patient denies any symptoms Reviewed: Care Plan, H&P, Labs, Medications, Previous Orders Changes from previous H/P or p: No Changes General: Per HPI Eyes: No Pain, No Vision change, No Conjunctivae inflammation, No Eyelid inflammation, No Other, No Redness ENT: No Ear pain, No Ear discharge, No Nose pain, No Nose discharge, No Nose congestion, No Mouth pain, No Mouth swelling, No Throat pain, No Throat swelling, No Other Cardiovascular: No Chest Pain, No Palpitations, No Orthopnea, No Paroxysmal Noc. Dyspnea, No Edema, No Lt Headedness, No Other Respiratory: No Cough, No Dry, No Shortness of breath, No SOB with excertion, No Wheezing, No Hemoptysis, No Pleuritic Pain, No Sputum; Other (Coarse rales heard throat) Gastrointestinal: No Nausea, No Vomiting, No Abdominal Pain, No Diarrhea, No Constipation, No Melena, No Hematochezia, No Other Genitourinary: No Dysuria, No Frequency, No Incontinence, No Hematuria, No Retention, No Other Musculoskeletal: other (Back pain); No neck pain, No shoulder pain, No arm pain, No back pain, No hand pain, No leg pain, No foot pain Skin: No Rash, No Lesions, No Jaundice, No Bruising, No Other Objective Vitals Vital Signs Date Time Temp Pulse Resp B/P (MAP) Pulse Ox O2 Delivery O2 Flow Rate FiO2 11/27/24 12:32 82 17 99 11/27/24 12:26 Nasal Cannula 1.0 11/27/24 12:26 24 11/27/24 12:00 98.0 121/76 (91) 98.0 Intake/Output Intake and Output 11/27/24 07:00 Intake Total 3690 ml Output Total 1640 ml Balance 2050 ml Intake Oral 790 ml IV Total 2900 ml Output Urine Total 1640 ml # Bowel Movements 1 General Appearance: Alert, Oriented X3, Cooperative, mild distress HEENT: Atraumatic, PERRLA Lungs: Other (Rhonchi in right base) Cardiovascular: Normal S1, Normal S2 Abdomen: Normal bowel sounds, Soft, No tenderness, No hepatospenomegaly, No masses Musculoskeletal: Normal sensory function, Normal motor function Skin: Dry, Intact Psych/Mental Status: Mental status NL, Mood NL Medications Current Medications Medications Dose Ordered Sig/Shlomo Route Start Time Stop Time Status Last Admin Dose Admin Norepinephrine Bitartrate 250 ml @ 3.75 mls/hr Q24H IV 11/25/24 10:45 11/25/24 10:47 3.75 MLS/HR Diagnostic Test (Pha) 1 strip Q6HR 11/25/24 18:00 11/27/24 12:13 1 STRIP Insulin Human Regular Q6HR SC 11/25/24 18:00 11/27/24 12:17 2 UNITS Dextrose 50 ml UD PRN IV 11/25/24 12:45 Sodium Chloride 1,000 ml @ 100 mls/hr Q10H IV 11/25/24 12:45 11/27/24 12:14 100 MLS/HR Docusate Sodium 100 mg BIDPRN PRN PO 11/25/24 12:45 Enoxaparin Sodium 40 mg DAILY SC 11/26/24 10:00 11/27/24 09:02 40 MG Nitroglycerin 0.4 mg Q5MINP PRN SL 11/25/24 12:45 Vancomycin HCl 0 ml @ 0 mls/hr UD IV 11/25/24 12:45 Morphine Sulfate 2 mg Q4HPRN PRN IV 11/25/24 13:30 Hold 11/26/24 04:32 2 MG Ondansetron HCl 4 mg Q4HPRN PRN IV 11/25/24 13:30 11/26/24 14:58 4 MG Acetaminophen/ Hydrocodone Bitart 1 tab Q6HPRN PRN PO 11/26/24 15:00 11/26/24 20:19 1 TAB Pantoprazole Sodium 40 mg DAILY@0600 PO 11/27/24 06:00 11/27/24 05:56 40 MG Calcium Carbonate 500 mg QIDPRN PRN PO 11/26/24 15:00 11/27/24 11:00 500 MG Vancomycin HCl 150 ml @ 150 mls/hr Q12H IV 11/27/24 12:00 11/27/24 12:13 150 MLS/HR Cefepime HCl 50 ml @ 12.5 mls/hr Q8HR IV 11/27/24 14:00 Albuterol 2.5 mg Q6HWA NEB 11/27/24 12:00 11/27/24 12:25 2.5 MG Ipratropium [place] 0.5 mg Q6HWA NEB 11/27/24 12:00 11/27/24 12:25 0.5 MG Laboratory Results Laboratory Tests 11/27/24 03:22 Chemistry Test 11/27/24 03:22 Albumin 3.5 g/dL (3.2-4.8) Calcium Level 8.6 mg/dL (8.7-10.4) L Total Protein 6.2 g/dL (5.7-8.2) LFT Test 11/27/24 03:22 Alanine Aminotransferase (ALT) 36 U/L (7-40) Alkaline Phosphatase 59 U/L (46-116) Aspartate Amino Transferase (AST) 39 U/L (<34) H Total Bilirubin 0.2 mg/dL (0.2-1.0) Urinalysis Test 11/25/24 09:10 Urine Color Yellow (Yellow) Urine Clarity Cloudy (Clear) H Urine pH 5.5 (5.0-9.0) Urine Specific [place] 1.015 (1.001-1.035) Urine Protein 2+ (Negative) H Urine Ketones Negative (Negative) Urine Blood 3+ /uL (Negative) H Urine Nitrite Negative (Negative) Urine Bilirubin Negative (Negative) Urine Urobilinogen Normal mg/dL (Negative) Urine Leukocyte Esterase 3+ /uL (Negative) Urine RBC 482 /hpf (0 - 3) Urine WBC Clumps Present /hpf (None Seen) Urine Microscopic WBC 2939 /HPF (0-3) H Urine Squamous Epithelial Cells None seen /hpf (<5) Urine Bacteria Many /hpf (None Seen) H Urine Mucus Few (None Seen) Urine Glucose Normal mg/dL (Normal) Microbiology Microbiology Date/Time Source Procedure Growth Status 11/25/24 15:00 Nose MRSA Screen - Final Complete 11/25/24 11:22 Blood Blood Culture - Preliminary NO GROWTH AFTER 48 HOURS OF INCUBATION. Resulted 11/25/24 09:10 Urine - Andrade Port Urine Culture - Preliminary Resulted Labs and/or images reviewed: Labs reviewed by me, Image(s) reviewed by me Assessment/Plan Assessment/Plan Impression: -septic shock secondary to complicated cystitis -complicated cystitis -history of CVA with bed-bound status -chronic indwelling Andrade catheter -gout -chronic back pain Plan: -antibiotic therapy: Cefepime, vancomycin -norepinephrine has been weaned off. -blood and urine cultures -continue IV hydration -repeat labs in a.m. -downgrade to Medical/Surgical unit Total time spent with patient discussing and formulating plan of care: 35 minutes. This medical document was created using an electronic medical record system with [employer] dictation system. Although this document has been carefully reviewed, there may still be some phonetic and typographical errors. These areas are purely typographical due to imperfections of the software programs, and do not reflect any compromise in the patient's medical care. Plan discussed with: Patient, Other (RN) My Orders Orders - FERNANDO HURST NP Procedure Category Date Status Time Cefepime 2gm/50ml Ns PHA 11/27/24 In Process (Maxipime 2gm/50ml) 14:00 Albuterol Medneb PHA 11/27/24 In Process (Ventolin Medneb) 12:00 Ipratropium Medneb PHA 11/27/24 In Process (Atrovent Medneb) 12:00 Comprehensive LAB 11/28/24 Verified Metabolic Panel 04:00 Chest Portable XY 11/28/24 Logged 04:00 Transfer Orders XFER 11/27/24 Verified 12:51 Date of Service: Nov 27, 2024 Billing Provider: FERNANDO HURST NP Common Visit Codes: [id number] INP/OBS CARE(HIGH) FERNANDO HURST NP Nov 27, 2024 12:56
[2024-11-27] MEDS: CEFEPIME 2GM/50ML NS 50 ML IV SCH (14:25)
--- NOTE | 2024-11-27 23:54 | DVHPN2 ---
Progress Note - Dictate Date Seen: Nov 27, 2024 Medical Necessity Reason Pt with a Central, PICC or Fol: Yes The following are medically ne: Trivedi Catheter Reason for trivedi catheter: Strict I&O Subjective Patient seen and examined at bedside. Breathing comfortably on room air. Overnight events reviewed. vital signs Vital Sign Date Time Temp Pulse Resp B/P (MAP) Pulse Ox O2 Delivery O2 Flow Rate FiO2 11/27/24 20:00 98.0 90 27 157/83 (107) 98 98.0 11/27/24 20:00 Nasal Cannula* 1 24 Total Intake and Output 11/26/24 11/26/24 11/27/24 15:00 23:00 07:00 Intake Total 1050 ml 1390 ml 1250 ml Output Total 640 ml 1000 ml Balance 1050 ml 750 ml 250 ml medications Current Medications Medications Dose Ordered Sig/Shlomo Route Start Time Stop Time Status Last Admin Dose Admin Norepinephrine Bitartrate 250 ml @ 3.75 mls/hr Q24H IV 11/25/24 10:45 11/25/24 10:47 3.75 MLS/HR Diagnostic Test (Pha) 1 strip Q6HR 11/25/24 18:00 11/27/24 18:00 1 STRIP Insulin Human Regular Q6HR SC 11/25/24 18:00 11/27/24 12:17 2 UNITS Dextrose 50 ml UD PRN IV 11/25/24 12:45 Sodium Chloride 1,000 ml @ 100 mls/hr Q10H IV 11/25/24 12:45 11/27/24 21:13 100 MLS/HR Docusate Sodium 100 mg BIDPRN PRN PO 11/25/24 12:45 Enoxaparin Sodium 40 mg DAILY SC 11/26/24 10:00 11/27/24 09:02 40 MG Nitroglycerin 0.4 mg Q5MINP PRN SL 11/25/24 12:45 Vancomycin HCl 0 ml @ 0 mls/hr UD IV 11/25/24 12:45 Morphine Sulfate 2 mg Q4HPRN PRN IV 11/25/24 13:30 Hold 11/26/24 04:32 2 MG Ondansetron HCl 4 mg Q4HPRN PRN IV 11/25/24 13:30 11/26/24 14:58 4 MG Acetaminophen/ Hydrocodone Bitart 1 tab Q6HPRN PRN PO 11/26/24 15:00 11/26/24 20:19 1 TAB Pantoprazole Sodium 40 mg DAILY@0600 PO 11/27/24 06:00 11/27/24 05:56 40 MG Calcium Carbonate 500 mg QIDPRN PRN PO 11/26/24 15:00 11/27/24 11:00 500 MG Vancomycin HCl 150 ml @ 150 mls/hr Q12H IV 11/27/24 12:00 11/27/24 12:13 150 MLS/HR Cefepime HCl 50 ml @ 12.5 mls/hr Q8HR IV 11/27/24 14:00 11/27/24 21:12 12.5 MLS/HR Albuterol 2.5 mg Q6HWA NEB 11/27/24 12:00 11/27/24 17:48 2.5 MG Ipratropium [place] 0.5 mg Q6HWA NEB 11/27/24 12:00 11/27/24 17:48 0.5 MG objective Gen.: Patient lying in bed in no apparent distress. Breathing on room air. Head: Normocephalic, atraumatic. Eyes: EOMI/PERRLA. Ears: Normal hearing. Normal anatomy. Neck/trachea: Trachea midline, supple. Nose: Normal external anatomy. Mouth: Moist mucous membranes. Chest: Decreased air entry bilaterally. No wheezing or rhonchi. Cardiovascular: Positive S1, positive S2. Regular rate and rhythm. Abdomen: Positive bowel sounds in all 4 quadrants. Soft, non-tender, non- distended. : Deferred. Rectal: Deferred. Skin: Warm, dry. Intact. Extremities: 2+ radial pulses bilaterally. No lower extremity edema. Neuro: Awake, alert, oriented x3. No gross motor or sensory deficits. Cranial nerves II through XII intact. Gait not assessed. laboratory and microbiology Laboratory Tests 11/27/24 03:22 Test 11/27/24 03:22 Range/Units Serum Glucose 87 74-106 mg/dL Assessment/Plan Impression: Acute hypoxic respiratory failure Septic shock Hypokalemia Urinary tract infection, chronic indwelling Trivedi Pneumonitis Atelectasis Events: Improved O2 requirements Currently breathing on room air Supplemental oxygen PRN Off pressors, hemodynamically stable Continue bronchodilators q.6 hours Continue antibiotics for UTI Blood cultures show no growth after 48 hours Incentive spirometry On IV fluids at 100 ml/hr. Head of bed elevation Aspiration precautions. recommendations appreciated DVT prophylaxis Labs and imaging reviewed. Rest of plan as noted below. Plan: Supplemental oxygen PRN Titrate to keep O2 sats above 92%. Continue antibiotics Follow up cultures Bronchodilators Incentive spirometry for atelectasis Head of bed elevation Aspiration precautions IV fluids with NS at 100 ml/hr Monitor renal function. Monitor electrolytes. Supplement as necessary. Monitor ins and outs Pt has chronic indwelling Trivedi DVT prophylaxis. Prognosis: Guarded given patient's multiple co-morbidities. Rest of plan per hospitalist and other consultants. Thank you, DATA SERVICES DEVELOPER Akash, for allowing me to participate in this patient's care. Further recommendations will depend on the patient's clinical course. Please do not hesitate to contact me if you have any questions or concerns. This medical document was created using an electronic medical record system with [employer] dictation system. Although these documentations are being carefully reviewed, there may still be some phonetic and typographical changes. The errors are purely typographical, due to imperfection on the software program, and do not reflect any compromise in the patient's medical care. Dietary Evaluation Review Comments: 1) Initiate MVI @ 1 tb qd 2) Initiate vitamin C @ 500 mg bid 3) Initiate Glucerna qd. Encourage optimal PO intake 4) Follow-up with cardiology 5) Continue to monitor I&O, labs, and skin integrity Expected Outcomes/Goals: 1) appetite and labs to improve 2) wounds to improve 3) f/u in 3-5 days Plan discussed with: Patient, Other (ELIOT Soares/Bre) VAN AHUJA MD Nov 27, 2024 23:54
[2024-11-28] VITALS (14 sets, daily range): BP systolic 110–160; BP diastolic 78–99; PULSE 76–104; RESP 16–20; TEMP 97.7–98.8; O2SAT 91–100
--- NOTE | 2024-11-28 06:45 | DVH ---
CHEST RADIOGRAPH Indication: pna Technique: Single frontal view of the chest was obtained Comparison: XY CHEST PORTABLE on DOS: 11/25/24 FINDINGS: Lines and Tubes: None Lungs: Bilateral interstitial prominence similar to prior study. Right basilar airspace disease juan lar to prior study. Pleura: No effusion. No pneumothorax. Cardiomediastinal contours: Cardiomegaly. Bones: No acute osseous abnormality. IMPRESSION: 1. No significant change in pulmonary venous congestion, right basilar airspace disease and cardiomeg bobbi.
[2024-11-28 11:07] LABS: Hemoglobin 11.0 g/dL (13.5-17.5); Mean Corpuscular Hemoglobin 24.3 pg (28.0-32.0)
[2024-11-28 11:09] LABS: Hematocrit 33.3 % (41.0-53.0); Mean Corpuscular Volume 73.7 fL (80.0-100.0); Nucleated Red Blood Cells % 0.1 %
[2024-11-28 11:18] LABS: Alanine Aminotransferase 29 U/L (7-40); Alkaline Phosphatase 60 U/L (46-116); Anion Gap 10 (5-15); BUN/Creatinine Ratio 10.8 (10.0-20.0); Calcium 9.4 mg/dL (8.7-10.4); Carbon Dioxide 23 mmol/L (20-31); Glucose 98 mg/dL (74-106); Sodium 143 mmol/L (136-145); Total Protein 6.5 g/dL (5.7-8.2)
[2024-11-28 11:19] LABS: Albumin 3.8 g/dL (3.2-4.8); Bilirubin, Total 0.4 mg/dL (0.2-1.0)
[2024-11-28 11:27] LABS: Blood Urea Nitrogen 9 mg/dL (9-23); Chloride 110 mmol/L (98-107); Potassium 3.2 mmol/L (3.5-5.1)
--- NOTE | 2024-11-28 12:12 | MEDREC ---
[facility] Intervention Section I [facility] Intervention: Deescalate AB based on CS (PLEASE CONSIDER DE-ESCALATION AND D/C VANCOMYCIN (AFEBRILE - WBC IN NORMAL RANGE - PRELIMINARY BLOOD CULTURE (72 HRS) WITH NO GROWTH)), Review courses of therapy (PLEASE RECOLLECT URINE FOR CULTURE IF INDICATED, USING PROPER COLLECTION TECHNIQUE ) DEM[employer]ICE OLEARY PHARMACIST Nov 28, 2024 12:12
--- NOTE | 2024-11-28 15:46 | DVHPN2 ---
Subjective Patient denies any symptoms Reviewed: Care Plan, H&P, Labs, Medications, Previous Orders Changes from previous H/P or p: No Changes General: Per HPI Eyes: No Pain, No Vision change, No Conjunctivae inflammation, No Eyelid inflammation, No Other, No Redness ENT: No Ear pain, No Ear discharge, No Nose pain, No Nose discharge, No Nose congestion, No Mouth pain, No Mouth swelling, No Throat pain, No Throat swelling, No Other Cardiovascular: No Chest Pain, No Palpitations, No Orthopnea, No Paroxysmal Noc. Dyspnea, No Edema, No Lt Headedness, No Other Respiratory: No Cough, No Dry, No Shortness of breath, No SOB with excertion, No Wheezing, No Hemoptysis, No Pleuritic Pain, No Sputum; Other (Coarse rales heard throat) Gastrointestinal: No Nausea, No Vomiting, No Abdominal Pain, No Diarrhea, No Constipation, No Melena, No Hematochezia, No Other Genitourinary: No Dysuria, No Frequency, No Incontinence, No Hematuria, No Retention, No Other Musculoskeletal: other (Back pain); No neck pain, No shoulder pain, No arm pain, No back pain, No hand pain, No leg pain, No foot pain Skin: No Rash, No Lesions, No Jaundice, No Bruising, No Other Objective Vitals Vital Signs Date Time Temp Pulse Resp B/P (MAP) Pulse Ox O2 Delivery O2 Flow Rate FiO2 11/28/24 13:00 97.7 76 16 129/84 (99) 91 97.7 11/28/24 11:11 Room Air 0.0 11/28/24 11:11 21 Intake/Output Intake and Output 11/28/24 07:00 Intake Total 2340 ml Output Total 1800 ml Balance 540 ml Intake Oral 590 ml IV Total 1750 ml Output Urine Total 1800 ml # Bowel Movements 2 General Appearance: Alert, Oriented X3, Cooperative, mild distress HEENT: Atraumatic, PERRLA Lungs: Other (Rhonchi in right base) Cardiovascular: Normal S1, Normal S2 Abdomen: Normal bowel sounds, Soft, No tenderness, No hepatospenomegaly, No masses Musculoskeletal: Normal sensory function, Normal motor function Skin: Dry, Intact Psych/Mental Status: Mental status NL, Mood NL Medications Current Medications Medications Dose Ordered Sig/Shlomo Route Start Time Stop Time Status Last Admin Dose Admin Norepinephrine Bitartrate 250 ml @ 3.75 mls/hr Q24H IV 11/25/24 10:45 11/25/24 10:47 3.75 MLS/HR Diagnostic Test (Pha) 1 strip Q6HR 11/25/24 18:00 11/28/24 11:51 1 STRIP Insulin Human Regular Q6HR SC 11/25/24 18:00 11/27/24 12:17 2 UNITS Dextrose 50 ml UD PRN IV 11/25/24 12:45 Docusate Sodium 100 mg BIDPRN PRN PO 11/25/24 12:45 Enoxaparin Sodium 40 mg DAILY SC 11/26/24 10:00 11/28/24 11:18 40 MG Nitroglycerin 0.4 mg Q5MINP PRN SL 11/25/24 12:45 Vancomycin HCl 0 ml @ 0 mls/hr UD IV 11/25/24 12:45 Morphine Sulfate 2 mg Q4HPRN PRN IV 11/25/24 13:30 Hold 11/26/24 04:32 2 MG Ondansetron HCl 4 mg Q4HPRN PRN IV 11/25/24 13:30 11/26/24 14:58 4 MG Acetaminophen/ Hydrocodone Bitart 1 tab Q6HPRN PRN PO 11/26/24 15:00 11/26/24 20:19 1 TAB Pantoprazole Sodium 40 mg DAILY@0600 PO 11/27/24 06:00 11/28/24 06:03 40 MG Calcium Carbonate 500 mg QIDPRN PRN PO 11/26/24 15:00 11/27/24 11:00 500 MG Vancomycin HCl 150 ml @ 150 mls/hr Q12H IV 11/27/24 12:00 11/28/24 12:03 150 MLS/HR Cefepime HCl 50 ml @ 12.5 mls/hr Q8HR IV 11/27/24 14:00 11/28/24 05:51 12.5 MLS/HR Albuterol 2.5 mg Q6HWA NEB 11/27/24 12:00 11/28/24 11:11 2.5 MG Ipratropium [place] 0.5 mg Q6HWA NEB 11/27/24 12:00 11/28/24 11:11 0.5 MG Laboratory Results Laboratory Tests 11/28/24 10:39 Chemistry Test 11/28/24 10:39 Albumin 3.8 g/dL (3.2-4.8) Calcium Level 9.4 mg/dL (8.7-10.4) Total Protein 6.5 g/dL (5.7-8.2) LFT Test 11/28/24 10:39 Alanine Aminotransferase (ALT) 29 U/L (7-40) Alkaline Phosphatase 60 U/L (46-116) Aspartate Amino Transferase (AST) 23 U/L (13-40) Total Bilirubin 0.4 mg/dL (0.2-1.0) Urinalysis Test 11/25/24 09:10 Urine Color Yellow (Yellow) Urine Clarity Cloudy (Clear) H Urine pH 5.5 (5.0-9.0) Urine Specific [place] 1.015 (1.001-1.035) Urine Protein 2+ (Negative) H Urine Ketones Negative (Negative) Urine Blood 3+ /uL (Negative) H Urine Nitrite Negative (Negative) Urine Bilirubin Negative (Negative) Urine Urobilinogen Normal mg/dL (Negative) Urine Leukocyte Esterase 3+ /uL (Negative) Urine RBC 482 /hpf (0 - 3) Urine WBC Clumps Present /hpf (None Seen) Urine Microscopic WBC 2939 /HPF (0-3) H Urine Squamous Epithelial Cells None seen /hpf (<5) Urine Bacteria Many /hpf (None Seen) H Urine Mucus Few (None Seen) Urine Glucose Normal mg/dL (Normal) Microbiology Microbiology Date/Time Source Procedure Growth Status 11/25/24 15:00 Nose MRSA Screen - Final Complete 11/25/24 11:22 Blood Blood Culture - Preliminary NO GROWTH AFTER 72 HOURS OF INCUBATION. Resulted 11/25/24 09:10 Urine - [place] Urine Culture - Final Complete Labs and/or images reviewed: Labs reviewed by me, Image(s) reviewed by me Assessment/Plan Assessment/Plan Impression: -septic shock secondary to complicated cystitis -complicated cystitis -history of CVA with bed-bound status -chronic indwelling Andrade catheter -gout -chronic back pain Plan: -no events overnight. -potassium replacement -deescalate antibiotics to cefepime, stop vancomycin -cultures reviewed -stop IV fluids -repeat labs in a.m. Reassess for discharge in a.m. Total time spent with patient discussing and formulating plan of care: 35 minutes. This medical document was created using an electronic medical record system with [employer] dictation system. Although this document has been carefully reviewed, there may still be some phonetic and typographical errors. These areas are purely typographical due to imperfections of the software programs, and do not reflect any compromise in the patient's medical care. Plan discussed with: Patient, Other (RN) My Orders Orders - FERNANDO HURST NP Procedure Category Date Status Time Basic Metabolic Panel LAB 11/29/24 Verified 04:00 Date of Service: Nov 28, 2024 Billing Provider: FERNANDO HURST NP Common Visit Codes: [id number] INP/OBS CARE(HIGH) FERNANDO HURST NP Nov 28, 2024 15:46
[2024-11-28] MEDS: POTASSIUM EFFERVESENT TAB 25 MEQ PO ONE (17:28)
--- NOTE | 2024-11-28 23:18 | DVHPN2 ---
Progress Note - Dictate Date Seen: Nov 28, 2024 Medical Necessity Reason Pt with a Central, PICC or Fol: Yes The following are medically ne: Trivedi Catheter Reason for trivedi catheter: Strict I&O Subjective Patient seen and examined at bedside. Breathing comfortably on room air. Overnight events reviewed. vital signs Vital Sign Date Time Temp Pulse Resp B/P (MAP) Pulse Ox O2 Delivery O2 Flow Rate FiO2 11/28/24 21:00 98.8 100 16 150/95 (113) 96 98.8 11/28/24 20:00 Room Air* 0 21 Total Intake and Output 11/27/24 11/27/24 11/28/24 15:00 23:00 07:00 Intake Total 1290 ml 850 ml 200 ml Output Total 1600 ml 200 ml Balance 1290 ml -750 ml 0 ml medications Current Medications Medications Dose Ordered Sig/Shlomo Route Start Time Stop Time Status Last Admin Dose Admin Norepinephrine Bitartrate 250 ml @ 3.75 mls/hr Q24H IV 11/25/24 10:45 11/25/24 10:47 3.75 MLS/HR Diagnostic Test (Pha) 1 strip Q6HR 11/25/24 18:00 11/28/24 17:08 1 STRIP Insulin Human Regular Q6HR SC 11/25/24 18:00 11/27/24 12:17 2 UNITS Dextrose 50 ml UD PRN IV 11/25/24 12:45 Docusate Sodium 100 mg BIDPRN PRN PO 11/25/24 12:45 Enoxaparin Sodium 40 mg DAILY SC 11/26/24 10:00 11/28/24 11:18 40 MG Nitroglycerin 0.4 mg Q5MINP PRN SL 11/25/24 12:45 Morphine Sulfate 2 mg Q4HPRN PRN IV 11/25/24 13:30 Hold 11/26/24 04:32 2 MG Ondansetron HCl 4 mg Q4HPRN PRN IV 11/25/24 13:30 11/26/24 14:58 4 MG Acetaminophen/ Hydrocodone Bitart 1 tab Q6HPRN PRN PO 11/26/24 15:00 11/28/24 22:02 1 TAB Pantoprazole Sodium 40 mg DAILY@0600 PO 11/27/24 06:00 11/28/24 06:03 40 MG Calcium Carbonate 500 mg QIDPRN PRN PO 11/26/24 15:00 11/27/24 11:00 500 MG Cefepime HCl 50 ml @ 12.5 mls/hr Q8HR IV 11/27/24 14:00 11/28/24 22:02 12.5 MLS/HR Albuterol 2.5 mg Q6HWA NEB 11/27/24 12:00 11/28/24 19:22 2.5 MG Ipratropium [place] 0.5 mg Q6HWA NEB 11/27/24 12:00 11/28/24 19:22 0.5 MG objective Gen.: Patient lying in bed in no apparent distress. Breathing on room air. Head: Normocephalic, atraumatic. Eyes: EOMI/PERRLA. Ears: Normal hearing. Normal anatomy. Neck/trachea: Trachea midline, supple. Nose: Normal external anatomy. Mouth: Moist mucous membranes. Chest: Decreased air entry bilaterally. No wheezing or rhonchi. Cardiovascular: Positive S1, positive S2. Regular rate and rhythm. Abdomen: Positive bowel sounds in all 4 quadrants. Soft, non-tender, non- distended. : Deferred. Rectal: Deferred. Skin: Warm, dry. Intact. Extremities: 2+ radial pulses bilaterally. No lower extremity edema. Neuro: Awake, alert, oriented x3. No gross motor or sensory deficits. Cranial nerves II through XII intact. Gait not assessed. laboratory and microbiology Laboratory Tests 11/28/24 10:39 Test 11/28/24 10:39 Range/Units Serum Glucose 98 74-106 mg/dL Assessment/Plan Impression: Acute hypoxic respiratory failure Septic shock Hypokalemia Urinary tract infection, chronic indwelling Trivedi Pneumonitis Atelectasis Events: Remains on room air Supplemental oxygen PRN Continue bronchodilators q.6 hours Continue antibiotics for UTI Blood cultures show no growth after 72 hours MRSA screen negative On IV fluids at 100 ml/hr. Incentive spirometry for atelectasis. Head of bed elevation Aspiration precautions. Monitor renal function. Monitor electrolytes. Supplement as necessary. Potassium supplementation Monitor ins and outs recommendations appreciated DVT prophylaxis Labs and imaging reviewed. Rest of plan as noted below. Plan: Supplemental oxygen PRN Titrate to keep O2 sats above 92%. Continue antibiotics Follow up cultures Bronchodilators Incentive spirometry for atelectasis Head of bed elevation Aspiration precautions IV fluids with NS at 100 ml/hr Monitor renal function. Monitor electrolytes. Supplement as necessary. Monitor ins and outs Pt has chronic indwelling Trivedi DVT prophylaxis. Prognosis: Guarded given patient's multiple co-morbidities. Rest of plan per hospitalist and other consultants. Thank you, CLINICAL SERVICES SPECIALIST Akash, for allowing me to participate in this patient's care. Further recommendations will depend on the patient's clinical course. Please do not hesitate to contact me if you have any questions or concerns. This medical document was created using an electronic medical record system with [employer] dictation system. Although these documentations are being carefully reviewed, there may still be some phonetic and typographical changes. The errors are purely typographical, due to imperfection on the software program, and do not reflect any compromise in the patient's medical care. Dietary Evaluation Review Comments: 1) Initiate MVI @ 1 tb qd 2) Initiate vitamin C @ 500 mg bid 3) Initiate Glucerna qd. Encourage optimal PO intake 4) Follow-up with cardiology 5) Continue to monitor I&O, labs, and skin integrity Expected Outcomes/Goals: 1) appetite and labs to improve 2) wounds to improve 3) f/u in 3-5 days Plan discussed with: Patient, Other (ELIOT Newell) VAN AHUJA MD Nov 28, 2024 23:18
[2024-11-29] VITALS (14 sets, daily range): BP systolic 121–163; BP diastolic 81–104; PULSE 84–108; RESP 15–20; TEMP 97.8–98.4; O2SAT 94–100
[2024-11-29 05:51] LABS: Sodium 143 mmol/L (136-145)
[2024-11-29 05:52] LABS: Anion Gap 11 (5-15); Carbon Dioxide 23 mmol/L (20-31)
[2024-11-29 05:53] LABS: Calcium 9.1 mg/dL (8.7-10.4); Chloride 109 mmol/L (98-107); Potassium 3.3 mmol/L (3.5-5.1)
[2024-11-29 05:57] LABS: BUN/Creatinine Ratio 9.3 (10.0-20.0); Glucose 87 mg/dL (74-106)
[2024-11-29 06:02] LABS: Blood Urea Nitrogen 8 mg/dL (9-23)
--- NOTE | 2024-11-29 10:09 | DVHDS2 ---
Discharge Summary Date of Admission Nov 25, 2024 at 12:42 Date of Discharge: Nov 29, 2024 Admitting Diagnosis Sepsis secondary to pneumonia Labs/Diagnostic Data: Laboratory Results Test 11/29/24 05:29 11/29/24 05:15 11/28/24 10:39 11/27/24 03:22 POC Glucose 92 mg/dl (70-106) Sodium Level 143 mmol/L (136-145) Potassium Level 3.3 mmol/L (3.5-5.1) Chloride Level 109 mmol/L (98-107) Carbon Dioxide Level 23 mmol/L (20-31) Anion Gap 11 (5-15) Blood Urea Nitrogen 8 mg/dL (9-23) Creatinine 0.86 mg/dL (0.700-1.30) Glomerular Filtration Rate Calc 92 mL/min (>90) BUN/Creatinine Ratio 9.3 (10.0-20.0) Serum Glucose 87 mg/dL (74-106) Calcium Level 9.1 mg/dL (8.7-10.4) White Blood Count 5.4 10^3/uL (4.4-10.8) Red Blood Count 4.52 10^6/uL (4.5-5.90) Hemoglobin 11.0 g/dL (13.5-17.5) Hematocrit 33.3 % (41.0-53.0) Mean Corpuscular Volume 73.7 fL (80.0-100.0) Mean Corpuscular Hemoglobin 24.3 pg (28.0-32.0) Mean Corpuscular Hemoglobin Concent 32.9 g/dL (32.0-36.0) Red Cell Distribution Width 17.1 % (11.8-14.3) Platelet Count 282 10^3/uL (140-450) Mean Platelet Volume 7.3 fL (6.9-10.8) Neutrophils (%) (Auto) 72.2 % (37.0-80.0) Lymphocytes (%) (Auto) 15.9 % (10.0-50.0) Monocytes (%) (Auto) 9.3 % (0.0-12.0) Eosinophils (%) (Auto) 2.2 % (0.0-7.0) Basophils (%) (Auto) 0.4 % (0.0-2.0) Neutrophils # (Auto) 3.9 10 ^3/uL (1.6-8.6) Lymphocytes # (Auto) 0.9 10 ^3/uL (0.4-5.4) Monocytes # (Auto) 0.5 10 ^3/uL (0-1.3) Eosinophils # (Auto) 0.1 10 ^3/uL (0-0.8) Basophils # (Auto) 0 10 ^3/uL (0-0.2) Nucleated Red Blood Cells 0.1 % Total Bilirubin 0.4 mg/dL (0.2-1.0) Aspartate Amino Transferase (AST) 23 U/L (13-40) Alanine Aminotransferase (ALT) 29 U/L (7-40) Alkaline Phosphatase 60 U/L (46-116) Total Protein 6.5 g/dL (5.7-8.2) Albumin 3.8 g/dL (3.2-4.8) Vancomycin Level Trough 20.4 ug/mL (5-10) Test 11/25/24 13:17 11/25/24 11:22 11/25/24 09:10 11/25/24 08:47 Influenza Type A Antigen Negative (Negative) Influenza Type B Antigen Negative (Negative) SARS-CoV-2 Antigen (Rapid) Negative (NEGATIVE) Lactic Acid Level 1.2 mmol/L (0.4-2.0) Urine Color Yellow (Yellow) Urine Clarity Cloudy (Clear) Urine pH 5.5 (5.0-9.0) Urine Specific [place] 1.015 (1.001-1.035) Urine Protein 2+ (Negative) Urine Ketones Negative (Negative) Urine Blood 3+ /uL (Negative) Urine Nitrite Negative (Negative) Urine Bilirubin Negative (Negative) Urine Urobilinogen Normal mg/dL (Negative) Urine Leukocyte Esterase 3+ /uL (Negative) Urine RBC 482 /hpf (0 - 3) Urine WBC Clumps Present /hpf (None Seen) Urine Microscopic WBC 2939 /HPF (0-3) Urine Squamous Epithelial Cells None seen /hpf (<5) Urine Bacteria Many /hpf (None Seen) Urine Mucus Few (None Seen) Urine Glucose Normal mg/dL (Normal) Troponin I High Sensitivity 11 ng/L (</=54) Other Laboratory Tests 11/29/24 05:15 11/28/24 10:39 Brief Hx & Hospital Course: History of Present Illness 79-year-old male past medical history UTIs hyperlipidemia hypertension CVA bed- bound diabetes gout chronic back pain Andrade dependent chief complaint patient comes from a detention facility today for generalized weakness and shortness of the breath staff found patient to be hypoxic at 70% on room air he came from known sweats so they brought him in for evaluation when evaluating patient's labs and imaging normal saline was given patient was hypertensive 80s over 60s with his blood pressure so he was provided Levophed drip ceftriaxone was given hemoglobin was found to be 11.435.4 white count was 17.6 UA shows some blood and some white cells chest x-ray showed right pulmonary pneumonia and airspace disease. With these findings we will admit patient has since patient found to be with the acute sepsis he will need to be placed in ICU since he is hypertensive Levophed drip. Course of hospitalization: Patient was started on empiric antibiotic therapy with vancomycin and cefepime. Patient was given IV hydration, bronchodilators, with the patient subsequently being weaned off of norepinephrine drip as well as O2 supplementation. Patient has persistent right lower lobe pneumonia with the patient stating that his respiratory status has improved. Patient had his Andrade catheter changed. Urine culture contaminated with noted three different strains growing. White blood cell count is now within normal limits. Patient will be discharged back to detention facility with the continued antibiotic with cefdinir 300 mg p.o. twice a day for seven days. He will continue all previous home medications that he has been provided at the facility. Physical examination. General: Alert and Oriented x3. No acute distress. Well-nourished. Eyes: EOMI. Anicteric. HENT: Moist mucous membranes. Lungs: Clear to auscultation bilaterally. No accessory muscle use. Cardiovascular: Regular rate and rhythm. No murmur. No JVD. Abdomen: Soft, non-tender and non-distended. No palpable masses. Extremities: No edema. Non-tender. Skin: No rashes or lesions. Warm. Neurologic: No focal neurological deficits. CN II-XII grossly intact, but not individually tested. Psychiatric: Cooperative. Appropriate mood and affect. Total time spent with patient discussing and formulating plan of care: 35 minutes. This medical document was created using an electronic medical record system with [email or web address] dictation system. Although this document has been carefully reviewed, there may still be some phonetic and typographical errors. These areas are purely typographical due to imperfections of the software programs, and do not reflect any compromise in the patient's medical care. Consults/Reason for consult Pulmonology: Acute hypoxic respiratory failure with pneumonia Condition at Discharge: Guarded Final Diagnosis/Problems List Sepsis secondary to complicated cystitis Secondary diagnosis: Acute hypoxic respiratory failure -community-acquired pneumonia, probable Gram-positive/Gram-negative etiology -septic shock secondary to complicated cystitis -complicated cystitis -history of CVA with bed-bound status -chronic indwelling Andrade catheter -gout -chronic back pain Discharge Disposition: Group Home Facility Discharge Instruct/Medications Diet: Cardiac 2g Na,low cholest Diet comment: Service Activity: No Restrictions, As Tolerated Follow Up/Referral: Per accepting provider Medications: Refer to medication reconciliation form Cefdinir 300 mg p.o. b.i.d. for seven days Scheduled Acetaminophen (Acetaminophen), 650 MG PO Q6HPRN, (Reported) Albuterol Sulfate (Albuterol Sulfate), 1 VIAL NEB Q6H, (Reported) Allopurinol (Allopurinol), 100 MG PO DAILY, (Reported) Alpha Tocopheryl Acid Succinat (Vitamin E), 400 UNIT PO DAILY, (Reported) Ascorbic Acid (Vitamin C Tablet), 1 TAB PO BID, (Reported) Duloxetine Hcl (Cymbalta), 1 CAP PO DAILY, (Reported) Finasteride (Finasteride), 5 MG PO DAILY@BREAKFAST, (Reported) Gabapentin (Gabapentin), 100 MG PO TID Gabapentin (Gabapentin), 1 CAP PO DAILY, (Reported) Gemfibrozil (Gemfibrozil), 600 MG PO AC, (Reported) Hydrocodone-Acetaminophen (Hydrocodone Bitartrate/AC 5-325 mg), 1 TAB PO Q6HR, (Reported) Insulin Regular (Human) (Humulin R), 2 UNIT SC ACHS, (Reported) Lactobacillus (Probiotic Acidophilus), 1 CAP PO BID, (Reported) Levofloxacin Hemihydrate (Levaquin 500 Mg), 500 MG PO DAILY Levofloxacin Hemihydrate (Levofloxacin), 1 TAB PO DAILY, (Reported) Lisinopril (Lisinopril), 20 MG PO DAILY, (Reported) Magnesium Hydroxide (Milk Of Magnesia Oral Suspension), 30 ML PO DAILY, (Reported) Tamsulosin Hcl (Tamsulosin Hcl), 0.4 MG PO QPM, (Reported) Scheduled PRN Hydrochlorothiazide (Hydrochlorothiazide), 12.5 MG PO Q6HPRN PRN for SBP>150, (Reported) Nitroglycerin (Ntrostat Sublingual), 0.4 MG SL Q5MIN PRN for CHEST PAIN, (Reported) Miscellaneous Medications Naloxone HCl (Naloxone Hydrochloride), 4 MG NA, (Reported) 36 Discharge Statement: "Patient was advised to return to the ER or call 911 if any headaches, dizziness, shortness of breath, chest pain, abdominal pain, bleeding, fevers, or worsening of medical condition. Patient was counseled about treatment plan, medications, possible side effects, patientverbalized understanding. All questions were answered to the best of my ability. This discharge took greater then 30 minutes in planning, reviewing documentation, counseling the patient, and discussing with other team members." ASSESSMENT ASSESSMENT Assessment Sepsis secondary to complicated cystitis Date of Service: Nov 29, 2024 Billing Provider: FERNANDO HURST NP Common Visit Codes: [id number]/[id number] DISCH DAY >30min FERNANDO HURST NP Nov 29, 2024 10:09
[2024-11-29] MEDS: POTASSIUM EFFERVESENT TAB 25 MEQ PO ONE (11:21)
--- NOTE | 2024-11-29 23:57 | DVHPN2 ---
Progress Note - Dictate Date Seen: Nov 29, 2024 Medical Necessity Reason Pt with a Central, PICC or Fol: Yes The following are medically ne: Trivedi Catheter Reason for trivedi catheter: Strict I&O Subjective Patient seen and examined at bedside. Breathing comfortably on room air. Overnight events reviewed. vital signs Vital Sign Date Time Temp Pulse Resp B/P (MAP) Pulse Ox O2 Delivery O2 Flow Rate FiO2 11/29/24 21:00 98.2 106 20 121/81 (94) 94 98.2 11/29/24 20:00 Room Air* 0 21 Total Intake and Output 11/28/24 11/28/24 11/29/24 15:00 23:00 07:00 Intake Total 500 ml 650 ml Output Total 1400 ml 1600 ml Balance -900 ml -950 ml medications Current Medications Medications Dose Ordered Sig/Shlomo Route Start Time Stop Time Status Last Admin Dose Admin Diagnostic Test (Pha) 1 strip Q6HR 11/25/24 18:00 11/29/24 17:27 1 STRIP Insulin Human Regular Q6HR SC 11/25/24 18:00 11/27/24 12:17 2 UNITS Dextrose 50 ml UD PRN IV 11/25/24 12:45 Docusate Sodium 100 mg BIDPRN PRN PO 11/25/24 12:45 Enoxaparin Sodium 40 mg DAILY SC 11/26/24 10:00 11/29/24 11:22 40 MG Nitroglycerin 0.4 mg Q5MINP PRN SL 11/25/24 12:45 Morphine Sulfate 2 mg Q4HPRN PRN IV 11/25/24 13:30 Hold 11/26/24 04:32 2 MG Ondansetron HCl 4 mg Q4HPRN PRN IV 11/25/24 13:30 11/26/24 14:58 4 MG Acetaminophen/ Hydrocodone Bitart 1 tab Q6HPRN PRN PO 11/26/24 15:00 11/28/24 22:02 1 TAB Pantoprazole Sodium 40 mg DAILY@0600 PO 11/27/24 06:00 11/29/24 05:20 40 MG Calcium Carbonate 500 mg QIDPRN PRN PO 11/26/24 15:00 11/27/24 11:00 500 MG Cefepime HCl 50 ml @ 12.5 mls/hr Q8HR IV 11/27/24 14:00 11/29/24 14:28 12.5 MLS/HR Albuterol 2.5 mg Q6HWA NEB 11/27/24 12:00 11/29/24 18:51 2.5 MG Ipratropium [place] 0.5 mg Q6HWA NEB 11/27/24 12:00 11/29/24 18:51 0.5 MG objective Gen.: Patient lying in bed in no apparent distress. Breathing on room air. Head: Normocephalic, atraumatic. Eyes: EOMI/PERRLA. Ears: Normal hearing. Normal anatomy. Neck/trachea: Trachea midline, supple. Nose: Normal external anatomy. Mouth: Moist mucous membranes. Chest: Decreased air entry bilaterally. No wheezing or rhonchi. Cardiovascular: Positive S1, positive S2. Regular rate and rhythm. Abdomen: Positive bowel sounds in all 4 quadrants. Soft, non-tender, non- distended. : Deferred. Rectal: Deferred. Skin: Warm, dry. Intact. Extremities: 2+ radial pulses bilaterally. No lower extremity edema. Neuro: Awake, alert, oriented x3. No gross motor or sensory deficits. Cranial nerves II through XII intact. Gait not assessed. laboratory and microbiology Laboratory Tests 11/29/24 05:15 11/28/24 10:39 Test 11/29/24 05:15 Range/Units Serum Glucose 87 74-106 mg/dL Assessment/Plan Impression: Acute hypoxic respiratory failure Septic shock Hypokalemia Urinary tract infection, chronic indwelling Trivedi Pneumonitis Atelectasis Events: Remains on room air Supplemental oxygen PRN Continue bronchodilators q.6 hours Continue antibiotics for UTI Blood cultures show no growth after 72 hours MRSA screen negative Incentive spirometry for atelectasis. Head of bed elevation Aspiration precautions. Monitor renal function. Monitor electrolytes. Supplement as necessary. Potassium supplementation Check mag level in AM. Monitor ins and outs GI prophylaxis w/ Protonix DVT prophylaxis w/ Lovenox Disposition per hospitalist. Labs and imaging reviewed. Rest of plan as noted below. Plan: Supplemental oxygen PRN Titrate to keep O2 sats above 92%. Continue antibiotics Follow up cultures Bronchodilators Incentive spirometry for atelectasis Head of bed elevation Aspiration precautions Monitor renal function. Monitor electrolytes. Supplement as necessary. Monitor ins and outs Pt has chronic indwelling Trivedi DVT prophylaxis. Prognosis: Guarded given patient's multiple co-morbidities. Rest of plan per hospitalist and other consultants. Thank you, FEED PREPARATION OPERATOR Akash, for allowing me to participate in this patient's care. Further recommendations will depend on the patient's clinical course. Please do not hesitate to contact me if you have any questions or concerns. This medical document was created using an electronic medical record system with [employer] dictation system. Although these documentations are being carefully reviewed, there may still be some phonetic and typographical changes. The errors are purely typographical, due to imperfection on the software program, and do not reflect any compromise in the patient's medical care. Dietary Evaluation Review Comments: 1) Initiate MVI @ 1 tb qd 2) Initiate vitamin C @ 500 mg bid 3) Initiate Glucerna qd. Encourage optimal PO intake 4) Follow-up with cardiology 5) Continue to monitor I&O, labs, and skin integrity Expected Outcomes/Goals: 1) appetite and labs to improve 2) wounds to improve 3) f/u in 3-5 days Plan discussed with: Patient, Other (ELIOT Castaneda) VAN AHUJA MD Nov 29, 2024 23:57
== END 2024-11-29 23:52 | disposition home or self-care (01) | DRG 871 ==
LOC: EDBD 08:06 → ER 08:06 → OVERFLOW 12:42 → ICU WEST 15:00 → TELE-WESTW 11-27 22:10
PROVIDERS: ADMIT Nurse Practitioner Acute Care; ATTEND Nurse Practitioner Acute Care
DX: A41.9 Sepsis, unspecified organism (principal); G93.41 Metabolic encephalopathy; R65.21 Severe sepsis with septic shock; J96.01 Acute respiratory failure with hypoxia; J15.69 Pneumonia due to other Gram-negative bacteria; J15.9 Unspecified bacterial pneumonia; J98.11 Atelectasis; R13.10 Dysphagia, unspecified; I10 Essential (primary) hypertension; E11.9 Type 2 diabetes mellitus without complications; E87.6 Hypokalemia; Z20.822 Contact with and (suspected) exposure to COVID-19; N30.90 Cystitis, unspecified without hematuria; M1A.9XX0 Chronic gout, unspecified, without tophus (tophi); J98.4 Other disorders of lung; G89.29 Other chronic pain; E78.5 Hyperlipidemia, unspecified; Z74.01 Bed confinement status; Z99.81 Dependence on supplemental oxygen; Z87.440 Personal history of urinary (tract) infections; Z86.73 Personal history of transient ischemic attack (TIA), and cerebral infarction without residual deficits; Z82.49 Family history of ischemic heart disease and other diseases of the circulatory system; Z82.3 Family history of stroke
CPT/HCPCS: 36415; 71045; 80048; 80053; 80202; 81001; 82962; 83605; 84484; 85025; 87040; 87081; 87086; 87426; 87804; 93005; 94640; 96361; 96365; 99291; 99292; G0378; J0692; J2405; J2543